=== PATIENT | female | born 1960 | race Caucasian/White ===

== ENCOUNTER 2021-09-09 12:29 | Inpatient (IN) | payer BC ==
[~2021-09-09] VITALS: Ht 162.6 cm; Wt 90.9 kg
[2021-09-09 14:44] LABS: BASOPHILS % (AUTO) 0.3 % (0-1); EOSINOPHILS % (AUTO) 0 % (0-6); HEMATOCRIT 42.4 % (35.0-45.0); HEMOGLOBIN 14.3 g/dl (12.0-16.0); LYMPHOCYTES # (AUTO) 0.6 X10'3 (1.1-4.8); MEAN CORPUSCULAR HEMOGLOBIN 30.8 PG (27.0-31.0); MEAN CORPUSCULAR HGB CONC 33.7 g/dL (33.0-36.5); MEAN CORPUSCULAR VOLUME 91.5 FL (78-98); MEAN PLATELET VOLUME 8.3 FL (7.4-10.4); MONOCYTES # (AUTO) 0.4 X10'3 (0-0.9); MONOCYTES % (AUTO) 6.1 % (2-12); NEUTROPHILS # (AUTO) 4.8 X10'3 (1.8-7.7); NEUTROPHILS % (AUTO) 82.6 % (42-75); PLATELET COUNT 200 X10'3 (140-440); RED BLOOD COUNT 4.63 X10'6 (4.20-5.60); RED CELL DISTRIBUTION WIDTH 13.3 % (11.5-14.5); WHITE BLOOD COUNT 5.8 X10'3 (4.5-11.0)
[2021-09-09 14:52] LABS: D-DIMER 1.71 MG/L FEU (0-0.50)
[2021-09-09 15:00] LABS: ALANINE AMINOTRANSFERASE 84 U/L (12-78); ALBUMIN 3.6 G/DL (3.4-5.0); ALBUMIN/GLOBULIN RATIO 0.7 (1.1-1.5); ALKALINE PHOSPHATASE 124 IU/L (46-116); ANION GAP 14 (8-16); ASPARTATE AMINO TRANSFERASE 72 U/L (10-37); BILIRUBIN,TOTAL 0.5 MG/DL (0.1-1.0); BLOOD UREA NITROGEN 12 MG/DL (7-18); C-REACTIVE PROTEIN 20.46 MG/DL (0.0-0.5); CHLORIDE 96 MMOL/L (99-107); GLUCOSE 126 MG/DL (70-104); POTASSIUM 3.5 MMOL/L (3.5-5.1); SODIUM 135 MMOL/L (135-145); TOTAL CARBON DIOXIDE 25.5 MMOL/L (24-32); TOTAL PROTEIN 8.7 G/DL (6.4-8.2); eGFR 56 ML/MIN
[2021-09-09] MEDS ORDERED: HYDROcodone/acetaminophen 5mg/325mg tablet PO ONE (15:25)
[2021-09-09] MEDS ORDERED: dexamethasone sod phosphate 10mg/ml inj IV STA (15:25)
--- NOTE | 2021-09-09 15:31 | NUR ---
paged dr. huerta infection control [phone]
[2021-09-09] MEDS ORDERED: REMDESIVIR INJ 200 MG in normal saline 100ml IV soln 60 ML IV ONE (15:35)
[2021-09-09] MEDS ORDERED: HYDROcodone/acetaminophen 10/325mg tab PO ONE (15:40)
[2021-09-09] MEDS ORDERED: iohexol 300mg/ml 100ml inj. ONE (15:50)
[2021-09-09] MEDS ORDERED: iohexol 350MG/ML 100ml bottle IV ONE (16:40)
[2021-09-09] MEDS ORDERED: ALPR1TAB7 PO (16:41)
[2021-09-09] MEDS ORDERED: AMPH30CA3 PO (16:41)
[2021-09-09] MEDS ORDERED: HYDR-3972 PO (16:41)
[2021-09-09] MEDS ORDERED: OXYC60TA7 PO (16:41)
[2021-09-09] MEDS ORDERED: DULO60CA65 PO (17:20)
[2021-09-09] MEDS ORDERED: GLIP10TA11 PO (17:20)
[2021-09-09] MEDS ORDERED: CHOL500050 PO (17:20)
[2021-09-09] MEDS ORDERED: FENO145T26 PO (17:20)
[2021-09-09] MEDS ORDERED: HYDR25TA5 PO (17:20)
[2021-09-09] MEDS ORDERED: dextrose 50%-water 50ml dispensing syringe IV PRN ×2 (18:10)
[2021-09-09] MEDS: CefTRIAXone/D5W-Rocephin 1gm 50 ML IV SCH (18:10)
[2021-09-09] MEDS ORDERED: glucagon, human recombinant 1mg kit SUBCUT PRN (18:10)
[2021-09-09] MEDS ORDERED: MESSAGE TO PHARMACY PO ONE (18:10)
[2021-09-09] MEDS ORDERED: dextrose ORAL solution 15 GM/59 ML bottle PO PRN ×2 (18:10)
[2021-09-09] MEDS ORDERED: mag hydrox/Alum hydrox/simeth 30ml oral suspension PO PRN (18:10)
[2021-09-09] MEDS ORDERED: morphine 2 MG/ML inj. syringe IV PRN (18:10)
[2021-09-09] MEDS ORDERED: magnesium hydroxide 30ml (MOM) UD suspension PO PRN (18:10)
[2021-09-09] MEDS ORDERED: acetaminophen 325mg tablet PO PRN (18:10)
[2021-09-09 18:42] LABS: HEMOGLOBIN A1C 6.8 % (4.5-6.2)
[2021-09-09 18:58] LABS: MAGNESIUM 1.9 MG/DL (1.5-2.4); PHOSPHORUS 3.6 MG/DL (2.3-4.5)
[2021-09-09] MEDS: docusate sod 100mg capsule PO SCH (20:00)
[2021-09-09] MEDS ORDERED: dexamethasone sod phosphate 10mg/ml inj IV SCH (20:00)
[2021-09-09] MEDS: HYDROcodone/acetaminophen 10/325mg tab PO PRN (20:00)
--- NOTE | 2021-09-09 20:00 | NUR ---
pt continues to pull off lines and cuff.
[2021-09-09] MEDS: ALPRAZolam 0.5mg tablet PO SCH (20:01)
[2021-09-09] MEDS: morphine 2 MG/ML inj. syringe IV PRN (20:30)
[2021-09-09] MEDS: insulin Lispro (HumaLOG) vial - multi-dose SQ SCH (20:49)
[2021-09-09] MEDS: insulin glargine (Lantus) pen - multi-dose SQ SCH (21:00)
[2021-09-09] MEDS: dexamethasone 6 MG in NS 50ml IV soln IV SCH (21:56)
[2021-09-10] MEDS: OXYcodone (OXYCONTIN) Ext Release 15 MG TAB.SR.12H PO SCH ×3 (00:25→16:00)
[2021-09-10] MEDS: morphine 2 MG/ML inj. syringe IV PRN ×2 (03:23→11:51)
--- NOTE | 2021-09-10 04:21 | NUR ---
pt satting low with o2 in nose and mouth. pt takes it off and desats. spoke with rt and they are going to place a nonrebreather on pt.
[2021-09-10] MEDS: HYDROcodone/acetaminophen 10/325mg tab PO PRN ×2 (05:31→14:25)
[2021-09-10 07:26] LABS: BASOPHILS % (AUTO) 0.1 % (0-1); EOSINOPHILS % (AUTO) 0 % (0-6); HEMOGLOBIN 13.9 g/dl (12.0-16.0); LYMPHOCYTES # (AUTO) 0.6 X10'3 (1.1-4.8); LYMPHOCYTES % (AUTO) 10.9 % (21-51); MEAN CORPUSCULAR HEMOGLOBIN 31.8 PG (27.0-31.0); MEAN CORPUSCULAR HGB CONC 34.8 g/dL (33.0-36.5); MEAN CORPUSCULAR VOLUME 91.4 FL (78-98); MEAN PLATELET VOLUME 8.2 FL (7.4-10.4); MONOCYTES # (AUTO) 0.3 X10'3 (0-0.9); MONOCYTES % (AUTO) 5.3 % (2-12); NEUTROPHILS # (AUTO) 4.7 X10'3 (1.8-7.7); NEUTROPHILS % (AUTO) 83.7 % (42-75); PLATELET COUNT 194 X10'3 (140-440); RED BLOOD COUNT 4.37 X10'6 (4.20-5.60); RED CELL DISTRIBUTION WIDTH 13.2 % (11.5-14.5); WHITE BLOOD COUNT 5.6 X10'3 (4.5-11.0)
[2021-09-10 07:38] LABS: ALBUMIN 2.9 G/DL (3.4-5.0); ANION GAP 15 (8-16); BLOOD UREA NITROGEN 13 MG/DL (7-18); BUN/CREATININE RATIO 17.3 (6.6-38.0); CHLORIDE 99 MMOL/L (99-107); CREATININE 0.75 MG/DL (0.40-0.90); GLUCOSE 148 MG/DL (70-104); POTASSIUM 3.1 MMOL/L (3.5-5.1); SODIUM 136 MMOL/L (135-145); TOTAL CARBON DIOXIDE 21.7 MMOL/L (24-32); eGFR 78 ML/MIN
[2021-09-10] MEDS ORDERED: dextroamphetam/amphetam ER cap 15 MG CAP.ER.24H PO SCH (08:00)
[2021-09-10] MEDS: HYDROchlorothiazide 25mg tablet PO SCH (08:00)
[2021-09-10] MEDS: dexamethasone 6 MG in NS 50ml IV soln IV SCH ×2 (08:00→20:00)
[2021-09-10] MEDS: CefTRIAXone/D5W-Rocephin 1gm 50 ML IV SCH (08:00)
[2021-09-10] MEDS: REMDESIVIR 100 MG in NS 100ml IVPB IV SCH (08:00)
[2021-09-10] MEDS: enoxaparin 40mg/0.4ml syringe SUBCUT SCH (08:58)
[2021-09-10] MEDS: duloxetine 30mg CAPSULE.DR PO SCH (08:59)
[2021-09-10] MEDS: fenofibrate 145mg tablet PO SCH (08:59)
[2021-09-10] MEDS: docusate sod 100mg capsule PO SCH ×3 (08:59→19:45)
[2021-09-10] MEDS: ALPRAZolam 0.5mg tablet PO SCH ×4 (09:00→19:44)
[2021-09-10] MEDS: cholecalciferol (vitamin D3) 1,000 unit (25mcg) tablet PO SCH (09:00)
[2021-09-10 10:00] VITALS: BP 161/75
[2021-09-10 15:48] VITALS: BP 155/76
[2021-09-10] MEDS: lactobacillus rhamnosus 10,000 MMU CELLS/CAPSULE PO SCH (19:44)
[2021-09-10 19:45] VITALS: BP 143/77
[2021-09-10] MEDS: insulin glargine (Lantus) pen - multi-dose SQ SCH (21:00)
[2021-09-10 22:00] VITALS: BP 163/81
[2021-09-11] MEDS: OXYcodone (OXYCONTIN) Ext Release 15 MG TAB.SR.12H PO SCH ×3 (00:10→15:50)
[2021-09-11] MEDS: ondansetron/PF 4mg/2ml inj IV PRN (01:17)
[2021-09-11] MEDS: morphine 2 MG/ML inj. syringe IV PRN ×2 (05:54→20:30)
[2021-09-11 06:30] VITALS: BP 138/74
[2021-09-11] MEDS: CefTRIAXone/D5W-Rocephin 1gm 50 ML IV SCH (07:21)
[2021-09-11] MEDS: cholecalciferol (vitamin D3) 1,000 unit (25mcg) tablet PO SCH (07:22)
[2021-09-11] MEDS: ALPRAZolam 0.5mg tablet PO SCH ×4 (07:22→22:37)
[2021-09-11] MEDS: fenofibrate 145mg tablet PO SCH (07:22)
[2021-09-11] MEDS: lactobacillus rhamnosus 10,000 MMU CELLS/CAPSULE PO SCH ×2 (07:22→21:56)
[2021-09-11] MEDS: duloxetine 30mg CAPSULE.DR PO SCH (07:22)
[2021-09-11] MEDS: HYDROchlorothiazide 25mg tablet PO SCH (07:23)
[2021-09-11] MEDS: enoxaparin 40mg/0.4ml syringe SUBCUT SCH (07:23)
[2021-09-11] MEDS: ADDERALL 30 MG PO SCH (07:28)
[2021-09-11] MEDS: docusate sod 100mg capsule PO SCH ×2 (07:29→21:56)
[2021-09-11 09:41] LABS: BASOPHILS % (AUTO) 0.1 % (0-1); EOSINOPHILS % (AUTO) 0 % (0-6); HEMATOCRIT 42.4 % (35.0-45.0); HEMOGLOBIN 14.5 g/dl (12.0-16.0); LYMPHOCYTES # (AUTO) 0.9 X10'3 (1.1-4.8); LYMPHOCYTES % (AUTO) 11.4 % (21-51); MEAN CORPUSCULAR HEMOGLOBIN 31.8 PG (27.0-31.0); MEAN CORPUSCULAR HGB CONC 34.2 g/dL (33.0-36.5); MEAN CORPUSCULAR VOLUME 92.9 FL (78-98); MEAN PLATELET VOLUME 8.4 FL (7.4-10.4); MONOCYTES # (AUTO) 0.5 X10'3 (0-0.9); MONOCYTES % (AUTO) 6.1 % (2-12); NEUTROPHILS # (AUTO) 6.7 X10'3 (1.8-7.7); NEUTROPHILS % (AUTO) 82.4 % (42-75); PLATELET COUNT 266 X10'3 (140-440); RED BLOOD COUNT 4.56 X10'6 (4.20-5.60); RED CELL DISTRIBUTION WIDTH 13.6 % (11.5-14.5); WHITE BLOOD COUNT 8.2 X10'3 (4.5-11.0)
[2021-09-11 09:46] LABS: ALBUMIN 2.7 G/DL (3.4-5.0); ANION GAP 5 (8-16); BLOOD UREA NITROGEN 16 MG/DL (7-18); BUN/CREATININE RATIO 19.8 (6.6-38.0); CALCIUM 9.5 MG/DL (8.5-10.1); CHLORIDE 96 MMOL/L (99-107); CREATININE 0.81 MG/DL (0.40-0.90); GLUCOSE 152 MG/DL (70-104); SODIUM 131 MMOL/L (135-145); TOTAL CARBON DIOXIDE 30.1 MMOL/L (24-32); eGFR 72 ML/MIN
[2021-09-11] MEDS: dexamethasone 6 MG in NS 50ml IV soln IV SCH ×2 (09:47→21:56)
[2021-09-11 10:00] VITALS: BP 138/75
[2021-09-11] MEDS: insulin Lispro (HumaLOG) vial - multi-dose SQ SCH ×3 (10:08→20:28)
[2021-09-11] MEDS: REMDESIVIR 100 MG in NS 100ml IVPB IV SCH (11:28)
[2021-09-11] MEDS: guaiFENesin 200 MG/10 ML oral syrup UD cup PO PRN ×2 (14:53→14:57)
[2021-09-11 15:06] VITALS: BP 129/61
--- NOTE | 2021-09-11 18:40 | NUR ---
Problems reprioritized. Patient report given, questions answered & plan of care reviewed with PHIL CASTELLANOS.
[2021-09-11 19:31] LABS: ABG BASE EXCESS 3.3 mmol/L (-2.0-2.0); ABG HCO3 28.9 mmol/L (22.0-26.0); ABG PCO2 (T) 47.1 mmHg (32.0-45.0); ABG PO2 (T) 55.1 mmHg (75.0-100.0); ALLEN'S TEST POSITIVE; FCOHb 0.6 % (0.0-3.9); FMetHb 0.3 % (0.0-1.5); FO2Hb 88.2 % (94-97); TOTAL HEMOGLOBIN 14.5 G/dl (12.0-16.0)
[2021-09-11] MEDS: acetaminophen 325mg tablet PO PRN (21:54)
[2021-09-11 22:00] VITALS: BP 150/71
[2021-09-11] MEDS: insulin glargine (Lantus) pen - multi-dose SQ SCH (22:25)
[2021-09-12] MEDS: OXYcodone (OXYCONTIN) Ext Release 15 MG TAB.SR.12H PO SCH ×4 (01:11→23:13)
[2021-09-12 02:00] VITALS: BP 146/74
[2021-09-12] MEDS: HYDROcodone/acetaminophen 10/325mg tab PO PRN ×2 (03:40→13:24)
[2021-09-12 06:17] VITALS: BP 135/72
--- NOTE | 2021-09-12 06:23 | NUR ---
Patient in room ORTHO 4009. I have received report from PHIL CASTELLANOS and had the opportunity to ask questions and assume patient care.
[2021-09-12] MEDS: fenofibrate 145mg tablet PO SCH (07:07)
[2021-09-12] MEDS: duloxetine 30mg CAPSULE.DR PO SCH (07:07)
[2021-09-12] MEDS: HYDROchlorothiazide 25mg tablet PO SCH (07:07)
[2021-09-12] MEDS: cholecalciferol (vitamin D3) 1,000 unit (25mcg) tablet PO SCH (07:07)
[2021-09-12] MEDS: lactobacillus rhamnosus 10,000 MMU CELLS/CAPSULE PO SCH ×2 (07:08→21:37)
[2021-09-12] MEDS: enoxaparin 40mg/0.4ml syringe SUBCUT SCH (07:08)
[2021-09-12] MEDS: ALPRAZolam 0.5mg tablet PO SCH ×4 (07:08→21:37)
[2021-09-12] MEDS: dexamethasone 6 MG in NS 50ml IV soln IV SCH ×2 (07:08→21:37)
[2021-09-12] MEDS: morphine 2 MG/ML inj. syringe IV PRN (07:09)
[2021-09-12] MEDS: ADDERALL 30 MG PO SCH (07:09)
[2021-09-12 07:13] LABS: BASOPHILS % (AUTO) 0 % (0-1); EOSINOPHILS % (AUTO) 0 % (0-6); HEMATOCRIT 40.3 % (35.0-45.0); HEMOGLOBIN 13.7 g/dl (12.0-16.0); LYMPHOCYTES # (AUTO) 0.9 X10'3 (1.1-4.8); LYMPHOCYTES % (AUTO) 8.3 % (21-51); MEAN CORPUSCULAR HEMOGLOBIN 31.6 PG (27.0-31.0); MEAN CORPUSCULAR HGB CONC 34.1 g/dL (33.0-36.5); MEAN CORPUSCULAR VOLUME 92.6 FL (78-98); MEAN PLATELET VOLUME 8.5 FL (7.4-10.4); MONOCYTES # (AUTO) 0.7 X10'3 (0-0.9); MONOCYTES % (AUTO) 6.6 % (2-12); NEUTROPHILS # (AUTO) 8.9 X10'3 (1.8-7.7); NEUTROPHILS % (AUTO) 85.1 % (42-75); PLATELET COUNT 292 X10'3 (140-440); RED BLOOD COUNT 4.35 X10'6 (4.20-5.60); RED CELL DISTRIBUTION WIDTH 13.3 % (11.5-14.5); WHITE BLOOD COUNT 10.5 X10'3 (4.5-11.0)
[2021-09-12 07:24] LABS: D-DIMER 1.12 MG/L FEU (0-0.50)
[2021-09-12 07:51] LABS: ALBUMIN 2.4 G/DL (3.4-5.0); ANION GAP 5 (8-16); BLOOD UREA NITROGEN 20 MG/DL (7-18); BUN/CREATININE RATIO 25.6 (6.6-38.0); C-REACTIVE PROTEIN 10.16 MG/DL (0.0-0.5); CALCIUM 9.2 MG/DL (8.5-10.1); CHLORIDE 97 MMOL/L (99-107); CREATININE 0.78 MG/DL (0.40-0.90); GLUCOSE 173 MG/DL (70-104); POTASSIUM 3.5 MMOL/L (3.5-5.1); SODIUM 133 MMOL/L (135-145); TOTAL CARBON DIOXIDE 30.7 MMOL/L (24-32); eGFR 75 ML/MIN
[2021-09-12] MEDS: docusate sod 100mg capsule PO SCH ×2 (08:00→21:37)
[2021-09-12] MEDS: CefTRIAXone/D5W-Rocephin 1gm 50 ML IV SCH (09:26)
[2021-09-12] MEDS: insulin Lispro (HumaLOG) vial - multi-dose SQ SCH ×3 (09:28→19:39)
[2021-09-12 10:00] VITALS: BP 151/76
[2021-09-12] MEDS: REMDESIVIR 100 MG in NS 100ml IVPB IV SCH (11:13)
[2021-09-12] MEDS: diphenhydrAMINE 25 MG/10 ML UD oral solution PO PRN (14:10)
[2021-09-12 14:58] VITALS: BP 130/84
[2021-09-12 18:00] VITALS: BP 121/78
--- NOTE | 2021-09-12 18:33 | NUR ---
Problems reprioritized. Patient report given, questions answered & plan of care reviewed with AL CASTELLANOS.
[2021-09-12] MEDS: insulin glargine (Lantus) pen - multi-dose SQ SCH (21:17)
[2021-09-12 22:00] VITALS: BP 125/77
[2021-09-13 02:00] VITALS: BP 124/57
[2021-09-13] MEDS: HYDROcodone/acetaminophen 10/325mg tab PO PRN (03:03)
--- NOTE | 2021-09-13 03:12 | NUR ---
Pt continues to be non compliant and won't keep her O2 on. She also has been trying to get out of her bed unassisted all shift.
--- NOTE | 2021-09-13 06:22 | NUR ---
Problems reprioritized. Patient report given, questions answered & plan of care reviewed with Cat CASTELLANOS.
[2021-09-13 07:32] LABS: D-DIMER 1.64 MG/L FEU (0-0.50)
[2021-09-13 07:55] LABS: ALANINE AMINOTRANSFERASE 39 U/L (12-78); ALBUMIN 2.4 G/DL (3.4-5.0); ALBUMIN/GLOBULIN RATIO 0.5 (1.1-1.5); ALKALINE PHOSPHATASE 93 IU/L (46-116); ANION GAP 9 (8-16); ASPARTATE AMINO TRANSFERASE 35 U/L (10-37); BILIRUBIN,TOTAL 0.5 MG/DL (0.1-1.0); BLOOD UREA NITROGEN 22 MG/DL (7-18); C-REACTIVE PROTEIN 7.47 MG/DL (0.0-0.5); CALCIUM 9.6 MG/DL (8.5-10.1); CHLORIDE 98 MMOL/L (99-107); CREATININE 0.71 MG/DL (0.40-0.90); GLUCOSE 153 MG/DL (70-104); POTASSIUM 3.5 MMOL/L (3.5-5.1); SODIUM 137 MMOL/L (135-145); TOTAL CARBON DIOXIDE 29.9 MMOL/L (24-32); TOTAL PROTEIN 7.3 G/DL (6.4-8.2); eGFR 83 ML/MIN
[2021-09-13] MEDS: CefTRIAXone/D5W-Rocephin 1gm 50 ML IV SCH (08:34)
[2021-09-13] MEDS: dexamethasone 6 MG in NS 50ml IV soln IV SCH ×2 (08:34→19:28)
[2021-09-13] MEDS: fenofibrate 145mg tablet PO SCH (08:34)
[2021-09-13] MEDS: OXYcodone (OXYCONTIN) Ext Release 15 MG TAB.SR.12H PO SCH ×2 (08:34→16:13)
[2021-09-13] MEDS: duloxetine 30mg CAPSULE.DR PO SCH (08:34)
[2021-09-13] MEDS: lactobacillus rhamnosus 10,000 MMU CELLS/CAPSULE PO SCH ×2 (08:35→19:26)
[2021-09-13] MEDS: ALPRAZolam 0.5mg tablet PO SCH ×4 (08:35→19:26)
[2021-09-13] MEDS: docusate sod 100mg capsule PO SCH ×2 (08:35→19:26)
[2021-09-13] MEDS: enoxaparin 40mg/0.4ml syringe SUBCUT SCH (08:35)
[2021-09-13] MEDS: HYDROchlorothiazide 25mg tablet PO SCH (08:35)
[2021-09-13] MEDS: cholecalciferol (vitamin D3) 1,000 unit (25mcg) tablet PO SCH (08:35)
[2021-09-13 09:59] VITALS: BP 152/78
[2021-09-13 10:12] LABS: BASOPHILS % (AUTO) 0.1 % (0-1); EOSINOPHILS % (AUTO) 0 % (0-6); HEMATOCRIT 39.8 % (35.0-45.0); HEMOGLOBIN 13.5 g/dl (12.0-16.0); LYMPHOCYTES # (AUTO) 1.3 X10'3 (1.1-4.8); LYMPHOCYTES % (AUTO) 7.8 % (21-51); MEAN CORPUSCULAR HGB CONC 33.9 g/dL (33.0-36.5); MEAN CORPUSCULAR VOLUME 91.6 FL (78-98); MEAN PLATELET VOLUME 8.1 FL (7.4-10.4); MONOCYTES # (AUTO) 1.1 X10'3 (0-0.9); MONOCYTES % (AUTO) 6.9 % (2-12); NEUTROPHILS % (AUTO) 85.2 % (42-75); PLATELET COUNT 350 X10'3 (140-440); RED BLOOD COUNT 4.35 X10'6 (4.20-5.60); RED CELL DISTRIBUTION WIDTH 13.1 % (11.5-14.5); WHITE BLOOD COUNT 16.4 X10'3 (4.5-11.0)
--- NOTE | 2021-09-13 11:02 | NUR ---
Initial: Pt admit DX COVID-19, PNA, and acute encephalopathy possibly metabolic per MD note. Hx T2DM A1C 6.8 per EMR; no education indicated. Pt PO ~25% initial carb controlled diet partially meeting needs. Noted AOx2/confused, LBM 09/09 receiving colace, and currently on 30L HFNC per EMR; constipation, ALOC, and DX likely impacting PO trends. RD recommends Ensure Enlive TIDWM for additional protein/kcals; MD notified. Will continue to monitor. Rec: 1. continue carb controlled diet; consider liberalizing to regular given poor PO trends; encourage PO 2. Ensure Enlive TIDWM; pending MD verification in EMR 3. routine bowel care; 4 days constipation 4. weekly wts Addendum: 09/13/21 at [address] Amended: Links added.
[2021-09-13] MEDS: ADDERALL 30 MG PO SCH (11:25)
[2021-09-13] MEDS: REMDESIVIR 100 MG in NS 100ml IVPB IV SCH (11:26)
--- NOTE | 2021-09-13 11:37 | NUR ---
DM Consult: Addressed; see prior RD note. Addendum: 09/13/21 at [address] Amended: Links added.
[2021-09-13 11:51] LABS: PLATELET ESTIMATE NORMAL; TOTAL CELLS COUNTED 100
[2021-09-13 11:55] LABS: SMUDGE CELLS 2+
[2021-09-13] MEDS: lactose-reduced food (Ensure Enlive) - 237ml bottle PO SCH ×2 (13:00→18:00)
[2021-09-13] MEDS: insulin Lispro (HumaLOG) vial - multi-dose SQ SCH ×2 (15:16→21:42)
--- NOTE | 2021-09-13 16:22 | NUR ---
Pt rested in room throughout shift. Pt remained confused, sedated throughout day. Afternoon dose of scheduled medications held due to patients inability to follow commands. Dr. Garcia notified and new orders placed for ABG lab for patient. Will continue to monitor patient and will notify MD with any changes in patients condition.
[2021-09-13 18:00] VITALS: BP 145/89
[2021-09-13 18:00] LABS: ABG BASE EXCESS 3.7 mmol/L (-2.0-2.0); ABG HCO3 29.1 mmol/L (22.0-26.0); ABG OXYGEN SATURATION 90.1 % (94-97); ABG PCO2 (T) 46.4 mmHg (32.0-45.0); ABG PO2 (T) 58.7 mmHg (75.0-100.0); ALLEN'S TEST POSITIVE; FCOHb 0.6 % (0.0-3.9); FLOW 50 L/min; FMetHb 0.3 % (0.0-1.5); FO2Hb 89.3 % (94-97)
[2021-09-13] MEDS: insulin glargine (Lantus) pen - multi-dose SQ SCH (21:41)
[2021-09-13 22:00] VITALS: BP 112/61
[2021-09-14] MEDS: OXYcodone (OXYCONTIN) Ext Release 15 MG TAB.SR.12H PO SCH ×3 (00:55→16:45)
[2021-09-14] MEDS: morphine 2 MG/ML inj. syringe IV PRN (01:53)
[2021-09-14] MEDS: HYDROcodone/acetaminophen 10/325mg tab PO PRN (05:15)
--- NOTE | 2021-09-14 06:07 | NUR ---
Problems reprioritized. Patient report given, questions answered & plan of care reviewed with Cat.
[2021-09-14] MEDS: lactose-reduced food (Ensure Enlive) - 237ml bottle PO SCH ×3 (08:00→18:00)
[2021-09-14] MEDS: ADDERALL 30 MG PO SCH (08:00)
[2021-09-14 08:07] VITALS: BP 135/57
[2021-09-14 08:18] LABS: EOSINOPHILS % (AUTO) 0 % (0-6); HEMOGLOBIN 12.6 g/dl (12.0-16.0); MONOCYTES # (AUTO) 0.6 X10'3 (0-0.9); RED BLOOD COUNT 4.04 X10'6 (4.20-5.60)
[2021-09-14 08:20] LABS: BASOPHILS % (AUTO) 0.1 % (0-1); HEMATOCRIT 37.1 % (35.0-45.0); LYMPHOCYTES # (AUTO) 1.1 X10'3 (1.1-4.8); LYMPHOCYTES % (AUTO) 6.5 % (21-51); MEAN CORPUSCULAR HEMOGLOBIN 31.1 PG (27.0-31.0); MEAN CORPUSCULAR HGB CONC 33.9 g/dL (33.0-36.5); MEAN CORPUSCULAR VOLUME 91.8 FL (78-98); MEAN PLATELET VOLUME 8.2 FL (7.4-10.4); MONOCYTES % (AUTO) 3.8 % (2-12); NEUTROPHILS # (AUTO) 14.5 X10'3 (1.8-7.7); NEUTROPHILS % (AUTO) 89.6 % (42-75); PLATELET COUNT 350 X10'3 (140-440); RED CELL DISTRIBUTION WIDTH 13.5 % (11.5-14.5); WHITE BLOOD COUNT 16.2 X10'3 (4.5-11.0)
[2021-09-14 08:58] LABS: ALBUMIN 2.1 G/DL (3.4-5.0); ANION GAP 8 (8-16); BLOOD UREA NITROGEN 18 MG/DL (7-18); BUN/CREATININE RATIO 24.3 (6.6-38.0); CALCIUM 8.6 MG/DL (8.5-10.1); CHLORIDE 97 MMOL/L (99-107); CREATININE 0.74 MG/DL (0.40-0.90); GLUCOSE 193 MG/DL (70-104); POTASSIUM 3.3 MMOL/L (3.5-5.1); SODIUM 136 MMOL/L (135-145); TOTAL CARBON DIOXIDE 30.6 MMOL/L (24-32); eGFR 80 ML/MIN
[2021-09-14] MEDS: cholecalciferol (vitamin D3) 1,000 unit (25mcg) tablet PO SCH (09:11)
[2021-09-14] MEDS: dexamethasone 6 MG in NS 50ml IV soln IV SCH ×2 (09:11→20:00)
[2021-09-14] MEDS: CefTRIAXone/D5W-Rocephin 1gm 50 ML IV SCH (09:11)
[2021-09-14] MEDS: fenofibrate 145mg tablet PO SCH (09:12)
[2021-09-14] MEDS: duloxetine 30mg CAPSULE.DR PO SCH (09:12)
[2021-09-14] MEDS: ALPRAZolam 0.5mg tablet PO SCH ×4 (09:12→19:59)
[2021-09-14] MEDS: docusate sod 100mg capsule PO SCH ×2 (09:12→20:00)
[2021-09-14] MEDS: lactobacillus rhamnosus 10,000 MMU CELLS/CAPSULE PO SCH ×2 (09:14→19:59)
[2021-09-14] MEDS: enoxaparin 40mg/0.4ml syringe SUBCUT SCH (09:15)
[2021-09-14] MEDS: HYDROchlorothiazide 25mg tablet PO SCH (09:21)
[2021-09-14 10:00] VITALS: BP 150/63
[2021-09-14] MEDS: insulin Lispro (HumaLOG) vial - multi-dose SQ SCH ×2 (10:32→14:18)
[2021-09-14] MEDS ORDERED: LIDOcaine 2% 10ml TOPICAL JELLY (Urojet) TP ONE (12:45)
[2021-09-14 14:00] VITALS: BP 129/45
[2021-09-14 18:00] VITALS: BP 143/78
[2021-09-14] MEDS: insulin glargine (Lantus) pen - multi-dose SQ SCH (21:46)
[2021-09-14 22:00] VITALS: BP 131/77
[2021-09-15] MEDS: methylPREDNISolone sod succ 125mg/2ml vial IV SCH ×4 (00:12→23:45)
[2021-09-15] MEDS: HYDROcodone/acetaminophen 10/325mg tab PO PRN (00:13)
[2021-09-15 02:00] VITALS: BP 123/75
[2021-09-15 06:00] VITALS: BP 131/69
--- NOTE | 2021-09-15 06:10 | NUR ---
Problems reprioritized. Patient report given, questions answered & plan of care reviewed with Cat CASTELLANOS.
[2021-09-15] MEDS: ADDERALL 30 MG PO SCH (08:00)
[2021-09-15] MEDS: lactose-reduced food (Ensure Enlive) - 237ml bottle PO SCH ×3 (08:00→18:00)
[2021-09-15] MEDS: docusate sod 100mg capsule PO SCH ×2 (08:43→20:44)
[2021-09-15] MEDS: CefTRIAXone/D5W-Rocephin 1gm 50 ML IV SCH (08:43)
[2021-09-15] MEDS: enoxaparin 40mg/0.4ml syringe SUBCUT SCH (08:43)
[2021-09-15] MEDS: lactobacillus rhamnosus 10,000 MMU CELLS/CAPSULE PO SCH ×2 (08:43→20:43)
[2021-09-15] MEDS: fenofibrate 145mg tablet PO SCH (08:43)
[2021-09-15] MEDS: ALPRAZolam 0.5mg tablet PO SCH ×4 (08:43→20:43)
[2021-09-15] MEDS: duloxetine 30mg CAPSULE.DR PO SCH (08:44)
[2021-09-15 08:51] LABS: D-DIMER 0.93 MG/L FEU (0-0.50)
[2021-09-15] MEDS: cholecalciferol (vitamin D3) 1,000 unit (25mcg) tablet PO SCH (08:53)
[2021-09-15] MEDS: HYDROchlorothiazide 25mg tablet PO SCH (09:11)
[2021-09-15] MEDS: insulin Lispro (HumaLOG) vial - multi-dose SQ SCH ×3 (09:17→21:06)
[2021-09-15 10:00] VITALS: BP 144/60
[2021-09-15] MEDS ORDERED: oxyCODONE SR 40mg (sust release) tab PO SCH (11:55)
[2021-09-15] MEDS ORDERED: LORazepam 2 mg/ml vial IV ONE (11:55)
[2021-09-15] MEDS: oxyCODONE SR 10mg (sust. release) tab PO SCH ×2 (13:48→20:43)
[2021-09-15 14:00] VITALS: BP 169/87
[2021-09-15 14:18] LABS: EOSINOPHILS % (AUTO) 0 % (0-6); LYMPHOCYTES # (AUTO) 0.9 X10'3 (1.1-4.8); MEAN PLATELET VOLUME 8.1 FL (7.4-10.4); RED CELL DISTRIBUTION WIDTH 13.6 % (11.5-14.5); WHITE BLOOD COUNT 22.4 X10'3 (4.5-11.0)
[2021-09-15 14:19] LABS: BASOPHILS % (AUTO) 0.1 % (0-1); HEMATOCRIT 41.1 % (35.0-45.0); MEAN CORPUSCULAR HEMOGLOBIN 31.1 PG (27.0-31.0); MEAN CORPUSCULAR VOLUME 91.5 FL (78-98); MONOCYTES % (AUTO) 4.4 % (2-12); NEUTROPHILS # (AUTO) 20.5 X10'3 (1.8-7.7); NEUTROPHILS % (AUTO) 91.5 % (42-75); PLATELET COUNT 465 X10'3 (140-440)
[2021-09-15 14:26] LABS: ALBUMIN 2.2 G/DL (3.4-5.0); ANION GAP 9 (8-16); BLOOD UREA NITROGEN 21 MG/DL (7-18); BUN/CREATININE RATIO 27.3 (6.6-38.0); CALCIUM 9.8 MG/DL (8.5-10.1); CHLORIDE 97 MMOL/L (99-107); CREATININE 0.77 MG/DL (0.40-0.90); GLUCOSE 177 MG/DL (70-104); POTASSIUM 3.3 MMOL/L (3.5-5.1); SODIUM 137 MMOL/L (135-145); TOTAL CARBON DIOXIDE 31.5 MMOL/L (24-32); eGFR 76 ML/MIN
[2021-09-15 14:42] LABS: PLATELET ESTIMATE INCREASED; POLYCHROMASIA FEW; TOTAL CELLS COUNTED 100; TOXIC VACUOLATION FEW
[2021-09-15] MEDS ORDERED: ziprasidone IM 20mg inj **IM only IM ONE (15:55)
[2021-09-15 18:00] VITALS: BP 155/80
--- NOTE | 2021-09-15 18:00 | NUR ---
also on 15liters NRB mask Addendum: 09/15/21 at 2036 by Beverly Maldonado RN Amended: Links added.
--- NOTE | 2021-09-15 18:06 | NUR ---
Pt rested in room throughout the AM. At appx 10am pt became combative and aggressive and pulling hi flow O2 and and O2 mask off of face. Pt was not easily directble and refused to place items back on and would not allow staff to assist without aggressive behavior. Pt proceeded to kick and fight. notified and new orders placed. Pt became more upset and aggressive and needed addition medication. MD verbally ordered one time medication for patients uncontrollable behavior. Pt provided ordered medication and calmed down. Please see MAR and additional orders and addtl information. Addendum: 09/15/21 at 1838 by Vasyl Murray RN Pt care needs required frequent checks and maximum care throughout the day. PM nurse provided full report of patient.
--- NOTE | 2021-09-15 18:15 | NUR ---
Patient in room ORTHO 4009. I have received report from Vasyl CASTELLANOS and had the opportunity to ask questions and assume patient care. Addendum: 09/15/21 at 1848 by Brynn Hill RN Amended: Links added.
[2021-09-15] MEDS ORDERED: potassium Cl 40MEQ/1/2NS 520ml 520 ML IV PRN (19:45)
[2021-09-15] MEDS ORDERED: potassium Cl 20 mEq SR tablet PO PRN (19:45)
[2021-09-15] MEDS: K and/or MAG REPLACEMENT MC SCH (20:00)
--- NOTE | 2021-09-15 20:35 | NUR ---
Pt. is awake and alert to own name, place, but not to current events; reoriented pt. Cleaned pt. and repositioned for comfort. Released restraints and no s/s of injuries noted at this time; pt cooperative. Sitter in place for bed A but also keeping an eye on the patient. Bed in low position. Addendum: 09/16/21 at 0002 by Brynn Hill RN Amended: Links added.
[2021-09-15 22:00] VITALS: BP 142/67
--- NOTE | 2021-09-15 22:00 | NUR ---
60liters HF and also wearing 15 liters nrb mask Addendum: 09/15/21 at 2247 by Beverly Maldonado RN Amended: Links added.
--- NOTE | 2021-09-15 23:00 | NUR ---
Left a voice mail message for Montse taylor's family member Addendum: 09/16/21 at 0714 by Brynn Hill RN Amended: Links added.
[2021-09-15] MEDS: insulin glargine (Lantus) pen - multi-dose SQ SCH (23:03)
[2021-09-15] MEDS: acetaminophen 325mg tablet PO PRN (23:54)
[2021-09-16] MEDS: potassium Cl 20 mEq SR tablet PO PRN ×2 (00:45→05:00)
[2021-09-16 02:00] VITALS: BP 118/72
--- NOTE | 2021-09-16 02:00 | NUR ---
wearing 15liters nrb mask and 60 liters high flow oxygen Addendum: 09/16/21 at 0227 by Beverly Maldonado RN Amended: Links added.
--- NOTE | 2021-09-16 04:53 | NUR ---
Please omit any charting on hourly rounding that indicated no restraints or sitter for this patient; pt. in restraints, a sitter, and audible tab alarms all in place. Addendum: 09/16/21 at 0455 by Brynn Hill RN Amended: Links added.
[2021-09-16 06:00] VITALS: BP 135/79
--- NOTE | 2021-09-16 06:00 | NUR ---
wearing 15liters nrb mask along with high flow oxygen Addendum: 09/16/21 at 0632 by Beverly Maldonado RN Amended: Links added.
--- NOTE | 2021-09-16 06:25 | NUR ---
Problems reprioritized. Patient report given, questions answered & plan of care reviewed with Mayi CASTELLANOS. Addendum: 09/16/21 at 0628 by Brynn Hill RN Amended: Links added.
--- NOTE | 2021-09-16 06:51 | NUR ---
Patient in room ORTHO 4010B. I have received report from JASMIN SCHULTZ and had the opportunity to ask questions and assume patient care.
[2021-09-16] MEDS: cholecalciferol (vitamin D3) 1,000 unit (25mcg) tablet PO SCH (07:24)
[2021-09-16] MEDS: docusate sod 100mg capsule PO SCH ×2 (07:24→19:01)
[2021-09-16] MEDS: ALPRAZolam 0.5mg tablet PO SCH ×4 (07:25→19:02)
[2021-09-16] MEDS: fenofibrate 145mg tablet PO SCH (07:25)
[2021-09-16] MEDS: oxyCODONE SR 10mg (sust. release) tab PO SCH ×2 (07:25→19:02)
[2021-09-16] MEDS: HYDROchlorothiazide 25mg tablet PO SCH (07:25)
[2021-09-16] MEDS: lactobacillus rhamnosus 10,000 MMU CELLS/CAPSULE PO SCH ×2 (07:25→19:01)
[2021-09-16] MEDS: CefTRIAXone/D5W-Rocephin 1gm 50 ML IV SCH (07:25)
[2021-09-16] MEDS: duloxetine 30mg CAPSULE.DR PO SCH (07:25)
[2021-09-16] MEDS: methylPREDNISolone sod succ 125mg/2ml vial IV SCH ×3 (07:26→23:47)
[2021-09-16] MEDS: enoxaparin 40mg/0.4ml syringe SUBCUT SCH (07:26)
[2021-09-16 07:38] LABS: BASOPHILS % (AUTO) 0.3 % (0-1); EOSINOPHILS % (AUTO) 0.1 % (0-6); HEMATOCRIT 40.8 % (35.0-45.0); HEMOGLOBIN 14.1 g/dl (12.0-16.0); LYMPHOCYTES % (AUTO) 5.8 % (21-51); MEAN CORPUSCULAR HEMOGLOBIN 31.4 PG (27.0-31.0); MEAN CORPUSCULAR HGB CONC 34.5 g/dL (33.0-36.5); MEAN CORPUSCULAR VOLUME 90.9 FL (78-98); MEAN PLATELET VOLUME 8.4 FL (7.4-10.4); MONOCYTES # (AUTO) 0.4 X10'3 (0-0.9); MONOCYTES % (AUTO) 2.5 % (2-12); NEUTROPHILS # (AUTO) 15.2 X10'3 (1.8-7.7); NEUTROPHILS % (AUTO) 91.3 % (42-75); PLATELET COUNT 506 X10'3 (140-440); RED BLOOD COUNT 4.49 X10'6 (4.20-5.60); RED CELL DISTRIBUTION WIDTH 13.4 % (11.5-14.5); WHITE BLOOD COUNT 16.6 X10'3 (4.5-11.0)
[2021-09-16 07:49] LABS: ALBUMIN 2.1 G/DL (3.4-5.0); ANION GAP 6 (8-16); BLOOD UREA NITROGEN 22 MG/DL (7-18); BUN/CREATININE RATIO 26.2 (6.6-38.0); CALCIUM 9.4 MG/DL (8.5-10.1); CHLORIDE 99 MMOL/L (99-107); CREATININE 0.84 MG/DL (0.40-0.90); GLUCOSE 191 MG/DL (70-104); SODIUM 133 MMOL/L (135-145); TOTAL CARBON DIOXIDE 28.4 MMOL/L (24-32); eGFR 69 ML/MIN
[2021-09-16] MEDS: ADDERALL 30 MG PO SCH (07:54)
[2021-09-16] MEDS: lactose-reduced food (Ensure Enlive) - 237ml bottle PO SCH ×3 (08:00→18:00)
[2021-09-16] MEDS: K and/or MAG REPLACEMENT MC SCH ×2 (08:00→19:01)
--- NOTE | 2021-09-16 09:25 | NUR ---
Reassessment: Pt w/ mostly 0% meal intake on CCHO diet not meeting needs. ONS unverified in EMR, paged MD regarding current recommendation for Ensure Enlive TID. Pt currently on 60L oxygen via HFNC, likely impacting PO intake. LBM 09/09 receiving routine colace. No new nutrition intervention implemented at this time, will continue to monitor. Rec: 1. continue carb controlled diet; consider liberalizing to regular given poor PO trends; encourage PO 2. Ensure Enlive TIDWM; pending MD verification in EMR 3. routine bowel care; 4 days constipation 4. weekly wts Addendum: 09/16/21 at [address] Amended: Links added.
[2021-09-16 10:00] VITALS: BP 158/83
[2021-09-16] MEDS: insulin Lispro (HumaLOG) vial - multi-dose SQ SCH ×3 (10:24→18:52)
[2021-09-16 18:00] VITALS: BP 154/85
--- NOTE | 2021-09-16 18:45 | NUR ---
Problems reprioritized. Patient report given, questions answered & plan of care reviewed with JASMIN SAMPSON.
[2021-09-16] MEDS: insulin glargine (Lantus) pen - multi-dose SQ SCH (21:16)
[2021-09-17 02:00] VITALS: BP 158/76
[2021-09-17 06:00] VITALS: BP 139/81
--- NOTE | 2021-09-17 06:24 | NUR ---
Problems reprioritized. Patient report given, questions answered & plan of care reviewed with JASMIN Manzo.
[2021-09-17 06:57] LABS: BASOPHILS % (AUTO) 0.1 % (0-1); EOSINOPHILS % (AUTO) 0 % (0-6); HEMATOCRIT 45.1 % (35.0-45.0); HEMOGLOBIN 15.2 g/dl (12.0-16.0); LYMPHOCYTES # (AUTO) 0.9 X10'3 (1.1-4.8); LYMPHOCYTES % (AUTO) 5.2 % (21-51); MEAN CORPUSCULAR HEMOGLOBIN 31.2 PG (27.0-31.0); MEAN CORPUSCULAR HGB CONC 33.8 g/dL (33.0-36.5); MEAN CORPUSCULAR VOLUME 92.4 FL (78-98); MEAN PLATELET VOLUME 8.1 FL (7.4-10.4); MONOCYTES # (AUTO) 0.4 X10'3 (0-0.9); MONOCYTES % (AUTO) 2.4 % (2-12); NEUTROPHILS # (AUTO) 16.4 X10'3 (1.8-7.7); NEUTROPHILS % (AUTO) 92.3 % (42-75); PLATELET COUNT 527 X10'3 (140-440); RED BLOOD COUNT 4.88 X10'6 (4.20-5.60); RED CELL DISTRIBUTION WIDTH 13.7 % (11.5-14.5); WHITE BLOOD COUNT 17.8 X10'3 (4.5-11.0)
[2021-09-17 07:28] LABS: ALBUMIN 2.2 G/DL (3.4-5.0); ANION GAP 7 (8-16); BLOOD UREA NITROGEN 23 MG/DL (7-18); BUN/CREATININE RATIO 27.1 (6.6-38.0); CALCIUM 9.6 MG/DL (8.5-10.1); CHLORIDE 97 MMOL/L (99-107); CREATININE 0.85 MG/DL (0.40-0.90); GLUCOSE 210 MG/DL (70-104); POTASSIUM 3.6 MMOL/L (3.5-5.1); SODIUM 128 MMOL/L (135-145); TOTAL CARBON DIOXIDE 24.3 MMOL/L (24-32); eGFR 68 ML/MIN
[2021-09-17] MEDS: lactose-reduced food (Ensure Enlive) - 237ml bottle PO SCH ×3 (08:00→18:00)
[2021-09-17] MEDS: docusate sod 100mg capsule PO SCH ×2 (08:00→20:00)
[2021-09-17] MEDS: ADDERALL 30 MG PO SCH (08:00)
[2021-09-17] MEDS: ALPRAZolam 0.5mg tablet PO SCH ×4 (08:00→20:42)
[2021-09-17] MEDS: fenofibrate 145mg tablet PO SCH ×3 (08:00→14:31)
[2021-09-17] MEDS: K and/or MAG REPLACEMENT MC SCH ×2 (08:00→20:00)
[2021-09-17] MEDS: insulin Lispro (HumaLOG) vial - multi-dose SQ SCH ×3 (08:45→19:00)
[2021-09-17] MEDS: ondansetron/PF 4mg/2ml inj IV PRN (08:47)
[2021-09-17] MEDS: methylPREDNISolone sod succ 125mg/2ml vial IV SCH ×2 (08:47→17:42)
[2021-09-17] MEDS: CefTRIAXone/D5W-Rocephin 1gm 50 ML IV SCH (08:49)
[2021-09-17] MEDS: enoxaparin 40mg/0.4ml syringe SUBCUT SCH (08:50)
[2021-09-17 10:00] VITALS: BP 164/76
[2021-09-17 10:12] LABS: D-DIMER 2.98 MG/L FEU (0-0.50)
[2021-09-17] MEDS ORDERED: dextroamphetamine/amphetamine 5mg tablet PO SCH (13:30)
[2021-09-17 14:00] VITALS: BP 158/81
[2021-09-17] MEDS: dextroamphetamine/amphetamine 5mg tablet PO SCH (14:00)
[2021-09-17] MEDS: duloxetine 30mg CAPSULE.DR PO SCH (14:18)
[2021-09-17] MEDS: oxyCODONE SR 10mg (sust. release) tab PO SCH ×2 (14:19→22:05)
[2021-09-17] MEDS: lactobacillus rhamnosus 10,000 MMU CELLS/CAPSULE PO SCH ×2 (14:19→20:42)
[2021-09-17] MEDS: cholecalciferol (vitamin D3) 1,000 unit (25mcg) tablet PO SCH (14:20)
[2021-09-17] MEDS: HYDROchlorothiazide 25mg tablet PO SCH (14:20)
--- NOTE | 2021-09-17 14:32 | NUR ---
AM meds given late secondary to n/v
[2021-09-17 18:00] VITALS: BP 155/84
[2021-09-17] MEDS: insulin glargine (Lantus) pen - multi-dose SQ SCH (21:10)
[2021-09-17 22:00] VITALS: BP 144/79
[2021-09-18] MEDS: methylPREDNISolone sod succ 125mg/2ml vial IV SCH ×3 (00:30→16:31)
--- NOTE | 2021-09-18 06:28 | NUR ---
Patient in room ORTHO 4010. I have received report from Eleonora RN and had the opportunity to ask questions and assume patient care.
[2021-09-18 06:38] VITALS: BP 162/75
[2021-09-18 06:49] LABS: BASOPHILS % (AUTO) 0.2 % (0-1); EOSINOPHILS % (AUTO) 0 % (0-6); HEMATOCRIT 45.7 % (35.0-45.0); HEMOGLOBIN 15.5 g/dl (12.0-16.0); LYMPHOCYTES % (AUTO) 5.1 % (21-51); MEAN CORPUSCULAR HEMOGLOBIN 31.5 PG (27.0-31.0); MEAN CORPUSCULAR HGB CONC 33.9 g/dL (33.0-36.5); MEAN CORPUSCULAR VOLUME 92.9 FL (78-98); MEAN PLATELET VOLUME 8.3 FL (7.4-10.4); MONOCYTES # (AUTO) 0.3 X10'3 (0-0.9); MONOCYTES % (AUTO) 1.6 % (2-12); NEUTROPHILS # (AUTO) 17.6 X10'3 (1.8-7.7); NEUTROPHILS % (AUTO) 93.1 % (42-75); PLATELET COUNT 520 X10'3 (140-440); RED BLOOD COUNT 4.92 X10'6 (4.20-5.60); RED CELL DISTRIBUTION WIDTH 13.5 % (11.5-14.5)
[2021-09-18 06:55] LABS: D-DIMER 0.94 MG/L FEU (0-0.50)
[2021-09-18 07:07] LABS: ALBUMIN 2.3 G/DL (3.4-5.0); ANION GAP 9 (8-16); BLOOD UREA NITROGEN 23 MG/DL (7-18); BUN/CREATININE RATIO 28.4 (6.6-38.0); C-REACTIVE PROTEIN 4.85 MG/DL (0.0-0.5); CALCIUM 9.6 MG/DL (8.5-10.1); CHLORIDE 99 MMOL/L (99-107); CREATININE 0.81 MG/DL (0.40-0.90); GLUCOSE 207 MG/DL (70-104); POTASSIUM 3.9 MMOL/L (3.5-5.1); SODIUM 134 MMOL/L (135-145); eGFR 72 ML/MIN
[2021-09-18] MEDS: lactose-reduced food (Ensure Enlive) - 237ml bottle PO SCH ×3 (08:00→18:30)
[2021-09-18] MEDS: dextroamphetamine/amphetamine 5mg tablet PO SCH ×2 (08:00→13:41)
[2021-09-18] MEDS: K and/or MAG REPLACEMENT MC SCH ×2 (08:00→20:00)
[2021-09-18] MEDS: duloxetine 30mg CAPSULE.DR PO SCH (08:03)
[2021-09-18] MEDS: docusate sod 100mg capsule PO SCH ×2 (08:03→20:48)
[2021-09-18] MEDS: ALPRAZolam 0.5mg tablet PO SCH ×4 (08:03→20:48)
[2021-09-18] MEDS: lactobacillus rhamnosus 10,000 MMU CELLS/CAPSULE PO SCH ×2 (08:03→20:48)
[2021-09-18] MEDS: oxyCODONE SR 10mg (sust. release) tab PO SCH ×2 (08:04→20:48)
[2021-09-18] MEDS: fenofibrate 145mg tablet PO SCH (08:04)
[2021-09-18] MEDS: cholecalciferol (vitamin D3) 1,000 unit (25mcg) tablet PO SCH (08:05)
[2021-09-18] MEDS: enoxaparin 40mg/0.4ml syringe SUBCUT SCH (08:05)
[2021-09-18] MEDS: HYDROchlorothiazide 25mg tablet PO SCH (08:05)
--- NOTE | 2021-09-18 08:49 | NUR ---
Patient alert and oriented x 3 this AM, compliant with keeping 02 on, restraints removed at 0830
[2021-09-18] MEDS: insulin Lispro (HumaLOG) vial - multi-dose SQ SCH ×3 (08:57→18:55)
[2021-09-18 11:02] VITALS: BP 155/87
[2021-09-18] MEDS: HYDROcodone/acetaminophen 10/325mg tab PO PRN (14:37)
[2021-09-18 14:39] VITALS: BP 142/85
[2021-09-18] MEDS: ondansetron/PF 4mg/2ml inj IV PRN (17:07)
--- NOTE | 2021-09-18 18:19 | NUR ---
Problems reprioritized. Patient report given, questions answered & plan of care reviewed with Eleonora CASTELLANOS.
[2021-09-18 18:30] VITALS: BP 142/79
[2021-09-18] MEDS: insulin glargine (Lantus) pen - multi-dose SQ SCH (20:51)
[2021-09-18 22:00] VITALS: BP 157/83
[2021-09-19] MEDS: methylPREDNISolone sod succ 125mg/2ml vial IV SCH ×3 (00:12→16:16)
[2021-09-19 02:00] VITALS: BP 158/92
[2021-09-19] MEDS: HYDROcodone/acetaminophen 10/325mg tab PO PRN (02:16)
[2021-09-19 06:00] VITALS: BP 152/81
[2021-09-19 07:00] LABS: BASOPHILS # (AUTO) 0.1 X10'3 (0-0.2); BASOPHILS % (AUTO) 0.2 % (0-1); EOSINOPHILS % (AUTO) 0 % (0-6); HEMATOCRIT 47.9 % (35.0-45.0); HEMOGLOBIN 16.6 g/dl (12.0-16.0); LYMPHOCYTES % (AUTO) 4.4 % (21-51); MEAN CORPUSCULAR HEMOGLOBIN 31.5 PG (27.0-31.0); MEAN CORPUSCULAR HGB CONC 34.6 g/dL (33.0-36.5); MEAN CORPUSCULAR VOLUME 90.9 FL (78-98); MEAN PLATELET VOLUME 8.3 FL (7.4-10.4); MONOCYTES # (AUTO) 0.5 X10'3 (0-0.9); MONOCYTES % (AUTO) 2.4 % (2-12); NEUTROPHILS # (AUTO) 21.4 X10'3 (1.8-7.7); PLATELET COUNT 620 X10'3 (140-440); RED BLOOD COUNT 5.27 X10'6 (4.20-5.60); RED CELL DISTRIBUTION WIDTH 13.1 % (11.5-14.5); WHITE BLOOD COUNT 23.1 X10'3 (4.5-11.0)
[2021-09-19] MEDS ORDERED: bisacodyl 10mg suppository rectal RC PRN (07:15)
[2021-09-19 07:25] LABS: D-DIMER 0.67 MG/L FEU (0-0.50)
[2021-09-19 07:28] LABS: ALBUMIN 2.5 G/DL (3.4-5.0); ANION GAP 11 (8-16); BLOOD UREA NITROGEN 25 MG/DL (7-18); BUN/CREATININE RATIO 29.8 (6.6-38.0); C-REACTIVE PROTEIN 2.01 MG/DL (0.0-0.5); CALCIUM 10.2 MG/DL (8.5-10.1); CHLORIDE 97 MMOL/L (99-107); CREATININE 0.84 MG/DL (0.40-0.90); GLUCOSE 195 MG/DL (70-104); POTASSIUM 4.6 MMOL/L (3.5-5.1); SODIUM 134 MMOL/L (135-145); TOTAL CARBON DIOXIDE 25.9 MMOL/L (24-32); eGFR 69 ML/MIN
[2021-09-19] MEDS: oxyCODONE SR 10mg (sust. release) tab PO SCH ×2 (08:00→21:08)
[2021-09-19] MEDS: lactose-reduced food (Ensure Enlive) - 237ml bottle PO SCH ×3 (08:00→18:00)
[2021-09-19] MEDS: K and/or MAG REPLACEMENT MC SCH ×2 (08:00→20:00)
[2021-09-19 10:00] VITALS: BP 160/83
[2021-09-19] MEDS: ALPRAZolam 0.5mg tablet PO SCH ×4 (10:00→21:07)
[2021-09-19] MEDS: cholecalciferol (vitamin D3) 1,000 unit (25mcg) tablet PO SCH (10:07)
[2021-09-19] MEDS: HYDROchlorothiazide 25mg tablet PO SCH (10:07)
[2021-09-19] MEDS: duloxetine 30mg CAPSULE.DR PO SCH (10:09)
[2021-09-19] MEDS: fenofibrate 145mg tablet PO SCH (10:09)
[2021-09-19] MEDS: lactobacillus rhamnosus 10,000 MMU CELLS/CAPSULE PO SCH ×2 (10:10→21:08)
[2021-09-19] MEDS: enoxaparin 40mg/0.4ml syringe SUBCUT SCH (10:10)
[2021-09-19] MEDS: dextroamphetamine/amphetamine 5mg tablet PO SCH ×2 (10:10→14:00)
--- NOTE | 2021-09-19 12:14 | NUR ---
PAGER ID: [phone] MESSAGE: [phone] Salvador Elizabeth concerned about a bowel obstruction. very minimal bowel sounds. FLORIN [phone]
[2021-09-19] MEDS ORDERED: metoclopramide 5 mg/ml inj IV PRN (12:20)
[2021-09-19] MEDS: docusate sod 100mg capsule PO SCH ×2 (12:36→21:08)
[2021-09-19] MEDS: metoclopramide 5 mg/ml inj IV SCH ×2 (12:37→21:07)
[2021-09-19] MEDS: insulin Lispro (HumaLOG) vial - multi-dose SQ SCH ×2 (14:37→22:42)
--- NOTE | 2021-09-19 15:43 | NUR ---
F/u 09/19: Pt PO remains poor 0-25% meals 9 days w/ 0-25% first Ensure Enlive ONS not meeting needs. Down to 15L high flow oxygen down from 60L 09/16 per EMR. Noted on dextroamphetamine which can suppress appetite. RD d/w RN regarding nutrition support needs; would benefit from NG for nutrition at this time given prolonged poor intake if MD agreeable. RN reports current concern for possible bowel obstruction w/ very limited bowel sounds pt started on reglan Q6H per MD. Moderate BM 09/17 following initial 8 days constipation w/ no BM following receiving routine bowel care per EMR. EN and TPN recs below pending further GI information. Given poor PO intake 9 days w/ mild weakness pt meets minimum non-severe malnutrition criteria; MD notified. Will continue to monitor. Rec: 1. liberalize to regular given poor PO trends; encourage PO 2. Ensure Enlive TIDWM; encourage PO 3. Given poor PO intake 9 days would benefit from NG nutrition. IF TF Glucerna 1.2 at 60ml/hr goal 4. IF true bowel obstruction; would benefit from TPN for sole nutrition needs. IF TPN; 2:1 Clinimix E 5/20 at 75ml/hr goal using separate 100ml 20% intralipids to run at 8.33ml/hr for 12 hours each day. In total; would provide 1800ml volume/day, 90g AA, 360g DEX (2.75mg/kg/min), and 1784kcals. 5. bowel care per rx; routine reglan Q6H per MD 6. weekly wts Addendum: 09/19/21 at [address] Amended: Links added.
--- NOTE | 2021-09-19 16:09 | NUR ---
PAGER ID: [phone] MESSAGE: [id number] UA? [phone] FLORIN
[2021-09-19] MEDS: diltiazem CD 180mg cap (once-daily) PO SCH (17:35)
[2021-09-19 17:50] LABS: CLARITY,URINE CLOUDY (Clear); COLOR,URINE YELLOW (Yellow); GLUCOSE, URINE NEGATIVE (Neg); KETONES,URINE NEGATIVE (Neg); LEUKOCYTE ESTERASE ,URINE NEGATIVE (Neg); NITRITES, URINE NEGATIVE (Neg); OCCULT BLOOD,URINE Large (Neg); PH,URINE 6.5 (4.8-8.0); PROTEIN,URINE 30 mg/dl (Neg); UA COLLECTION TYPE NON-SPECIFIED; UROBILINOGEN,URINE 0.2 E.U/dL (0.2-1.0)
[2021-09-19 18:00] VITALS: BP 152/73
[2021-09-19 18:17] LABS: MUCUS STRANDS FEW /LPF (Neg); SQUAMOUS EPITHELIAL CELL,UR FEW /LPF (FEW)
[2021-09-19 18:18] LABS: BACTERIA,URINE 1+ /HPF (Neg); RBC,URINE 50-100 /HPF (0-2); WBC,URINE 0-4 /HPF (0-4)
[2021-09-19 22:00] VITALS: BP 142/82
[2021-09-19] MEDS: insulin glargine (Lantus) pen - multi-dose SQ SCH (22:38)
[2021-09-20] MEDS: methylPREDNISolone sod succ 125mg/2ml vial IV SCH ×2 (01:03→07:49)
[2021-09-20] MEDS: HYDROcodone/acetaminophen 10/325mg tab PO PRN (01:04)
[2021-09-20 02:00] VITALS: BP 129/66
[2021-09-20] MEDS: metoclopramide 5 mg/ml inj IV SCH ×4 (02:00→20:14)
[2021-09-20 06:00] VITALS: BP 150/89
--- NOTE | 2021-09-20 07:00 | NUR ---
Patient in room ORTHO 4010. I have received report from Prashant CASTELLANOS Traveler and had the opportunity to ask questions and assume patient care.
[2021-09-20 07:06] LABS: BASOPHILS % (AUTO) 0.2 % (0-1); EOSINOPHILS % (AUTO) 0.1 % (0-6); HEMATOCRIT 44.9 % (35.0-45.0); HEMOGLOBIN 15.9 g/dl (12.0-16.0); LYMPHOCYTES # (AUTO) 0.7 X10'3 (1.1-4.8); LYMPHOCYTES % (AUTO) 4.6 % (21-51); MEAN CORPUSCULAR HEMOGLOBIN 31.7 PG (27.0-31.0); MEAN CORPUSCULAR HGB CONC 35.4 g/dL (33.0-36.5); MEAN CORPUSCULAR VOLUME 89.7 FL (78-98); MEAN PLATELET VOLUME 8.8 FL (7.4-10.4); MONOCYTES # (AUTO) 0.4 X10'3 (0-0.9); MONOCYTES % (AUTO) 2.4 % (2-12); NEUTROPHILS # (AUTO) 14.6 X10'3 (1.8-7.7); NEUTROPHILS % (AUTO) 92.7 % (42-75); PLATELET COUNT 485 X10'3 (140-440); RED BLOOD COUNT 5.01 X10'6 (4.20-5.60); RED CELL DISTRIBUTION WIDTH 13.5 % (11.5-14.5); WHITE BLOOD COUNT 15.7 X10'3 (4.5-11.0)
[2021-09-20 07:07] LABS: D-DIMER 0.58 MG/L FEU (0-0.50)
[2021-09-20 07:17] LABS: ALBUMIN 2.3 G/DL (3.4-5.0); ANION GAP 11 (8-16); BLOOD UREA NITROGEN 26 MG/DL (7-18); BUN/CREATININE RATIO 32.9 (6.6-38.0); C-REACTIVE PROTEIN 1.51 MG/DL (0.0-0.5); CALCIUM 9.6 MG/DL (8.5-10.1); CHLORIDE 97 MMOL/L (99-107); CREATININE 0.79 MG/DL (0.40-0.90); GLUCOSE 220 MG/DL (70-104); POTASSIUM 4.4 MMOL/L (3.5-5.1); SODIUM 133 MMOL/L (135-145); TOTAL CARBON DIOXIDE 24.9 MMOL/L (24-32); eGFR 74 ML/MIN
[2021-09-20] MEDS: fenofibrate 145mg tablet PO SCH (07:47)
[2021-09-20] MEDS: HYDROchlorothiazide 25mg tablet PO SCH (07:47)
[2021-09-20] MEDS: ALPRAZolam 0.5mg tablet PO SCH ×4 (07:47→23:12)
[2021-09-20] MEDS: lactobacillus rhamnosus 10,000 MMU CELLS/CAPSULE PO SCH ×2 (07:47→20:14)
[2021-09-20] MEDS: duloxetine 30mg CAPSULE.DR PO SCH (07:47)
[2021-09-20] MEDS: diltiazem CD 180mg cap (once-daily) PO SCH (07:47)
[2021-09-20] MEDS: oxyCODONE SR 10mg (sust. release) tab PO SCH ×2 (07:47→20:14)
[2021-09-20] MEDS: docusate sod 100mg capsule PO SCH ×2 (07:47→20:00)
[2021-09-20] MEDS: enoxaparin 40mg/0.4ml syringe SUBCUT SCH (07:48)
[2021-09-20] MEDS: cholecalciferol (vitamin D3) 1,000 unit (25mcg) tablet PO SCH (07:48)
[2021-09-20] MEDS: lactose-reduced food (Ensure Enlive) - 237ml bottle PO SCH ×3 (07:57→17:31)
[2021-09-20] MEDS: K and/or MAG REPLACEMENT MC SCH ×2 (08:00→20:00)
[2021-09-20] MEDS: dextroamphetamine/amphetamine 5mg tablet PO SCH ×2 (08:00→13:14)
[2021-09-20] MEDS: insulin Lispro (HumaLOG) vial - multi-dose SQ SCH ×4 (09:10→21:30)
[2021-09-20 10:00] VITALS: BP 164/82
--- NOTE | 2021-09-20 12:56 | NUR ---
received acall from Wizer, Pt's heart on the 170's. Pt is sitting in recliner, no distress and states she feels fine. Pt eating ice cream. Pt given her schedule Xanax and being monitor closely for any changes or distress.
--- NOTE | 2021-09-20 13:27 | NUR ---
PT GIVEN HER MEDICATIONS, PUT BACK IN BED, STATES SHE IS NOT IN ANY DISTRESS. PT BACK TO SR FROM ST AND ON THE 140'S. SPOKE TO JAMES PAREKH, PT IS BACK TO SR.
--- NOTE | 2021-09-20 13:32 | NUR ---
PT TAUGHT HOW TO DO IS, FLUTTER VALVE, PURSE BREATHING, PT REFUSING TEACHING, SAYS OK BUT WON'T DO ANY OF THE BREATHING TEACHINGS. SHE IS COMFORTABLE AT THIS TIME.
--- NOTE | 2021-09-20 14:03 | NUR ---
Reassessment: TC to RN who reports pt appears to be doing better today and is a little more alert. Noted pt documented with ~75% PO intake of breakfast this morning which is a significant improvement in PO intake, and per RN pt with 50% PO intake of protein at lunch this afternoon. Per RN pt did not consume ONS today and was accepting of ice cream. D/w dietary to send ice cream BIDLD to optimize PO intake. D/w RN recommendation for diet liberalization to regular and supplemental nutrition with MD approval IF current increasing trends in PO intake does not continue. LBM 09/18 however per RN pt with two BMs 09/19 and with good bowel sounds. Will continue to follow closely. Recommendations: 1. Liberalize to regular diet given poor PO trends 2. Ensure Enlive TIDWM; ice cream BIDLD 3. Encourage PO intake of meals/ONS 4. Given poor PO intake 9 days would benefit from NG nutrition. IF TF Glucerna 1.2 at 60ml/hr goal 5. IF pt with bowel obstruction; would benefit from TPN for sole nutrition needs. IF TPN; 2:1 Clinimix-E 5/20 at 75ml/hr goal using separate 100ml 20% intralipids to run at 8.33ml/hr for 12 hours each day. In total; would provide 1800ml volume/day, 90g AA, 360g DEX (2.75mg/kg/min), and 1784kcals. 6. Routine bowel care; routine Reglan Q6H per MD 7. Weekly scaled weights Addendum: 09/20/21 at [address] Amended: Links added.
[2021-09-20 15:19] VITALS: BP 123/58
[2021-09-20] MEDS: methylPREDNISolone sod succ/PF 40mg inj. IV SCH ×2 (15:46→23:12)
[2021-09-20 18:00] VITALS: BP 146/81
--- NOTE | 2021-09-20 18:15 | NUR ---
Patient in room ORTHO 4010. I have received report from JASMIN Aguirre and had the opportunity to ask questions and assume patient care.
--- NOTE | 2021-09-20 18:22 | NUR ---
Problems reprioritized. Patient report given, questions answered & plan of care reviewed with Vandana CASTELLANOS.
[2021-09-20] MEDS: insulin glargine (Lantus) pen - multi-dose SQ SCH ×2 (21:31→21:40)
[2021-09-20 22:00] VITALS: BP 140/89
[2021-09-21 02:00] VITALS: BP 146/78
[2021-09-21] MEDS: metoclopramide 5 mg/ml inj IV SCH ×4 (02:22→19:52)
[2021-09-21] MEDS: guaiFENesin 200 MG/10 ML oral syrup UD cup PO PRN ×2 (02:35→21:54)
--- NOTE | 2021-09-21 06:26 | NUR ---
Problems reprioritized. Patient report given, questions answered & plan of care reviewed with JASMIN Rosales.
--- NOTE | 2021-09-21 06:32 | NUR ---
Patient in room ORTHO 4010. I have received report from Vandana CASTELLANOS and had the opportunity to ask questions and assume patient care.
[2021-09-21 07:01] VITALS: BP 115/50
[2021-09-21 07:35] LABS: ALANINE AMINOTRANSFERASE 21 U/L (12-78); ALBUMIN 2.4 G/DL (3.4-5.0); ALBUMIN/GLOBULIN RATIO 0.5 (1.1-1.5); ALKALINE PHOSPHATASE 70 IU/L (46-116); ANION GAP 6 (8-16); ASPARTATE AMINO TRANSFERASE 13 U/L (10-37); BILIRUBIN,TOTAL 0.4 MG/DL (0.1-1.0); BLOOD UREA NITROGEN 31 MG/DL (7-18); BUN/CREATININE RATIO 32.6 (6.6-38.0); C-REACTIVE PROTEIN 0.54 MG/DL (0.0-0.5); CALCIUM 9.6 MG/DL (8.5-10.1); CHLORIDE 98 MMOL/L (99-107); CREATININE 0.95 MG/DL (0.40-0.90); GLUCOSE 228 MG/DL (70-104); MAGNESIUM 2.3 MG/DL (1.5-2.4); POTASSIUM 4.1 MMOL/L (3.5-5.1); SODIUM 132 MMOL/L (135-145); TOTAL CARBON DIOXIDE 27.8 MMOL/L (24-32); TOTAL PROTEIN 7.6 G/DL (6.4-8.2); eGFR 60 ML/MIN
[2021-09-21 07:39] LABS: D-DIMER 0.63 MG/L FEU (0-0.50)
[2021-09-21] MEDS: K and/or MAG REPLACEMENT MC SCH ×2 (08:00→19:34)
[2021-09-21] MEDS: lactose-reduced food (Ensure Enlive) - 237ml bottle PO SCH ×3 (08:00→18:05)
[2021-09-21] MEDS: methylPREDNISolone sod succ/PF 40mg inj. IV SCH ×2 (08:19→16:52)
[2021-09-21] MEDS: diltiazem CD 180mg cap (once-daily) PO SCH (08:19)
[2021-09-21] MEDS: docusate sod 100mg capsule PO SCH ×2 (08:19→19:53)
[2021-09-21] MEDS: fenofibrate 145mg tablet PO SCH (08:19)
[2021-09-21] MEDS: cholecalciferol (vitamin D3) 1,000 unit (25mcg) tablet PO SCH (08:19)
[2021-09-21] MEDS: duloxetine 30mg CAPSULE.DR PO SCH (08:20)
[2021-09-21] MEDS: lactobacillus rhamnosus 10,000 MMU CELLS/CAPSULE PO SCH ×2 (08:20→19:53)
[2021-09-21] MEDS: ALPRAZolam 0.5mg tablet PO SCH ×4 (08:20→21:40)
[2021-09-21] MEDS: dextroamphetamine/amphetamine 5mg tablet PO SCH ×2 (08:20→13:22)
[2021-09-21] MEDS: HYDROchlorothiazide 25mg tablet PO SCH (08:20)
[2021-09-21] MEDS: oxyCODONE SR 10mg (sust. release) tab PO SCH ×2 (08:21→19:53)
[2021-09-21] MEDS: insulin Lispro (HumaLOG) vial - multi-dose SQ SCH ×3 (09:41→19:20)
[2021-09-21 10:00] VITALS: BP 123/76
[2021-09-21 13:41] LABS: BASOPHILS % (AUTO) 0.1 % (0-1); EOSINOPHILS % (AUTO) 0 % (0-6); HEMATOCRIT 43.5 % (35.0-45.0); HEMOGLOBIN 14.9 g/dl (12.0-16.0); LYMPHOCYTES # (AUTO) 0.5 X10'3 (1.1-4.8); LYMPHOCYTES % (AUTO) 3.7 % (21-51); MEAN CORPUSCULAR HEMOGLOBIN 31.4 PG (27.0-31.0); MEAN CORPUSCULAR HGB CONC 34.3 g/dL (33.0-36.5); MEAN CORPUSCULAR VOLUME 91.4 FL (78-98); MONOCYTES # (AUTO) 0.6 X10'3 (0-0.9); MONOCYTES % (AUTO) 4.6 % (2-12); NEUTROPHILS # (AUTO) 12.1 X10'3 (1.8-7.7); NEUTROPHILS % (AUTO) 91.6 % (42-75); PLATELET COUNT 458 X10'3 (140-440); RED BLOOD COUNT 4.75 X10'6 (4.20-5.60); RED CELL DISTRIBUTION WIDTH 13.4 % (11.5-14.5); WHITE BLOOD COUNT 13.2 X10'3 (4.5-11.0)
[2021-09-21 13:47] LABS: D-DIMER 0.49 MG/L FEU (0-0.50)
[2021-09-21 13:51] LABS: ALANINE AMINOTRANSFERASE 21 U/L (12-78); ALBUMIN 2.3 G/DL (3.4-5.0); ALBUMIN/GLOBULIN RATIO 0.5 (1.1-1.5); ALKALINE PHOSPHATASE 67 IU/L (46-116); ANION GAP 8 (8-16); ASPARTATE AMINO TRANSFERASE 18 U/L (10-37); BILIRUBIN,TOTAL 0.4 MG/DL (0.1-1.0); BLOOD UREA NITROGEN 32 MG/DL (7-18); BUN/CREATININE RATIO 32.3 (6.6-38.0); C-REACTIVE PROTEIN 0.39 MG/DL (0.0-0.5); CALCIUM 9.8 MG/DL (8.5-10.1); CHLORIDE 95 MMOL/L (99-107); CREATININE 0.99 MG/DL (0.40-0.90); GLUCOSE 249 MG/DL (70-104); LACTATE DEHYDROGENASE 364 U/L (81-234); POTASSIUM 4.1 MMOL/L (3.5-5.1); SODIUM 130 MMOL/L (135-145); TOTAL CARBON DIOXIDE 26.8 MMOL/L (24-32); TOTAL PROTEIN 7.4 G/DL (6.4-8.2); eGFR 57 ML/MIN
[2021-09-21 14:00] VITALS: BP 111/66
--- NOTE | 2021-09-21 14:08 | NUR ---
PAGER ID: [phone] MESSAGE: Carly [phone] re: Shoshana Franco. Pt's sodium today is 130.
[2021-09-21] MEDS: sodium chloride 1gm tablet PO SCH ×2 (16:58→21:40)
[2021-09-21 18:00] VITALS: BP 140/79
--- NOTE | 2021-09-21 18:20 | NUR ---
Patient in room ORTHO 4010. I have received report from JASMIN Carroll and had the opportunity to ask questions and assume patient care.
--- NOTE | 2021-09-21 18:30 | NUR ---
Problems reprioritized. Patient report given, questions answered & plan of care reviewed with Vandana CASTELLANOS.
[2021-09-21] MEDS: enoxaparin 40mg/0.4ml syringe SUBCUT SCH (19:52)
[2021-09-21] MEDS: insulin glargine (Lantus) pen - multi-dose SQ SCH (21:41)
[2021-09-21 22:00] VITALS: BP 129/70
[2021-09-22] VITALS (7 sets, daily range): BP systolic 101–150; BP diastolic 56–66
[2021-09-22] MEDS: methylPREDNISolone sod succ/PF 40mg inj. IV SCH ×3 (00:12→16:43)
[2021-09-22] MEDS ORDERED: diltiazem 30mg tablet PO ONE (00:50)
[2021-09-22] MEDS: metoclopramide 5 mg/ml inj IV SCH ×4 (02:00→20:41)
--- NOTE | 2021-09-22 06:18 | NUR ---
Problems reprioritized. Patient report given, questions answered & plan of care reviewed with JASMIN Carroll.
--- NOTE | 2021-09-22 06:26 | NUR ---
Patient in room ORTHO 4010. I have received report from Vandana CASTELLANOS and had the opportunity to ask questions and assume patient care.
[2021-09-22] MEDS: K and/or MAG REPLACEMENT MC SCH ×2 (08:00→20:00)
[2021-09-22] MEDS: ALPRAZolam 0.5mg tablet PO SCH ×4 (08:00→21:58)
[2021-09-22] MEDS: diltiazem CD 180mg cap (once-daily) PO SCH (08:44)
[2021-09-22] MEDS: lactobacillus rhamnosus 10,000 MMU CELLS/CAPSULE PO SCH ×2 (08:44→20:41)
[2021-09-22] MEDS: cholecalciferol (vitamin D3) 1,000 unit (25mcg) tablet PO SCH (08:44)
[2021-09-22] MEDS: fenofibrate 145mg tablet PO SCH (08:45)
[2021-09-22] MEDS: sodium chloride 1gm tablet PO SCH ×4 (08:45→20:42)
[2021-09-22] MEDS: docusate sod 100mg capsule PO SCH ×2 (08:45→20:41)
[2021-09-22] MEDS: dextroamphetamine/amphetamine 5mg tablet PO SCH ×2 (08:45→14:02)
[2021-09-22] MEDS: HYDROchlorothiazide 25mg tablet PO SCH (08:45)
[2021-09-22] MEDS: duloxetine 30mg CAPSULE.DR PO SCH (08:45)
[2021-09-22] MEDS: enoxaparin 40mg/0.4ml syringe SUBCUT SCH ×2 (08:46→20:42)
[2021-09-22] MEDS: lactose-reduced food (Ensure Enlive) - 237ml bottle PO SCH ×3 (08:46→17:45)
[2021-09-22 08:49] LABS: ALANINE AMINOTRANSFERASE 28 U/L (12-78); ALBUMIN 2.3 G/DL (3.4-5.0); ALBUMIN/GLOBULIN RATIO 0.5 (1.1-1.5); ALKALINE PHOSPHATASE 58 IU/L (46-116); ANION GAP 9 (8-16); ASPARTATE AMINO TRANSFERASE 17 U/L (10-37); BILIRUBIN,TOTAL 0.5 MG/DL (0.1-1.0); BLOOD UREA NITROGEN 29 MG/DL (7-18); BUN/CREATININE RATIO 34.9 (6.6-38.0); CALCIUM 9.3 MG/DL (8.5-10.1); CHLORIDE 99 MMOL/L (99-107); CREATININE 0.83 MG/DL (0.40-0.90); GLUCOSE 160 MG/DL (70-104); MAGNESIUM 2.1 MG/DL (1.5-2.4); SODIUM 136 MMOL/L (135-145); TOTAL CARBON DIOXIDE 28.3 MMOL/L (24-32); TOTAL PROTEIN 6.9 G/DL (6.4-8.2); eGFR 70 ML/MIN
[2021-09-22] MEDS: insulin Lispro (HumaLOG) vial - multi-dose SQ SCH ×3 (10:24→19:12)
[2021-09-22] MEDS: oxyCODONE SR 10mg (sust. release) tab PO SCH ×2 (12:37→20:41)
--- NOTE | 2021-09-22 18:32 | NUR ---
Patient in room ORTHO 4010. I have received report from JASMIN Carroll and had the opportunity to ask questions and assume patient care.
[2021-09-22] MEDS: guaiFENesin 200 MG/10 ML oral syrup UD cup PO PRN (20:47)
[2021-09-22] MEDS: insulin glargine (Lantus) pen - multi-dose SQ SCH (22:44)
[2021-09-23] MEDS: methylPREDNISolone sod succ/PF 40mg inj. IV SCH ×3 (00:44→17:14)
[2021-09-23] MEDS: metoclopramide 5 mg/ml inj IV SCH ×4 (01:07→21:25)
[2021-09-23 02:00] VITALS: BP 134/65
[2021-09-23] MEDS: guaiFENesin 200 MG/10 ML oral syrup UD cup PO PRN ×3 (03:11→21:33)
[2021-09-23 06:00] VITALS: BP 130/56
--- NOTE | 2021-09-23 06:20 | NUR ---
Problems reprioritized. Patient report given, questions answered & plan of care reviewed with JASMIN Manzo.
[2021-09-23 08:00] LABS: ALANINE AMINOTRANSFERASE 29 U/L (12-78); ALBUMIN 2.3 G/DL (3.4-5.0); ALBUMIN/GLOBULIN RATIO 0.5 (1.1-1.5); ALKALINE PHOSPHATASE 62 IU/L (46-116); ANION GAP 4 (8-16); ASPARTATE AMINO TRANSFERASE 17 U/L (10-37); BILIRUBIN,TOTAL 0.3 MG/DL (0.1-1.0); BLOOD UREA NITROGEN 32 MG/DL (7-18); BUN/CREATININE RATIO 40.5 (6.6-38.0); CALCIUM 9.5 MG/DL (8.5-10.1); CHLORIDE 102 MMOL/L (99-107); CREATININE 0.79 MG/DL (0.40-0.90); GLUCOSE 158 MG/DL (70-104); MAGNESIUM 2.2 MG/DL (1.5-2.4); POTASSIUM 4.2 MMOL/L (3.5-5.1); SODIUM 135 MMOL/L (135-145); TOTAL CARBON DIOXIDE 28.7 MMOL/L (24-32); TOTAL PROTEIN 6.6 G/DL (6.4-8.2); eGFR 74 ML/MIN
[2021-09-23] MEDS: lactose-reduced food (Ensure Enlive) - 237ml bottle PO SCH ×3 (08:00→18:00)
[2021-09-23] MEDS: K and/or MAG REPLACEMENT MC SCH ×2 (08:00→20:00)
[2021-09-23] MEDS: ALPRAZolam 0.5mg tablet PO SCH ×4 (08:00→21:25)
[2021-09-23] MEDS: sodium chloride 1gm tablet PO SCH ×4 (08:00→21:25)
[2021-09-23] MEDS: oxyCODONE SR 10mg (sust. release) tab PO SCH ×2 (08:00→21:25)
[2021-09-23 09:00] VITALS: BP 137/63
[2021-09-23] MEDS: docusate sod 100mg capsule PO SCH ×2 (11:22→20:00)
[2021-09-23] MEDS: lactobacillus rhamnosus 10,000 MMU CELLS/CAPSULE PO SCH ×2 (11:22→21:25)
[2021-09-23] MEDS: duloxetine 30mg CAPSULE.DR PO SCH (11:22)
[2021-09-23] MEDS: diltiazem CD 180mg cap (once-daily) PO SCH (11:22)
[2021-09-23] MEDS: fenofibrate 145mg tablet PO SCH (11:23)
[2021-09-23] MEDS: HYDROchlorothiazide 25mg tablet PO SCH (11:23)
[2021-09-23] MEDS: dextroamphetamine/amphetamine 5mg tablet PO SCH ×2 (11:23→14:00)
[2021-09-23] MEDS: cholecalciferol (vitamin D3) 1,000 unit (25mcg) tablet PO SCH (11:24)
[2021-09-23] MEDS: enoxaparin 40mg/0.4ml syringe SUBCUT SCH ×2 (11:24→21:25)
[2021-09-23] MEDS: insulin Lispro (HumaLOG) vial - multi-dose SQ SCH ×2 (13:58→18:56)
--- NOTE | 2021-09-23 18:38 | NUR ---
Report to Macey Tobias RN
[2021-09-23] MEDS: insulin glargine (Lantus) pen - multi-dose SQ SCH (21:23)
[2021-09-23 22:00] VITALS: BP 134/41
[2021-09-24 02:00] VITALS: BP 131/57
[2021-09-24] MEDS: metoclopramide 5 mg/ml inj IV SCH ×4 (02:00→21:33)
[2021-09-24 06:00] VITALS: BP 125/59
[2021-09-24] MEDS: lactose-reduced food (Ensure Enlive) - 237ml bottle PO SCH ×3 (07:45→18:00)
[2021-09-24] MEDS: sodium chloride 1gm tablet PO SCH ×4 (08:00→21:33)
[2021-09-24] MEDS: docusate sod 100mg capsule PO SCH ×2 (08:00→21:33)
[2021-09-24] MEDS: lactobacillus rhamnosus 10,000 MMU CELLS/CAPSULE PO SCH ×2 (08:00→21:33)
[2021-09-24] MEDS: K and/or MAG REPLACEMENT MC SCH ×2 (08:00→20:00)
[2021-09-24] MEDS: oxyCODONE SR 10mg (sust. release) tab PO SCH ×2 (08:00→21:33)
[2021-09-24] MEDS: dextroamphetamine/amphetamine 5mg tablet PO SCH ×2 (08:00→16:00)
--- NOTE | 2021-09-24 08:04 | NUR ---
PT WAS 76% ON RA, PT STATED SHE TOOK HER NASAL CANNULA OUT OF HER NOSE BECAUSE IT WAS CHOKING HER. PLACED NC BACK IN PTS NARE, EDUCATED PT ON OXYGEN NEED AND EDUCATED SITTER ON NEED FOR PT TO KEEP OXYGEN ON Addendum: 09/24/21 at 0805 [address] RT Amended: Links added.
[2021-09-24] MEDS: cholecalciferol (vitamin D3) 1,000 unit (25mcg) tablet PO SCH (09:07)
[2021-09-24] MEDS: enoxaparin 40mg/0.4ml syringe SUBCUT SCH ×2 (09:07→21:34)
[2021-09-24] MEDS: insulin Lispro (HumaLOG) vial - multi-dose SQ SCH ×3 (09:07→19:20)
[2021-09-24] MEDS: ALPRAZolam 0.5mg tablet PO SCH ×4 (09:07→21:33)
[2021-09-24] MEDS: duloxetine 30mg CAPSULE.DR PO SCH (09:08)
[2021-09-24] MEDS: HYDROchlorothiazide 25mg tablet PO SCH (09:08)
[2021-09-24] MEDS: fenofibrate 145mg tablet PO SCH (09:08)
[2021-09-24] MEDS: methylPREDNISolone sod succ/PF 40mg inj. IV SCH ×4 (09:09→21:31)
[2021-09-24] MEDS: diltiazem CD 180mg cap (once-daily) PO SCH (09:11)
[2021-09-24 09:51] LABS: BASOPHILS % (AUTO) 0.1 % (0-1); EOSINOPHILS % (AUTO) 0 % (0-6); HEMATOCRIT 41.7 % (35.0-45.0); HEMOGLOBIN 14.5 g/dl (12.0-16.0); LYMPHOCYTES # (AUTO) 0.6 X10'3 (1.1-4.8); LYMPHOCYTES % (AUTO) 6.1 % (21-51); MEAN CORPUSCULAR HEMOGLOBIN 31.5 PG (27.0-31.0); MEAN CORPUSCULAR HGB CONC 34.8 g/dL (33.0-36.5); MEAN CORPUSCULAR VOLUME 90.6 FL (78-98); MEAN PLATELET VOLUME 8.9 FL (7.4-10.4); MONOCYTES # (AUTO) 0.4 X10'3 (0-0.9); MONOCYTES % (AUTO) 3.4 % (2-12); NEUTROPHILS # (AUTO) 9.4 X10'3 (1.8-7.7); NEUTROPHILS % (AUTO) 90.4 % (42-75); PLATELET COUNT 468 X10'3 (140-440); RED CELL DISTRIBUTION WIDTH 13.4 % (11.5-14.5); WHITE BLOOD COUNT 10.4 X10'3 (4.5-11.0)
[2021-09-24 10:00] VITALS: BP 135/69
[2021-09-24 10:07] LABS: D-DIMER 0.58 MG/L FEU (0-0.50)
[2021-09-24 10:20] LABS: ALANINE AMINOTRANSFERASE 45 U/L (12-78); ALBUMIN 2.5 G/DL (3.4-5.0); ALBUMIN/GLOBULIN RATIO 0.5 (1.1-1.5); ALKALINE PHOSPHATASE 64 IU/L (46-116); ANION GAP 11 (8-16); ASPARTATE AMINO TRANSFERASE 23 U/L (10-37); BILIRUBIN,TOTAL 0.5 MG/DL (0.1-1.0); BLOOD UREA NITROGEN 32 MG/DL (7-18); BUN/CREATININE RATIO 37.6 (6.6-38.0); CALCIUM 9.3 MG/DL (8.5-10.1); CHLORIDE 100 MMOL/L (99-107); CREATININE 0.85 MG/DL (0.40-0.90); GLUCOSE 187 MG/DL (70-104); POTASSIUM 3.6 MMOL/L (3.5-5.1); SODIUM 138 MMOL/L (135-145); TOTAL CARBON DIOXIDE 26.9 MMOL/L (24-32); TOTAL PROTEIN 7.1 G/DL (6.4-8.2); eGFR 68 ML/MIN
[2021-09-24 11:37] LABS: TOTAL CELLS COUNTED 100
[2021-09-24 11:38] LABS: PLATELET ESTIMATE INCREASED
[2021-09-24 14:30] VITALS: BP 104/62
--- NOTE | 2021-09-24 15:52 | NUR ---
F/u 09/24: Pt PO much improved past 2.5 days ~100% Glucerna ONS substituted for Ensure Enlive given national shortage w/ PO ~63% avg meals up to 75-100% breakfast and lunch today. Best nutrition intake this admit currently meeting estimated needs; independent w/ feeding on 15L high flow per EMR. LBM 09/23 receiving routine colace and reglan. Will continue to monitor further PO trends and additional nutrition intervention needs. Recommendations: 1. Liberalize to regular diet given poor PO hx 2. Ensure Enlive TIDWM; substitute w/ Glucerna ONS given national Ensure Enlive shortage; ice cream BIDLD 3. Encourage PO intake of meals/ONS 4. Routine bowel care; routine Reglan Q6H per MD 5. Weekly scaled weights Addendum: 09/24/21 at [address] Amended: Links added.
[2021-09-24 18:00] VITALS: BP 156/69
[2021-09-24] MEDS: insulin glargine (Lantus) pen - multi-dose SQ SCH (21:30)
[2021-09-24] MEDS: guaiFENesin 200 MG/10 ML oral syrup UD cup PO PRN (21:52)
[2021-09-24 22:00] VITALS: BP 147/72
[2021-09-25 02:00] VITALS: BP 131/71
[2021-09-25] MEDS: metoclopramide 5 mg/ml inj IV SCH ×4 (02:00→21:05)
[2021-09-25 06:00] VITALS: BP 123/56
--- NOTE | 2021-09-25 06:32 | NUR ---
Problems reprioritized. Patient report given, questions answered & plan of care reviewed with yeny Manzo.
[2021-09-25 07:35] LABS: BASOPHILS % (AUTO) 0.1 % (0-1); EOSINOPHILS % (AUTO) 0.3 % (0-6); HEMATOCRIT 43.8 % (35.0-45.0); HEMOGLOBIN 14.7 g/dl (12.0-16.0); LYMPHOCYTES # (AUTO) 0.6 X10'3 (1.1-4.8); LYMPHOCYTES % (AUTO) 4.8 % (21-51); MEAN CORPUSCULAR HEMOGLOBIN 31.1 PG (27.0-31.0); MEAN CORPUSCULAR HGB CONC 33.5 g/dL (33.0-36.5); MEAN CORPUSCULAR VOLUME 92.8 FL (78-98); MEAN PLATELET VOLUME 8.9 FL (7.4-10.4); MONOCYTES # (AUTO) 0.4 X10'3 (0-0.9); MONOCYTES % (AUTO) 3.5 % (2-12); NEUTROPHILS # (AUTO) 10.6 X10'3 (1.8-7.7); NEUTROPHILS % (AUTO) 91.3 % (42-75); PLATELET COUNT 445 X10'3 (140-440); RED BLOOD COUNT 4.71 X10'6 (4.20-5.60); RED CELL DISTRIBUTION WIDTH 13.4 % (11.5-14.5); WHITE BLOOD COUNT 11.6 X10'3 (4.5-11.0)
[2021-09-25 07:53] LABS: D-DIMER 0.66 MG/L FEU (0-0.50)
[2021-09-25] MEDS: lactose-reduced food (Ensure Enlive) - 237ml bottle PO SCH ×3 (08:00→18:00)
[2021-09-25] MEDS: K and/or MAG REPLACEMENT MC SCH ×2 (08:00→20:00)
[2021-09-25] MEDS: sodium chloride 1gm tablet PO SCH ×4 (08:00→21:05)
[2021-09-25] MEDS: oxyCODONE SR 10mg (sust. release) tab PO SCH ×2 (08:00→21:05)
[2021-09-25 08:34] LABS: ALANINE AMINOTRANSFERASE 62 U/L (12-78); ALBUMIN 2.6 G/DL (3.4-5.0); ALBUMIN/GLOBULIN RATIO 0.6 (1.1-1.5); ALKALINE PHOSPHATASE 69 IU/L (46-116); ANION GAP 11 (8-16); ASPARTATE AMINO TRANSFERASE 22 U/L (10-37); BILIRUBIN,TOTAL 0.5 MG/DL (0.1-1.0); BLOOD UREA NITROGEN 29 MG/DL (7-18); BUN/CREATININE RATIO 34.9 (6.6-38.0); C-REACTIVE PROTEIN 0.09 MG/DL (0.0-0.5); CALCIUM 9.5 MG/DL (8.5-10.1); CHLORIDE 101 MMOL/L (99-107); CREATININE 0.83 MG/DL (0.40-0.90); GLUCOSE 139 MG/DL (70-104); LACTATE DEHYDROGENASE 304 U/L (81-234); MAGNESIUM 2.4 MG/DL (1.5-2.4); PHOSPHORUS 4.5 MG/DL (2.3-4.5); POTASSIUM 4.1 MMOL/L (3.5-5.1); SODIUM 138 MMOL/L (135-145); TOTAL CARBON DIOXIDE 26.4 MMOL/L (24-32); TOTAL PROTEIN 7.1 G/DL (6.4-8.2); eGFR 70 ML/MIN
[2021-09-25] MEDS: insulin Lispro (HumaLOG) vial - multi-dose SQ SCH ×3 (08:50→19:13)
[2021-09-25] MEDS: ALPRAZolam 0.5mg tablet PO SCH ×4 (08:51→21:05)
[2021-09-25] MEDS: diltiazem CD 180mg cap (once-daily) PO SCH (08:51)
[2021-09-25] MEDS: dextroamphetamine/amphetamine 5mg tablet PO SCH ×2 (08:51→14:00)
[2021-09-25] MEDS: enoxaparin 40mg/0.4ml syringe SUBCUT SCH ×2 (08:51→21:06)
[2021-09-25] MEDS: lactobacillus rhamnosus 10,000 MMU CELLS/CAPSULE PO SCH ×2 (08:52→21:05)
[2021-09-25] MEDS: HYDROchlorothiazide 25mg tablet PO SCH (08:52)
[2021-09-25] MEDS: cholecalciferol (vitamin D3) 1,000 unit (25mcg) tablet PO SCH (08:52)
[2021-09-25] MEDS: duloxetine 30mg CAPSULE.DR PO SCH (08:52)
[2021-09-25] MEDS: docusate sod 100mg capsule PO SCH ×2 (08:52→21:05)
[2021-09-25] MEDS: fenofibrate 145mg tablet PO SCH (08:52)
[2021-09-25] MEDS: methylPREDNISolone sod succ/PF 40mg inj. IV SCH ×2 (08:53→21:05)
[2021-09-25] MEDS ORDERED: salt irrigation nasal spray 45 ML SPRAY NS PRN (09:10)
[2021-09-25 10:00] VITALS: BP 137/63
[2021-09-25 14:00] VITALS: BP 121/62
[2021-09-25 18:00] VITALS: BP 133/63
[2021-09-25] MEDS: insulin glargine (Lantus) pen - multi-dose SQ SCH (21:16)
[2021-09-25] MEDS: guaiFENesin 200 MG/10 ML oral syrup UD cup PO PRN (21:24)
[2021-09-25 22:00] VITALS: BP 148/80
[2021-09-26 02:00] VITALS: BP 116/71
[2021-09-26] MEDS: metoclopramide 5 mg/ml inj IV SCH ×5 (02:00→19:21)
--- NOTE | 2021-09-26 06:33 | NUR ---
Problems reprioritized. Patient report given, questions answered & plan of care reviewed with JASMIN WINTER.
[2021-09-26 07:00] VITALS: BP 125/70
[2021-09-26 07:59] LABS: BASOPHILS % (AUTO) 0.1 % (0-1); EOSINOPHILS % (AUTO) 0 % (0-6); HEMATOCRIT 41.9 % (35.0-45.0); HEMOGLOBIN 14.3 g/dl (12.0-16.0); LYMPHOCYTES # (AUTO) 0.8 X10'3 (1.1-4.8); LYMPHOCYTES % (AUTO) 5.1 % (21-51); MEAN CORPUSCULAR HEMOGLOBIN 31.2 PG (27.0-31.0); MEAN CORPUSCULAR HGB CONC 34.3 g/dL (33.0-36.5); MEAN PLATELET VOLUME 8.5 FL (7.4-10.4); MONOCYTES # (AUTO) 0.6 X10'3 (0-0.9); MONOCYTES % (AUTO) 3.8 % (2-12); NEUTROPHILS # (AUTO) 13.6 X10'3 (1.8-7.7); PLATELET COUNT 429 X10'3 (140-440); RED CELL DISTRIBUTION WIDTH 13.5 % (11.5-14.5)
[2021-09-26] MEDS: K and/or MAG REPLACEMENT MC SCH ×2 (08:00→19:23)
[2021-09-26] MEDS: lactose-reduced food (Ensure Enlive) - 237ml bottle PO SCH ×3 (08:00→18:25)
[2021-09-26] MEDS: dextroamphetamine/amphetamine 5mg tablet PO SCH ×2 (08:25→13:25)
[2021-09-26] MEDS: fenofibrate 145mg tablet PO SCH (08:25)
[2021-09-26] MEDS: sodium chloride 1gm tablet PO SCH ×5 (08:25→21:05)
[2021-09-26] MEDS: docusate sod 100mg capsule PO SCH ×3 (08:25→19:30)
[2021-09-26] MEDS: ALPRAZolam 0.5mg tablet PO SCH ×4 (08:25→21:05)
[2021-09-26] MEDS: cholecalciferol (vitamin D3) 1,000 unit (25mcg) tablet PO SCH (08:25)
[2021-09-26] MEDS: HYDROchlorothiazide 25mg tablet PO SCH (08:25)
[2021-09-26] MEDS: lactobacillus rhamnosus 10,000 MMU CELLS/CAPSULE PO SCH ×2 (08:25→19:23)
[2021-09-26] MEDS: oxyCODONE SR 10mg (sust. release) tab PO SCH ×2 (08:25→19:23)
[2021-09-26] MEDS: duloxetine 30mg CAPSULE.DR PO SCH (08:25)
[2021-09-26] MEDS: enoxaparin 40mg/0.4ml syringe SUBCUT SCH ×2 (08:26→19:24)
[2021-09-26] MEDS: diltiazem CD 180mg cap (once-daily) PO SCH (08:26)
[2021-09-26] MEDS: methylPREDNISolone sod succ/PF 40mg inj. IV SCH ×2 (08:26→19:22)
[2021-09-26] MEDS: insulin Lispro (HumaLOG) vial - multi-dose SQ SCH ×4 (08:28→21:10)
[2021-09-26 08:29] LABS: ALANINE AMINOTRANSFERASE 81 U/L (12-78); ALBUMIN 2.5 G/DL (3.4-5.0); ALBUMIN/GLOBULIN RATIO 0.6 (1.1-1.5); ALKALINE PHOSPHATASE 68 IU/L (46-116); ANION GAP 9 (8-16); ASPARTATE AMINO TRANSFERASE 28 U/L (10-37); BILIRUBIN,TOTAL 0.4 MG/DL (0.1-1.0); BLOOD UREA NITROGEN 34 MG/DL (7-18); BUN/CREATININE RATIO 39.5 (6.6-38.0); C-REACTIVE PROTEIN 0.25 MG/DL (0.0-0.5); CALCIUM 9.3 MG/DL (8.5-10.1); CHLORIDE 102 MMOL/L (99-107); CREATININE 0.86 MG/DL (0.40-0.90); GLUCOSE 112 MG/DL (70-104); LACTATE DEHYDROGENASE 273 U/L (81-234); MAGNESIUM 2.1 MG/DL (1.5-2.4); PHOSPHORUS 3.9 MG/DL (2.3-4.5); POTASSIUM 4.2 MMOL/L (3.5-5.1); SODIUM 137 MMOL/L (135-145); TOTAL CARBON DIOXIDE 26.5 MMOL/L (24-32); TOTAL PROTEIN 6.8 G/DL (6.4-8.2); eGFR 67 ML/MIN
[2021-09-26 08:32] LABS: D-DIMER 0.61 MG/L FEU (0-0.50)
[2021-09-26 11:00] VITALS: BP 121/73
[2021-09-26 14:11] VITALS: BP 125/63
[2021-09-26 18:00] VITALS: BP 132/78
--- NOTE | 2021-09-26 18:27 | NUR ---
Problems reprioritized. Patient report given, questions answered & plan of care reviewed with JASMIN Gomez.
--- NOTE | 2021-09-26 18:31 | NUR ---
Patient in room ORTHO 4010. I have received report from Concepcion CASTELLANOS and had the opportunity to ask questions and assume patient care.
[2021-09-26] MEDS: guaiFENesin 200 MG/10 ML oral syrup UD cup PO PRN (19:37)
[2021-09-26] MEDS: insulin glargine (Lantus) pen - multi-dose SQ SCH (21:09)
[2021-09-26 22:00] VITALS: BP 134/78
[2021-09-27 02:00] VITALS: BP 130/70
[2021-09-27] MEDS: metoclopramide 5 mg/ml inj IV SCH ×4 (02:11→19:51)
[2021-09-27 06:20] VITALS: BP 105/53
--- NOTE | 2021-09-27 06:20 | NUR ---
Patient in room ORTHO 4010. I have received report from Patricia CASTELLANOS and had the opportunity to ask questions and assume patient care.
[2021-09-27] MEDS: cholecalciferol (vitamin D3) 1,000 unit (25mcg) tablet PO SCH (07:31)
[2021-09-27] MEDS: methylPREDNISolone sod succ/PF 40mg inj. IV SCH (07:31)
[2021-09-27] MEDS: duloxetine 30mg CAPSULE.DR PO SCH (07:31)
[2021-09-27] MEDS: sodium chloride 1gm tablet PO SCH ×4 (07:31→20:55)
[2021-09-27] MEDS: ALPRAZolam 0.5mg tablet PO SCH ×4 (07:31→20:55)
[2021-09-27] MEDS: lactobacillus rhamnosus 10,000 MMU CELLS/CAPSULE PO SCH ×2 (07:31→19:51)
[2021-09-27] MEDS: oxyCODONE SR 10mg (sust. release) tab PO SCH ×2 (07:31→19:51)
[2021-09-27] MEDS: enoxaparin 40mg/0.4ml syringe SUBCUT SCH ×2 (07:32→19:52)
[2021-09-27 07:33] LABS: NEUTROPHILS % (AUTO) 88.7 % (42-75); PLATELET COUNT 357 X10'3 (140-440)
[2021-09-27] MEDS: fenofibrate 145mg tablet PO SCH (07:33)
[2021-09-27] MEDS: HYDROchlorothiazide 25mg tablet PO SCH (07:33)
[2021-09-27] MEDS: diltiazem CD 180mg cap (once-daily) PO SCH (07:34)
[2021-09-27] MEDS: docusate sod 100mg capsule PO SCH ×2 (07:34→19:52)
[2021-09-27] MEDS: dextroamphetamine/amphetamine 5mg tablet PO SCH ×2 (07:35→14:26)
[2021-09-27 07:36] LABS: BASOPHILS % (AUTO) 0.1 % (0-1); EOSINOPHILS % (AUTO) 0.3 % (0-6); LYMPHOCYTES # (AUTO) 1.1 X10'3 (1.1-4.8); LYMPHOCYTES % (AUTO) 7.2 % (21-51); MEAN CORPUSCULAR HEMOGLOBIN 31.2 PG (27.0-31.0); MEAN CORPUSCULAR HGB CONC 34.1 g/dL (33.0-36.5); MEAN CORPUSCULAR VOLUME 91.4 FL (78-98); MEAN PLATELET VOLUME 8.8 FL (7.4-10.4); MONOCYTES # (AUTO) 0.5 X10'3 (0-0.9); MONOCYTES % (AUTO) 3.7 % (2-12); RED BLOOD COUNT 4.49 X10'6 (4.20-5.60); RED CELL DISTRIBUTION WIDTH 13.4 % (11.5-14.5)
[2021-09-27 07:53] LABS: ALANINE AMINOTRANSFERASE 94 U/L (12-78); ALBUMIN 2.5 G/DL (3.4-5.0); ALBUMIN/GLOBULIN RATIO 0.6 (1.1-1.5); ALKALINE PHOSPHATASE 65 IU/L (46-116); ANION GAP 7 (8-16); ASPARTATE AMINO TRANSFERASE 26 U/L (10-37); BILIRUBIN,TOTAL 0.4 MG/DL (0.1-1.0); BLOOD UREA NITROGEN 28 MG/DL (7-18); BUN/CREATININE RATIO 45.9 (6.6-38.0); C-REACTIVE PROTEIN 0.29 MG/DL (0.0-0.5); CALCIUM 9.2 MG/DL (8.5-10.1); CHLORIDE 101 MMOL/L (99-107); CREATININE 0.61 MG/DL (0.40-0.90); GLUCOSE 66 MG/DL (70-104); LACTATE DEHYDROGENASE 333 U/L (81-234); PHOSPHORUS 3.1 MG/DL (2.3-4.5); POTASSIUM 4.1 MMOL/L (3.5-5.1); SODIUM 140 MMOL/L (135-145); TOTAL CARBON DIOXIDE 32.1 MMOL/L (24-32); TOTAL PROTEIN 6.5 G/DL (6.4-8.2); eGFR > 90 ML/MIN
[2021-09-27] MEDS: K and/or MAG REPLACEMENT MC SCH ×2 (08:00→19:52)
[2021-09-27 08:18] LABS: D-DIMER 0.31 MG/L FEU (0-0.50)
[2021-09-27] MEDS: insulin Lispro (HumaLOG) vial - multi-dose SQ SCH ×3 (08:22→18:43)
[2021-09-27] MEDS: lactose-reduced food (Ensure Enlive) - 237ml bottle PO SCH ×3 (08:22→18:41)
[2021-09-27 10:00] VITALS: BP 155/67
[2021-09-27 13:58] LABS: WHITE BLOOD COUNT 14.6 X10'3 (4.5-11.0)
[2021-09-27 18:00] VITALS: BP 114/49
--- NOTE | 2021-09-27 18:12 | NUR ---
Problems reprioritized. Patient report given, questions answered & plan of care reviewed with Patricia CASTELLANOS.
--- NOTE | 2021-09-27 18:20 | NUR ---
Patient in room ORTHO 4010. I have received report from Kyung CASTELLANOS and had the opportunity to ask questions and assume patient care.
[2021-09-27] MEDS: guaiFENesin 200 MG/10 ML oral syrup UD cup PO PRN (20:02)
[2021-09-27] MEDS: insulin glargine (Lantus) pen - multi-dose SQ SCH (20:55)
[2021-09-27 22:00] VITALS: BP 117/56
[2021-09-28 02:00] VITALS: BP 143/60
[2021-09-28] MEDS: metoclopramide 5 mg/ml inj IV SCH ×4 (02:04→20:01)
--- NOTE | 2021-09-28 06:21 | NUR ---
Problems reprioritized. Patient report given, questions answered & plan of care reviewed with Kyung CASTELLANOS.
[2021-09-28 06:43] VITALS: BP 126/59
--- NOTE | 2021-09-28 06:43 | NUR ---
Patient in room ORTHO 4010. I have received report from Patricia CASTELLANOS and had the opportunity to ask questions and assume patient care.
[2021-09-28] MEDS: duloxetine 30mg CAPSULE.DR PO SCH (07:33)
[2021-09-28] MEDS: dextroamphetamine/amphetamine 5mg tablet PO SCH ×2 (07:33→13:37)
[2021-09-28] MEDS: enoxaparin 40mg/0.4ml syringe SUBCUT SCH ×2 (07:33→20:03)
[2021-09-28] MEDS: oxyCODONE SR 10mg (sust. release) tab PO SCH ×2 (07:33→20:01)
[2021-09-28] MEDS: diltiazem CD 180mg cap (once-daily) PO SCH (07:34)
[2021-09-28] MEDS: docusate sod 100mg capsule PO SCH ×2 (07:34→20:00)
[2021-09-28] MEDS: cholecalciferol (vitamin D3) 1,000 unit (25mcg) tablet PO SCH (07:34)
[2021-09-28] MEDS: sodium chloride 1gm tablet PO SCH ×4 (07:34→21:10)
[2021-09-28] MEDS: ALPRAZolam 0.5mg tablet PO SCH ×4 (07:34→21:10)
[2021-09-28] MEDS: lactobacillus rhamnosus 10,000 MMU CELLS/CAPSULE PO SCH ×2 (07:34→20:00)
[2021-09-28] MEDS: fenofibrate 145mg tablet PO SCH (07:34)
[2021-09-28] MEDS: predniSONE 20 mg tablet PO SCH (07:35)
[2021-09-28] MEDS: HYDROchlorothiazide 25mg tablet PO SCH (08:00)
[2021-09-28] MEDS: K and/or MAG REPLACEMENT MC SCH ×2 (08:00→20:00)
[2021-09-28 08:21] LABS: HEMOGLOBIN 13.3 g/dl (12.0-16.0)
[2021-09-28 08:23] LABS: BASOPHILS % (AUTO) 0.1 % (0-1); EOSINOPHILS # (AUTO) 0.2 X10'3 (0-0.9); EOSINOPHILS % (AUTO) 1.3 % (0-6); HEMATOCRIT 39.7 % (35.0-45.0); LYMPHOCYTES # (AUTO) 1.4 X10'3 (1.1-4.8); LYMPHOCYTES % (AUTO) 8.1 % (21-51); MEAN CORPUSCULAR HEMOGLOBIN 31.3 PG (27.0-31.0); MEAN CORPUSCULAR HGB CONC 33.6 g/dL (33.0-36.5); MEAN CORPUSCULAR VOLUME 93.2 FL (78-98); MEAN PLATELET VOLUME 8.8 FL (7.4-10.4); MONOCYTES # (AUTO) 0.8 X10'3 (0-0.9); MONOCYTES % (AUTO) 4.5 % (2-12); NEUTROPHILS # (AUTO) 14.9 X10'3 (1.8-7.7); PLATELET COUNT 344 X10'3 (140-440); RED BLOOD COUNT 4.26 X10'6 (4.20-5.60); RED CELL DISTRIBUTION WIDTH 13.6 % (11.5-14.5); WHITE BLOOD COUNT 17.3 X10'3 (4.5-11.0)
[2021-09-28] MEDS: lactose-reduced food (Ensure Enlive) - 237ml bottle PO SCH ×3 (08:33→18:59)
[2021-09-28 08:45] LABS: D-DIMER 0.59 MG/L FEU (0-0.50)
--- NOTE | 2021-09-28 08:51 | NUR ---
Blood glucose critically low this morning; no coverage for breakfast was given
--- NOTE | 2021-09-28 08:52 | NUR ---
Patient was 100% with 15 liters salter and 10 liters nonrebreather also, removed nonrebreather and patient was still 99%, titrated to 10 liters, still in high 90s. Titrated down to 8 liters.
[2021-09-28 08:59] LABS: ALANINE AMINOTRANSFERASE 108 U/L (12-78); ALBUMIN 2.5 G/DL (3.4-5.0); ALBUMIN/GLOBULIN RATIO 0.6 (1.1-1.5); ALKALINE PHOSPHATASE 58 IU/L (46-116); ANION GAP 6 (8-16); ASPARTATE AMINO TRANSFERASE 52 U/L (10-37); BILIRUBIN,TOTAL 0.5 MG/DL (0.1-1.0); BLOOD UREA NITROGEN 25 MG/DL (7-18); BUN/CREATININE RATIO 39.1 (6.6-38.0); CHLORIDE 99 MMOL/L (99-107); CREATININE 0.64 MG/DL (0.40-0.90); LACTATE DEHYDROGENASE 353 U/L (81-234); MAGNESIUM 2.1 MG/DL (1.5-2.4); PHOSPHORUS 3.2 MG/DL (2.3-4.5); POTASSIUM 4.2 MMOL/L (3.5-5.1); SODIUM 135 MMOL/L (135-145); TOTAL CARBON DIOXIDE 29.7 MMOL/L (24-32); TOTAL PROTEIN 6.4 G/DL (6.4-8.2); eGFR > 90 ML/MIN
[2021-09-28 09:00] LABS: C-REACTIVE PROTEIN 1.43 MG/DL (0.0-0.5)
[2021-09-28 09:06] LABS: GLUCOSE 29 MG/DL (70-104)
[2021-09-28 09:51] VITALS: BP 100/55
[2021-09-28] MEDS: insulin Lispro (HumaLOG) vial - multi-dose SQ SCH ×2 (13:37→18:55)
[2021-09-28 14:42] VITALS: BP 93/51
--- NOTE | 2021-09-28 15:04 | NUR ---
F/u 09/28: Pt PO continues to improve 75% avg carb controlled meals w/ 100% Ensure Enlive TIDWM now exceeding estimated needs. ODN d/w RN recommends changing Ensure Enlive to once daily WS if MD agreeable. Noted Glu 29-46mg/dl this AM likely r/t receiving 42 units Lantus last night for AM Glu 73; now corrected to 140mg/dl s/p dex. LBM 09/27. Will continue to monitor. Recommendations: 1. Continue carb controlled diet 2. Ensure Enlive ONS change to once daily WS from prior TIDWM given improved PO intake if MD agreeable 3. Encourage PO intake of meals/ONS 4. Routine bowel care; routine Reglan Q6H per MD 5. Weekly scaled weights Addendum: 09/28/21 at [address] Amended: Links added.
[2021-09-28 18:00] VITALS: BP 113/52
--- NOTE | 2021-09-28 18:16 | NUR ---
Problems reprioritized. Patient report given, questions answered & plan of care reviewed with Patricia CASTELLANOS.
--- NOTE | 2021-09-28 18:22 | NUR ---
Patient in room ORTHO 4010. I have received report from Kyung CASTELLANOS and had the opportunity to ask questions and assume patient care.
--- NOTE | 2021-09-28 18:41 | NUR ---
PAGER ID: [phone] MESSAGE: Please call [phone]/Patricia r/o Christopher Franco [phone]. Glucose this AM was 46. Due to tapering of steroids would you like to decrease nighttime lantus? Per protocol only decrease by 10% so patient will still receive 38 units tonight? please advise.
[2021-09-28] MEDS: guaiFENesin 200 MG/10 ML oral syrup UD cup PO PRN (20:04)
[2021-09-28] MEDS: nystatin 15 GM powder TP SCH (21:10)
[2021-09-28 22:00] VITALS: BP 120/59
[2021-09-29] MEDS: guaiFENesin 200 MG/10 ML oral syrup UD cup PO PRN ×2 (01:58→18:34)
[2021-09-29 02:00] VITALS: BP 116/72
[2021-09-29] MEDS: metoclopramide 5 mg/ml inj IV SCH ×4 (02:00→20:15)
[2021-09-29] MEDS: acetaminophen 325mg tablet PO PRN (04:18)
--- NOTE | 2021-09-29 06:17 | NUR ---
Problems reprioritized. Patient report given, questions answered & plan of care reviewed with Kyung CASTELLANOS.
--- NOTE | 2021-09-29 06:22 | NUR ---
Patient in room ORTHO 4010. I have received report from Patricia CASTELLANOS and had the opportunity to ask questions and assume patient care.
[2021-09-29 06:24] VITALS: BP 102/48
[2021-09-29] MEDS: dextroamphetamine/amphetamine 5mg tablet PO SCH ×2 (07:02→14:00)
[2021-09-29] MEDS: cholecalciferol (vitamin D3) 1,000 unit (25mcg) tablet PO SCH (07:02)
[2021-09-29] MEDS: fenofibrate 145mg tablet PO SCH (07:02)
[2021-09-29] MEDS: sodium chloride 1gm tablet PO SCH ×4 (07:02→20:15)
[2021-09-29] MEDS: enoxaparin 40mg/0.4ml syringe SUBCUT SCH ×2 (07:03→20:15)
[2021-09-29] MEDS: lactobacillus rhamnosus 10,000 MMU CELLS/CAPSULE PO SCH ×2 (07:03→20:15)
[2021-09-29] MEDS: predniSONE 20 mg tablet PO SCH (07:03)
[2021-09-29] MEDS: nystatin 15 GM powder TP SCH ×3 (07:03→20:15)
[2021-09-29] MEDS: ALPRAZolam 0.5mg tablet PO SCH ×4 (07:03→20:15)
[2021-09-29] MEDS: duloxetine 30mg CAPSULE.DR PO SCH (07:03)
[2021-09-29] MEDS: oxyCODONE SR 10mg (sust. release) tab PO SCH ×2 (07:03→20:15)
[2021-09-29] MEDS: docusate sod 100mg capsule PO SCH ×2 (07:11→20:15)
[2021-09-29] MEDS: HYDROchlorothiazide 25mg tablet PO SCH (08:00)
[2021-09-29] MEDS: K and/or MAG REPLACEMENT MC SCH ×2 (08:00→19:36)
[2021-09-29] MEDS: lactose-reduced food (Ensure Enlive) - 237ml bottle PO SCH ×3 (08:38→18:26)
[2021-09-29 08:39] LABS: BASOPHILS % (AUTO) 0.2 % (0-1); EOSINOPHILS # (AUTO) 0.2 X10'3 (0-0.9); EOSINOPHILS % (AUTO) 2.1 % (0-6); HEMATOCRIT 37.8 % (35.0-45.0); HEMOGLOBIN 12.7 g/dl (12.0-16.0); LYMPHOCYTES % (AUTO) 8.3 % (21-51); MEAN CORPUSCULAR HEMOGLOBIN 31.1 PG (27.0-31.0); MEAN CORPUSCULAR HGB CONC 33.6 g/dL (33.0-36.5); MEAN CORPUSCULAR VOLUME 92.4 FL (78-98); MEAN PLATELET VOLUME 8.4 FL (7.4-10.4); MONOCYTES # (AUTO) 0.4 X10'3 (0-0.9); MONOCYTES % (AUTO) 3.1 % (2-12); NEUTROPHILS # (AUTO) 10.1 X10'3 (1.8-7.7); NEUTROPHILS % (AUTO) 86.3 % (42-75); PLATELET COUNT 294 X10'3 (140-440); RED BLOOD COUNT 4.08 X10'6 (4.20-5.60); RED CELL DISTRIBUTION WIDTH 13.8 % (11.5-14.5); WHITE BLOOD COUNT 11.8 X10'3 (4.5-11.0)
[2021-09-29] MEDS: insulin Lispro (HumaLOG) vial - multi-dose SQ SCH ×3 (08:41→18:36)
--- NOTE | 2021-09-29 08:50 | NUR ---
PAGER ID: [phone] MESSAGE: [phone], Salvador patient is complaining of burning with urination, urine is cloudy and foul smelling. Would you like a UA? joni [phone]
[2021-09-29 08:54] LABS: ALANINE AMINOTRANSFERASE 95 U/L (12-78); ALBUMIN 2.5 G/DL (3.4-5.0); ALBUMIN/GLOBULIN RATIO 0.6 (1.1-1.5); ALKALINE PHOSPHATASE 59 IU/L (46-116); ANION GAP 4 (8-16); ASPARTATE AMINO TRANSFERASE 29 U/L (10-37); BILIRUBIN,TOTAL 0.5 MG/DL (0.1-1.0); BLOOD UREA NITROGEN 24 MG/DL (7-18); BUN/CREATININE RATIO 35.3 (6.6-38.0); C-REACTIVE PROTEIN 4.84 MG/DL (0.0-0.5); CALCIUM 9.2 MG/DL (8.5-10.1); CHLORIDE 101 MMOL/L (99-107); CREATININE 0.68 MG/DL (0.40-0.90); GLUCOSE 64 MG/DL (70-104); LACTATE DEHYDROGENASE 273 U/L (81-234); MAGNESIUM 2.1 MG/DL (1.5-2.4); PHOSPHORUS 3.2 MG/DL (2.3-4.5); POTASSIUM 4.3 MMOL/L (3.5-5.1); SODIUM 137 MMOL/L (135-145); TOTAL CARBON DIOXIDE 32.5 MMOL/L (24-32); TOTAL PROTEIN 6.4 G/DL (6.4-8.2); eGFR 88 ML/MIN
[2021-09-29 08:56] LABS: D-DIMER 0.98 MG/L FEU (0-0.50)
[2021-09-29] MEDS: diltiazem CD 180mg cap (once-daily) PO SCH (09:45)
[2021-09-29 09:57] VITALS: BP 116/59
[2021-09-29 14:00] VITALS: BP 105/66
[2021-09-29 14:33] LABS: CLARITY,URINE CLOUDY (Clear); COLOR,URINE YELLOW (Yellow); GLUCOSE, URINE NEGATIVE (Neg); KETONES,URINE NEGATIVE (Neg); LEUKOCYTE ESTERASE ,URINE NEGATIVE (Neg); NITRITES, URINE NEGATIVE (Neg); OCCULT BLOOD,URINE NEGATIVE (Neg); PH,URINE 6.5 (4.8-8.0); PROTEIN,URINE NEGATIVE (Neg); UA COLLECTION TYPE STRAIGHT CATH; UROBILINOGEN,URINE 0.2 E.U/dL (0.2-1.0)
[2021-09-29 14:36] LABS: BACTERIA,URINE NONE SEEN /HPF (Neg); MUCUS STRANDS NONE SEEN /LPF (Neg); RBC,URINE NONE SEEN /HPF (0-2); SQUAMOUS EPITHELIAL CELL,UR NONE SEEN /LPF (FEW); WBC,URINE NONE SEEN /HPF (0-4)
[2021-09-29 14:37] LABS: AMORPHOUS URATES 2+
[2021-09-29 18:00] VITALS: BP 103/64
--- NOTE | 2021-09-29 18:23 | NUR ---
Problems reprioritized. Patient report given, questions answered & plan of care reviewed with Vandana CASTELLANOS.
--- NOTE | 2021-09-29 18:24 | NUR ---
Patient in room ORTHO 4010. I have received report from JASMIN Tracey and had the opportunity to ask questions and assume patient care.
[2021-09-29 22:00] VITALS: BP 112/43
[2021-09-30] MEDS: guaiFENesin 200 MG/10 ML oral syrup UD cup PO PRN ×2 (00:31→19:42)
[2021-09-30 02:00] VITALS: BP 110/62
[2021-09-30] MEDS: metoclopramide 5 mg/ml inj IV SCH ×4 (02:10→19:28)
[2021-09-30 06:00] VITALS: BP 103/61
--- NOTE | 2021-09-30 06:38 | NUR ---
Problems reprioritized. Patient report given, questions answered & plan of care reviewed with JASMIN See.
[2021-09-30] MEDS: enoxaparin 40mg/0.4ml syringe SUBCUT SCH ×2 (07:14→19:29)
[2021-09-30] MEDS: lactobacillus rhamnosus 10,000 MMU CELLS/CAPSULE PO SCH ×2 (07:14→19:28)
[2021-09-30] MEDS: nystatin 15 GM powder TP SCH ×3 (07:14→19:44)
[2021-09-30] MEDS: cholecalciferol (vitamin D3) 1,000 unit (25mcg) tablet PO SCH (07:14)
[2021-09-30] MEDS: fenofibrate 145mg tablet PO SCH (07:15)
[2021-09-30] MEDS: HYDROchlorothiazide 25mg tablet PO SCH (07:15)
[2021-09-30] MEDS: oxyCODONE SR 10mg (sust. release) tab PO SCH ×2 (07:15→19:28)
[2021-09-30] MEDS: duloxetine 30mg CAPSULE.DR PO SCH (07:15)
[2021-09-30] MEDS: ALPRAZolam 0.5mg tablet PO SCH ×4 (07:15→19:28)
[2021-09-30] MEDS: diltiazem CD 180mg cap (once-daily) PO SCH (07:15)
[2021-09-30] MEDS: sodium chloride 1gm tablet PO SCH ×4 (07:15→19:28)
[2021-09-30] MEDS: dextroamphetamine/amphetamine 5mg tablet PO SCH ×2 (07:15→13:36)
[2021-09-30] MEDS: predniSONE 20 mg tablet PO SCH (07:16)
[2021-09-30] MEDS: docusate sod 100mg capsule PO SCH ×2 (07:18→19:28)
[2021-09-30] MEDS: lactose-reduced food (Ensure Enlive) - 237ml bottle PO SCH ×3 (07:27→18:14)
[2021-09-30] MEDS: K and/or MAG REPLACEMENT MC SCH ×2 (08:00→20:00)
[2021-09-30] MEDS: insulin Lispro (HumaLOG) vial - multi-dose SQ SCH ×4 (08:28→21:22)
[2021-09-30 10:00] VITALS: BP 97/42
[2021-09-30 14:00] VITALS: BP 95/47
[2021-09-30 18:00] VITALS: BP 103/48
--- NOTE | 2021-09-30 18:48 | NUR ---
Problems reprioritized. Patient report given, questions answered & plan of care reviewed with JASMIN Lyons.
[2021-09-30 22:00] VITALS: BP 131/64
[2021-10-01 02:00] VITALS: BP 111/61
[2021-10-01] MEDS: guaiFENesin 200 MG/10 ML oral syrup UD cup PO PRN ×2 (02:01→21:55)
[2021-10-01] MEDS: metoclopramide 5 mg/ml inj IV SCH ×4 (02:01→21:56)
[2021-10-01 06:00] VITALS: BP 113/45
--- NOTE | 2021-10-01 06:23 | NUR ---
Problems reprioritized. Patient report given, questions answered & plan of care reviewed with JASMIN See.
--- NOTE | 2021-10-01 06:25 | NUR ---
Patient in room ORTHO 4010B. I have received report from JASMIN SAMPSON and had the opportunity to ask questions and assume patient care.
[2021-10-01] MEDS: lactose-reduced food (Ensure Enlive) - 237ml bottle PO SCH ×3 (08:00→18:04)
[2021-10-01] MEDS: K and/or MAG REPLACEMENT MC SCH ×2 (08:00→20:00)
[2021-10-01] MEDS: docusate sod 100mg capsule PO SCH ×2 (09:00→21:55)
[2021-10-01] MEDS: predniSONE 20 mg tablet PO SCH (09:06)
[2021-10-01] MEDS: ALPRAZolam 0.5mg tablet PO SCH ×4 (09:06→21:55)
[2021-10-01] MEDS: HYDROchlorothiazide 25mg tablet PO SCH (09:06)
[2021-10-01] MEDS: lactobacillus rhamnosus 10,000 MMU CELLS/CAPSULE PO SCH ×2 (09:06→21:55)
[2021-10-01] MEDS: diltiazem CD 180mg cap (once-daily) PO SCH (09:06)
[2021-10-01] MEDS: sodium chloride 1gm tablet PO SCH ×4 (09:06→21:55)
[2021-10-01] MEDS: duloxetine 30mg CAPSULE.DR PO SCH (09:07)
[2021-10-01] MEDS: oxyCODONE SR 10mg (sust. release) tab PO SCH ×2 (09:07→21:55)
[2021-10-01] MEDS: cholecalciferol (vitamin D3) 1,000 unit (25mcg) tablet PO SCH (09:07)
[2021-10-01] MEDS: fenofibrate 145mg tablet PO SCH (09:07)
[2021-10-01] MEDS: dextroamphetamine/amphetamine 5mg tablet PO SCH ×2 (09:07→13:36)
[2021-10-01] MEDS: enoxaparin 40mg/0.4ml syringe SUBCUT SCH ×2 (09:08→21:56)
[2021-10-01] MEDS: nystatin 15 GM powder TP SCH ×3 (09:13→21:00)
[2021-10-01] MEDS: insulin Lispro (HumaLOG) vial - multi-dose SQ SCH ×3 (09:17→18:35)
[2021-10-01 10:00] VITALS: BP 127/69
[2021-10-01 14:00] VITALS: BP 110/65
[2021-10-01 18:16] VITALS: BP 115/55
--- NOTE | 2021-10-01 18:18 | NUR ---
Problems reprioritized. Patient report given, questions answered & plan of care reviewed with JASMIN Choudhury.
[2021-10-02 02:00] VITALS: BP 101/58
[2021-10-02] MEDS: metoclopramide 5 mg/ml inj IV SCH ×4 (02:00→20:57)
[2021-10-02 06:00] VITALS: BP 107/61
--- NOTE | 2021-10-02 06:30 | NUR ---
Patient in room ORTHO 4010B. I have received report from JASMIN Choudhury and had the opportunity to ask questions and assume patient care.
[2021-10-02] MEDS: enoxaparin 40mg/0.4ml syringe SUBCUT SCH ×2 (07:11→20:57)
[2021-10-02] MEDS: prednisone 10mg tablet PO SCH (07:12)
[2021-10-02] MEDS: HYDROchlorothiazide 25mg tablet PO SCH (07:12)
[2021-10-02] MEDS: sodium chloride 1gm tablet PO SCH ×4 (07:12→20:57)
[2021-10-02] MEDS: ALPRAZolam 0.5mg tablet PO SCH ×4 (07:12→20:57)
[2021-10-02] MEDS: duloxetine 30mg CAPSULE.DR PO SCH (07:12)
[2021-10-02] MEDS: lactobacillus rhamnosus 10,000 MMU CELLS/CAPSULE PO SCH ×2 (07:12→20:57)
[2021-10-02] MEDS: dextroamphetamine/amphetamine 5mg tablet PO SCH ×2 (07:12→13:29)
[2021-10-02] MEDS: cholecalciferol (vitamin D3) 1,000 unit (25mcg) tablet PO SCH (07:12)
[2021-10-02] MEDS: diltiazem CD 180mg cap (once-daily) PO SCH (07:12)
[2021-10-02] MEDS: fenofibrate 145mg tablet PO SCH (07:12)
[2021-10-02] MEDS: oxyCODONE SR 10mg (sust. release) tab PO SCH ×2 (07:12→20:57)
[2021-10-02] MEDS: nystatin 15 GM powder TP SCH ×3 (07:13→20:58)
[2021-10-02] MEDS: docusate sod 100mg capsule PO SCH ×2 (07:14→20:57)
[2021-10-02] MEDS: K and/or MAG REPLACEMENT MC SCH ×2 (08:00→20:00)
[2021-10-02] MEDS: lactose-reduced food (Ensure Enlive) - 237ml bottle PO SCH ×2 (08:00→13:26)
[2021-10-02 08:34] LABS: D-DIMER 0.57 MG/L FEU (0-0.50)
[2021-10-02 10:00] VITALS: BP 107/47
[2021-10-02] MEDS: insulin Lispro (HumaLOG) vial - multi-dose SQ SCH ×3 (10:29→18:41)
--- NOTE | 2021-10-02 14:13 | NUR ---
Reassessment: Pt continues eating well with mostly 100% PO intake of meals and Ensure Enlive TID. TC to RN with recommendation to discontinue ONS given good PO intake of meals however RN unavailable, message left with another RN. LBM 10/01. No nutrition intervention implemented at this time. Will continue to follow. Recommendations: 1. Continue carb controlled diet 2. Discontinue Ensure Enlive if MD agreeable given mostly 100% PO intake of meals 3. Encourage PO intake of meals 4. Routine bowel care; routine Reglan Q6H per MD 5. Weekly scaled weights Addendum: 10/02/21 at [address] Amended: Links added.
--- NOTE | 2021-10-02 14:23 | NUR ---
F/u: TC with RN who reports will discontinue Ensure though pt likes drinking ONS. RD recommends at least decreasing frequency to once daily given good meal acceptance. Addendum: 10/02/21 at [address] Amended: Links added.
[2021-10-02] MEDS: guaiFENesin 200 MG/10 ML oral syrup UD cup PO PRN (16:33)
[2021-10-02] MEDS: HYDROcodone/acetaminophen 10/325mg tab PO PRN (16:36)
[2021-10-02 18:00] VITALS: BP 98/44
--- NOTE | 2021-10-02 18:30 | NUR ---
Problems reprioritized. Patient report given, questions answered & plan of care reviewed with JASMIN Choudhury.
[2021-10-02 22:00] VITALS: BP 103/44
[2021-10-03] MEDS: HYDROcodone/acetaminophen 10/325mg tab PO PRN ×2 (00:53→21:29)
[2021-10-03 02:00] VITALS: BP 107/55
[2021-10-03] MEDS: metoclopramide 5 mg/ml inj IV SCH ×4 (02:00→19:05)
[2021-10-03 06:00] VITALS: BP 103/55
--- NOTE | 2021-10-03 06:05 | NUR ---
received report from yeny chappell
[2021-10-03] MEDS: K and/or MAG REPLACEMENT MC SCH ×2 (07:03→20:00)
[2021-10-03] MEDS: dextroamphetamine/amphetamine 5mg tablet PO SCH ×2 (07:15→13:51)
[2021-10-03] MEDS: prednisone 10mg tablet PO SCH (07:16)
[2021-10-03] MEDS: cholecalciferol (vitamin D3) 1,000 unit (25mcg) tablet PO SCH (07:16)
[2021-10-03] MEDS: lactobacillus rhamnosus 10,000 MMU CELLS/CAPSULE PO SCH ×2 (07:17→19:05)
[2021-10-03] MEDS: duloxetine 30mg CAPSULE.DR PO SCH (07:17)
[2021-10-03] MEDS: oxyCODONE SR 10mg (sust. release) tab PO SCH ×2 (07:17→19:05)
[2021-10-03] MEDS: sodium chloride 1gm tablet PO SCH ×4 (07:17→21:25)
[2021-10-03] MEDS: ALPRAZolam 0.5mg tablet PO SCH ×4 (07:18→21:25)
[2021-10-03] MEDS: fenofibrate 145mg tablet PO SCH (07:18)
[2021-10-03] MEDS: nystatin 15 GM powder TP SCH ×3 (07:19→21:26)
[2021-10-03] MEDS: docusate sod 100mg capsule PO SCH ×2 (07:19→19:06)
[2021-10-03] MEDS: diltiazem CD 180mg cap (once-daily) PO SCH (07:20)
[2021-10-03] MEDS: HYDROchlorothiazide 25mg tablet PO SCH (07:20)
[2021-10-03] MEDS: enoxaparin 40mg/0.4ml syringe SUBCUT SCH ×2 (07:21→19:05)
[2021-10-03] MEDS: lactose-reduced food (Ensure Enlive) - 237ml bottle PO SCH (07:48)
[2021-10-03] MEDS: insulin Lispro (HumaLOG) vial - multi-dose SQ SCH ×3 (09:00→19:08)
[2021-10-03 10:00] VITALS: BP 122/58
[2021-10-03 15:06] VITALS: BP 115/58
[2021-10-03 18:00] VITALS: BP 111/67
--- NOTE | 2021-10-03 18:31 | NUR ---
gave report to yeny oconnor
[2021-10-03] MEDS: guaiFENesin 200 MG/10 ML oral syrup UD cup PO PRN (19:05)
[2021-10-03] MEDS: benzocaine/menthol oral lozeng 1 EACH BOX MM PRN (21:29)
[2021-10-03 22:00] VITALS: BP 103/76
[2021-10-04] MEDS: benzocaine/menthol oral lozeng 1 EACH BOX MM PRN ×4 (01:00→14:41)
[2021-10-04] MEDS: metoclopramide 5 mg/ml inj IV SCH ×4 (01:37→19:55)
[2021-10-04 02:20] VITALS: BP 102/54
[2021-10-04] MEDS: guaiFENesin 200 MG/10 ML oral syrup UD cup PO PRN (04:24)
[2021-10-04] MEDS: HYDROcodone/acetaminophen 10/325mg tab PO PRN ×2 (04:47→21:26)
[2021-10-04 06:00] VITALS: BP 120/74
--- NOTE | 2021-10-04 06:05 | NUR ---
received report from yeny oconnor
--- NOTE | 2021-10-04 06:33 | NUR ---
reported to days. noted pt resting w/o distress. up to BSC independently and maintaining oxygen levels at 5 liters regular nasal cannula. anticipate PT trial with oxygen and activity to get patient discharged.
[2021-10-04] MEDS: K and/or MAG REPLACEMENT MC SCH ×2 (07:03→20:00)
[2021-10-04] MEDS: duloxetine 30mg CAPSULE.DR PO SCH (07:10)
[2021-10-04] MEDS: lactobacillus rhamnosus 10,000 MMU CELLS/CAPSULE PO SCH ×2 (07:10→19:55)
[2021-10-04] MEDS: docusate sod 100mg capsule PO SCH ×2 (07:10→20:05)
[2021-10-04] MEDS: diltiazem CD 180mg cap (once-daily) PO SCH (07:10)
[2021-10-04] MEDS: sodium chloride 1gm tablet PO SCH ×4 (07:11→21:26)
[2021-10-04] MEDS: enoxaparin 40mg/0.4ml syringe SUBCUT SCH ×2 (07:11→19:55)
[2021-10-04] MEDS: cholecalciferol (vitamin D3) 1,000 unit (25mcg) tablet PO SCH (07:11)
[2021-10-04] MEDS: oxyCODONE SR 10mg (sust. release) tab PO SCH ×2 (07:11→19:46)
[2021-10-04] MEDS: HYDROchlorothiazide 25mg tablet PO SCH (07:11)
[2021-10-04] MEDS: ALPRAZolam 0.5mg tablet PO SCH ×4 (07:11→21:27)
[2021-10-04] MEDS: dextroamphetamine/amphetamine 5mg tablet PO SCH ×2 (07:12→13:35)
[2021-10-04] MEDS: fenofibrate 145mg tablet PO SCH (07:12)
[2021-10-04] MEDS: nystatin 15 GM powder TP SCH ×3 (07:12→21:27)
[2021-10-04] MEDS: lactose-reduced food (Ensure Enlive) - 237ml bottle PO SCH (07:22)
[2021-10-04] MEDS: insulin Lispro (HumaLOG) vial - multi-dose SQ SCH ×3 (08:37→18:54)
[2021-10-04 10:35] VITALS: BP 108/63
--- NOTE | 2021-10-04 13:47 | NUR ---
scanner on computer not working, checked all meds prior to admin
[2021-10-04 14:00] VITALS: BP 127/64
[2021-10-04 18:00] VITALS: BP 129/61
--- NOTE | 2021-10-04 18:09 | NUR ---
gave report to yeny oconnor
[2021-10-04] MEDS: guaiFENesin ER 600mg tablet PO SCH (21:26)
[2021-10-04 22:00] VITALS: BP 100/47
[2021-10-05 02:00] VITALS: BP 107/77
[2021-10-05] MEDS: metoclopramide 5 mg/ml inj IV SCH ×4 (02:29→19:14)
[2021-10-05] MEDS: HYDROcodone/acetaminophen 10/325mg tab PO PRN (02:30)
--- NOTE | 2021-10-05 06:42 | NUR ---
reported to days. noted pt resting and snoring w/o distress. anticipate oxygen trial and ordering home oxygen for patient today.
--- NOTE | 2021-10-05 06:48 | NUR ---
Patient in room ORTHO 4010. I have received report from Simba CASTELLANOS and had the opportunity to ask questions and assume patient care.
--- NOTE | 2021-10-05 07:10 | NUR ---
pt refused 0600 vitals
[2021-10-05] MEDS: lactose-reduced food (Ensure Enlive) - 237ml bottle PO SCH (07:41)
[2021-10-05 08:00] VITALS: BP 130/58
[2021-10-05] MEDS: K and/or MAG REPLACEMENT MC SCH ×2 (08:00→20:00)
[2021-10-05 08:10] LABS: BASOPHILS % (AUTO) 0.2 % (0-1); EOSINOPHILS % (AUTO) 0.1 % (0-6); HEMATOCRIT 36.2 % (35.0-45.0); HEMOGLOBIN 12.5 g/dl (12.0-16.0); LYMPHOCYTES # (AUTO) 0.9 X10'3 (1.1-4.8); LYMPHOCYTES % (AUTO) 9.2 % (21-51); MEAN CORPUSCULAR HEMOGLOBIN 31.6 PG (27.0-31.0); MEAN CORPUSCULAR HGB CONC 34.5 g/dL (33.0-36.5); MEAN CORPUSCULAR VOLUME 91.5 FL (78-98); MEAN PLATELET VOLUME 8.3 FL (7.4-10.4); MONOCYTES # (AUTO) 0.3 X10'3 (0-0.9); MONOCYTES % (AUTO) 3.2 % (2-12); NEUTROPHILS # (AUTO) 8.5 X10'3 (1.8-7.7); NEUTROPHILS % (AUTO) 87.3 % (42-75); PLATELET COUNT 239 X10'3 (140-440); RED BLOOD COUNT 3.96 X10'6 (4.20-5.60); RED CELL DISTRIBUTION WIDTH 13.9 % (11.5-14.5); WHITE BLOOD COUNT 9.7 X10'3 (4.5-11.0)
[2021-10-05] MEDS: guaiFENesin ER 600mg tablet PO SCH ×2 (08:24→19:14)
[2021-10-05] MEDS: lactobacillus rhamnosus 10,000 MMU CELLS/CAPSULE PO SCH ×2 (08:24→19:14)
[2021-10-05] MEDS: diltiazem CD 180mg cap (once-daily) PO SCH (08:24)
[2021-10-05] MEDS: docusate sod 100mg capsule PO SCH ×2 (08:24→19:14)
[2021-10-05] MEDS: HYDROchlorothiazide 25mg tablet PO SCH (08:24)
[2021-10-05] MEDS: sodium chloride 1gm tablet PO SCH ×4 (08:24→21:36)
[2021-10-05] MEDS: fenofibrate 145mg tablet PO SCH (08:25)
[2021-10-05] MEDS: cholecalciferol (vitamin D3) 1,000 unit (25mcg) tablet PO SCH (08:25)
[2021-10-05] MEDS: ALPRAZolam 0.5mg tablet PO SCH ×4 (08:25→21:36)
[2021-10-05] MEDS: duloxetine 30mg CAPSULE.DR PO SCH (08:25)
[2021-10-05] MEDS: enoxaparin 40mg/0.4ml syringe SUBCUT SCH ×2 (08:25→19:15)
[2021-10-05] MEDS: oxyCODONE SR 10mg (sust. release) tab PO SCH ×2 (08:26→19:14)
[2021-10-05 08:28] LABS: ALANINE AMINOTRANSFERASE 116 U/L (12-78); ALBUMIN 2.8 G/DL (3.4-5.0); ALBUMIN/GLOBULIN RATIO 0.6 (1.1-1.5); ALKALINE PHOSPHATASE 116 IU/L (46-116); ANION GAP 9 (8-16); ASPARTATE AMINO TRANSFERASE 27 U/L (10-37); BILIRUBIN,TOTAL 0.3 MG/DL (0.1-1.0); BLOOD UREA NITROGEN 17 MG/DL (7-18); BUN/CREATININE RATIO 24.6 (6.6-38.0); C-REACTIVE PROTEIN 2.67 MG/DL (0.0-0.5); CALCIUM 9.4 MG/DL (8.5-10.1); CHLORIDE 101 MMOL/L (99-107); CREATININE 0.69 MG/DL (0.40-0.90); GLUCOSE 153 MG/DL (70-104); LACTATE DEHYDROGENASE 379 U/L (81-234); PHOSPHORUS 2.9 MG/DL (2.3-4.5); POTASSIUM 4.2 MMOL/L (3.5-5.1); SODIUM 140 MMOL/L (135-145); TOTAL CARBON DIOXIDE 30.1 MMOL/L (24-32); TOTAL PROTEIN 7.4 G/DL (6.4-8.2); eGFR 86 ML/MIN
[2021-10-05] MEDS: dextroamphetamine/amphetamine 5mg tablet PO SCH ×2 (08:31→14:38)
[2021-10-05] MEDS: insulin Lispro (HumaLOG) vial - multi-dose SQ SCH ×3 (08:34→19:07)
[2021-10-05] MEDS: nystatin 15 GM powder TP SCH ×3 (08:48→21:00)
[2021-10-05 08:59] LABS: D-DIMER 0.54 MG/L FEU (0-0.50)
[2021-10-05] MEDS: benzocaine/menthol oral lozeng 1 EACH BOX MM PRN ×2 (09:49→13:20)
[2021-10-05 10:00] VITALS: BP 127/61
[2021-10-05 14:00] VITALS: BP 119/58
[2021-10-05 18:00] VITALS: BP 115/68
--- NOTE | 2021-10-05 18:47 | NUR ---
Patient in room ORTHO 4010. I have received report from FELIPE CASTELLANOS and had the opportunity to ask questions and assume patient care.
[2021-10-05 22:00] VITALS: BP 104/51
[2021-10-05] MEDS: guaiFENesin 200 MG/10 ML oral syrup UD cup PO PRN (23:52)
[2021-10-06 02:00] VITALS: BP 116/68
[2021-10-06] MEDS: metoclopramide 5 mg/ml inj IV SCH ×3 (02:00→13:46)
[2021-10-06 05:00] VITALS: BP 122/62
--- NOTE | 2021-10-06 06:25 | NUR ---
Patient in room ORTHO 4010. I have received report from Radha CASTELLANOS and had the opportunity to ask questions and assume patient care.
--- NOTE | 2021-10-06 06:30 | NUR ---
Problems reprioritized. Patient report given, questions answered & plan of care reviewed with FELIPE CASTELLANOS.
[2021-10-06] MEDS: K and/or MAG REPLACEMENT MC SCH ×2 (08:00→20:00)
[2021-10-06 08:16] LABS: BASOPHILS # (AUTO) 0.1 X10'3 (0-0.2); BASOPHILS % (AUTO) 0.7 % (0-1); EOSINOPHILS # (AUTO) 0.3 X10'3 (0-0.9); EOSINOPHILS % (AUTO) 3.4 % (0-6); HEMATOCRIT 34.7 % (35.0-45.0); HEMOGLOBIN 11.8 g/dl (12.0-16.0); LYMPHOCYTES # (AUTO) 1.5 X10'3 (1.1-4.8); LYMPHOCYTES % (AUTO) 18.5 % (21-51); MEAN CORPUSCULAR HEMOGLOBIN 31.3 PG (27.0-31.0); MEAN CORPUSCULAR HGB CONC 33.9 g/dL (33.0-36.5); MEAN CORPUSCULAR VOLUME 92.1 FL (78-98); MEAN PLATELET VOLUME 8.1 FL (7.4-10.4); MONOCYTES # (AUTO) 0.4 X10'3 (0-0.9); MONOCYTES % (AUTO) 5.3 % (2-12); NEUTROPHILS # (AUTO) 5.8 X10'3 (1.8-7.7); NEUTROPHILS % (AUTO) 72.1 % (42-75); PLATELET COUNT 250 X10'3 (140-440); RED BLOOD COUNT 3.76 X10'6 (4.20-5.60); RED CELL DISTRIBUTION WIDTH 14.3 % (11.5-14.5); WHITE BLOOD COUNT 8.1 X10'3 (4.5-11.0)
[2021-10-06] MEDS: enoxaparin 40mg/0.4ml syringe SUBCUT SCH ×2 (08:18→19:49)
[2021-10-06] MEDS: sodium chloride 1gm tablet PO SCH ×3 (08:19→17:14)
[2021-10-06] MEDS: duloxetine 30mg CAPSULE.DR PO SCH (08:19)
[2021-10-06] MEDS: diltiazem CD 180mg cap (once-daily) PO SCH (08:19)
[2021-10-06] MEDS: cholecalciferol (vitamin D3) 1,000 unit (25mcg) tablet PO SCH (08:19)
[2021-10-06] MEDS: oxyCODONE SR 10mg (sust. release) tab PO SCH ×2 (08:19→19:48)
[2021-10-06] MEDS: docusate sod 100mg capsule PO SCH ×2 (08:19→19:49)
[2021-10-06] MEDS: dextroamphetamine/amphetamine 5mg tablet PO SCH ×2 (08:19→14:38)
[2021-10-06] MEDS: lactobacillus rhamnosus 10,000 MMU CELLS/CAPSULE PO SCH ×2 (08:19→19:48)
[2021-10-06] MEDS: ALPRAZolam 0.5mg tablet PO SCH ×4 (08:19→22:24)
[2021-10-06] MEDS: guaiFENesin ER 600mg tablet PO SCH ×2 (08:19→19:49)
[2021-10-06] MEDS: fenofibrate 145mg tablet PO SCH (08:19)
[2021-10-06] MEDS: HYDROchlorothiazide 25mg tablet PO SCH (08:19)
[2021-10-06] MEDS: guaiFENesin 200 MG/10 ML oral syrup UD cup PO PRN (08:21)
[2021-10-06] MEDS: nystatin 15 GM powder TP SCH ×3 (08:21→21:00)
[2021-10-06] MEDS: lactose-reduced food (Ensure Enlive) - 237ml bottle PO SCH (08:29)
[2021-10-06] MEDS: insulin Lispro (HumaLOG) vial - multi-dose SQ SCH ×2 (08:52→19:46)
[2021-10-06 09:08] LABS: ALANINE AMINOTRANSFERASE 83 U/L (12-78); ALBUMIN 2.7 G/DL (3.4-5.0); ALBUMIN/GLOBULIN RATIO 0.7 (1.1-1.5); ALKALINE PHOSPHATASE 100 IU/L (46-116); ANION GAP 8 (8-16); ASPARTATE AMINO TRANSFERASE 30 U/L (10-37); BILIRUBIN,TOTAL 0.3 MG/DL (0.1-1.0); BLOOD UREA NITROGEN 23 MG/DL (7-18); BUN/CREATININE RATIO 29.5 (6.6-38.0); CALCIUM 9.1 MG/DL (8.5-10.1); CHLORIDE 103 MMOL/L (99-107); CREATININE 0.78 MG/DL (0.40-0.90); GLUCOSE 78 MG/DL (70-104); LACTATE DEHYDROGENASE 313 U/L (81-234); MAGNESIUM 1.9 MG/DL (1.5-2.4); PHOSPHORUS 3.1 MG/DL (2.3-4.5); POTASSIUM 3.9 MMOL/L (3.5-5.1); SODIUM 138 MMOL/L (135-145); TOTAL CARBON DIOXIDE 27.2 MMOL/L (24-32); TOTAL PROTEIN 6.8 G/DL (6.4-8.2); eGFR 75 ML/MIN
[2021-10-06 10:00] VITALS: BP 98/44
[2021-10-06] MEDS: benzocaine/menthol oral lozeng 1 EACH BOX MM PRN (10:44)
[2021-10-06 11:03] LABS: C-REACTIVE PROTEIN 1.18 MG/DL (0.0-0.5)
[2021-10-06 11:19] LABS: D-DIMER 0.62 MG/L FEU (0-0.50)
--- NOTE | 2021-10-06 11:53 | NUR ---
PAGER ID: [phone] MESSAGE: Carly [phone] - Re: Shoshana Franco. Pt has been getting Reglan since she was admitted. No apparent need. Can we DC?
[2021-10-06 14:00] VITALS: BP 107/62
--- NOTE | 2021-10-06 15:11 | NUR ---
PAGER ID: [phone] MESSAGE: Carly [phone] - Can we DC the Reglan for Shoshana Franco?
[2021-10-06] MEDS: HYDROcodone/acetaminophen 10/325mg tab PO PRN (15:56)
--- NOTE | 2021-10-06 17:20 | NUR ---
PAGER ID: [phone] MESSAGE: Carly [phone] - Shoshana Franco [phone] would like an ambien order for sleep. Also can we DC her Reglan?
[2021-10-06 18:00] VITALS: BP 124/71
--- NOTE | 2021-10-06 18:41 | NUR ---
Paged Dr. Saleh three times in effort to resolve a medication issue. No response from him.
--- NOTE | 2021-10-06 18:42 | NUR ---
Problems reprioritized. Patient report given, questions answered & plan of care reviewed with Radha CASTELLANOS.
--- NOTE | 2021-10-06 18:54 | NUR ---
Patient in room ORTHO 4010. I have received report from FELIPE CASTELLANOS and had the opportunity to ask questions and assume patient care.
[2021-10-06] MEDS ORDERED: metoclopramide 5 mg/ml inj IV PRN (21:35)
[2021-10-06 22:00] VITALS: BP 128/65
[2021-10-06] MEDS: Melatonin 3mg tablet PO SCH (22:24)
[2021-10-07] VITALS (7 sets, daily range): BP systolic 86–128; BP diastolic 53–78
[2021-10-07] MEDS: guaiFENesin 200 MG/10 ML oral syrup UD cup PO PRN ×3 (02:29→17:01)
--- NOTE | 2021-10-07 06:29 | NUR ---
Patient in room ORTHO 4010. I have received report from Radha CASTELLANOS and had the opportunity to ask questions and assume patient care.
--- NOTE | 2021-10-07 06:51 | NUR ---
Problems reprioritized. Patient report given, questions answered & plan of care reviewed with FELIPE CASTELLANOS.
[2021-10-07] MEDS: lactose-reduced food (Ensure Enlive) - 237ml bottle PO SCH ×2 (07:30→08:45)
[2021-10-07] MEDS: K and/or MAG REPLACEMENT MC SCH ×2 (08:00→20:00)
[2021-10-07 08:13] LABS: D-DIMER 0.67 MG/L FEU (0-0.50)
[2021-10-07 08:18] LABS: BASOPHILS % (AUTO) 0.8 % (0-1); EOSINOPHILS # (AUTO) 0.3 X10'3 (0-0.9); EOSINOPHILS % (AUTO) 4.7 % (0-6); HEMATOCRIT 37.6 % (35.0-45.0); HEMOGLOBIN 12.8 g/dl (12.0-16.0); LYMPHOCYTES % (AUTO) 17.2 % (21-51); MEAN CORPUSCULAR HEMOGLOBIN 31.6 PG (27.0-31.0); MEAN CORPUSCULAR HGB CONC 33.9 g/dL (33.0-36.5); MEAN CORPUSCULAR VOLUME 93.1 FL (78-98); MEAN PLATELET VOLUME 8.1 FL (7.4-10.4); MONOCYTES # (AUTO) 0.5 X10'3 (0-0.9); MONOCYTES % (AUTO) 7.8 % (2-12); NEUTROPHILS # (AUTO) 4.1 X10'3 (1.8-7.7); NEUTROPHILS % (AUTO) 69.5 % (42-75); PLATELET COUNT 261 X10'3 (140-440); RED BLOOD COUNT 4.04 X10'6 (4.20-5.60); RED CELL DISTRIBUTION WIDTH 14.7 % (11.5-14.5); WHITE BLOOD COUNT 5.9 X10'3 (4.5-11.0)
[2021-10-07 08:26] LABS: ALANINE AMINOTRANSFERASE 88 U/L (12-78); ALBUMIN 2.9 G/DL (3.4-5.0); ALBUMIN/GLOBULIN RATIO 0.6 (1.1-1.5); ALKALINE PHOSPHATASE 110 IU/L (46-116); ANION GAP 9 (8-16); ASPARTATE AMINO TRANSFERASE 36 U/L (10-37); BILIRUBIN,TOTAL 0.5 MG/DL (0.1-1.0); BLOOD UREA NITROGEN 18 MG/DL (7-18); C-REACTIVE PROTEIN 1.71 MG/DL (0.0-0.5); CALCIUM 9.4 MG/DL (8.5-10.1); CHLORIDE 100 MMOL/L (99-107); CREATININE 0.75 MG/DL (0.40-0.90); GLUCOSE 97 MG/DL (70-104); LACTATE DEHYDROGENASE 261 U/L (81-234); MAGNESIUM 1.7 MG/DL (1.5-2.4); PHOSPHORUS 3.7 MG/DL (2.3-4.5); POTASSIUM 3.8 MMOL/L (3.5-5.1); SODIUM 137 MMOL/L (135-145); TOTAL CARBON DIOXIDE 27.6 MMOL/L (24-32); TOTAL PROTEIN 7.4 G/DL (6.4-8.2); eGFR 78 ML/MIN
[2021-10-07] MEDS: fenofibrate 145mg tablet PO SCH (08:40)
[2021-10-07] MEDS: ALPRAZolam 0.5mg tablet PO SCH ×4 (08:40→21:22)
[2021-10-07] MEDS: duloxetine 30mg CAPSULE.DR PO SCH (08:40)
[2021-10-07] MEDS: cholecalciferol (vitamin D3) 1,000 unit (25mcg) tablet PO SCH (08:40)
[2021-10-07] MEDS: lactobacillus rhamnosus 10,000 MMU CELLS/CAPSULE PO SCH ×2 (08:40→19:22)
[2021-10-07] MEDS: HYDROchlorothiazide 25mg tablet PO SCH (08:40)
[2021-10-07] MEDS: guaiFENesin ER 600mg tablet PO SCH ×2 (08:40→19:22)
[2021-10-07] MEDS: apixaban 5mg tablet PO SCH ×2 (08:40→19:22)
[2021-10-07] MEDS: docusate sod 100mg capsule PO SCH ×2 (08:40→19:22)
[2021-10-07] MEDS: diltiazem CD 180mg cap (once-daily) PO SCH (08:41)
[2021-10-07] MEDS: oxyCODONE SR 10mg (sust. release) tab PO SCH ×2 (08:41→19:22)
[2021-10-07] MEDS: dextroamphetamine/amphetamine 5mg tablet PO SCH ×2 (08:42→14:08)
--- NOTE | 2021-10-07 08:42 | NUR ---
Reassessment: Pt continues eating well with mostly 100% PO intake of meals and Ensure Enlive QD. Currently on 6L oxygen via NC LBM 10/06 receiving routine colace. No nutrition intervention implemented at this time. Will continue to follow. Recommendations: 1. Continue carb controlled diet 2. Ensure Enlive QD 3. Encourage PO intake of meals 4. Bowel care per rx 5. Weekly scaled weights Addendum: 10/07/21 at [address] Amended: Links added.
[2021-10-07] MEDS: nystatin 15 GM powder TP SCH ×3 (08:45→21:23)
[2021-10-07] MEDS: insulin Lispro (HumaLOG) vial - multi-dose SQ SCH ×2 (09:21→19:21)
[2021-10-07] MEDS: HYDROcodone/acetaminophen 10/325mg tab PO PRN (16:52)
--- NOTE | 2021-10-07 18:34 | NUR ---
Problems reprioritized. Patient report given, questions answered & plan of care reviewed with Radha CASTELLANOS.
[2021-10-07] MEDS: Melatonin 3mg tablet PO SCH (21:22)
--- NOTE | 2021-10-07 22:24 | NUR ---
1800 Patient in room ORTHO 4010. I have received report from FELIPE and had the opportunity to ask questions and assume patient care.
[2021-10-08 02:00] VITALS: BP 125/65
[2021-10-08] MEDS: guaiFENesin 200 MG/10 ML oral syrup UD cup PO PRN ×2 (02:37→10:27)
[2021-10-08 06:00] VITALS: BP 120/70
--- NOTE | 2021-10-08 06:05 | NUR ---
received report from yeny valenzuela
--- NOTE | 2021-10-08 06:41 | NUR ---
Problems reprioritized. Patient report given, questions answered & plan of care reviewed with TRAVIS CASTELLANOS.
[2021-10-08] MEDS: oxyCODONE SR 10mg (sust. release) tab PO SCH ×2 (07:08→21:19)
[2021-10-08] MEDS: guaiFENesin ER 600mg tablet PO SCH ×2 (07:09→21:18)
[2021-10-08] MEDS: dextroamphetamine/amphetamine 5mg tablet PO SCH ×2 (07:09→14:15)
[2021-10-08] MEDS: duloxetine 30mg CAPSULE.DR PO SCH (07:09)
[2021-10-08] MEDS: fenofibrate 145mg tablet PO SCH (07:09)
[2021-10-08] MEDS: lactobacillus rhamnosus 10,000 MMU CELLS/CAPSULE PO SCH ×2 (07:09→21:18)
[2021-10-08] MEDS: apixaban 5mg tablet PO SCH ×2 (07:09→21:19)
[2021-10-08] MEDS: ALPRAZolam 0.5mg tablet PO SCH ×4 (07:09→21:19)
[2021-10-08] MEDS: HYDROchlorothiazide 25mg tablet PO SCH (07:09)
[2021-10-08] MEDS: nystatin 15 GM powder TP SCH ×3 (07:10→21:20)
[2021-10-08] MEDS: diltiazem CD 180mg cap (once-daily) PO SCH (07:10)
[2021-10-08] MEDS: cholecalciferol (vitamin D3) 1,000 unit (25mcg) tablet PO SCH (07:10)
[2021-10-08] MEDS: docusate sod 100mg capsule PO SCH ×2 (07:16→21:19)
[2021-10-08 07:18] LABS: BASOPHILS # (AUTO) 0.1 X10'3 (0-0.2); BASOPHILS % (AUTO) 0.9 % (0-1); EOSINOPHILS # (AUTO) 0.2 X10'3 (0-0.9); EOSINOPHILS % (AUTO) 3.7 % (0-6); HEMATOCRIT 40.1 % (35.0-45.0); LYMPHOCYTES # (AUTO) 1.3 X10'3 (1.1-4.8); LYMPHOCYTES % (AUTO) 20.7 % (21-51); MEAN CORPUSCULAR VOLUME 91.4 FL (78-98); MEAN PLATELET VOLUME 7.9 FL (7.4-10.4); MONOCYTES # (AUTO) 0.4 X10'3 (0-0.9); MONOCYTES % (AUTO) 6.4 % (2-12); NEUTROPHILS # (AUTO) 4.4 X10'3 (1.8-7.7); NEUTROPHILS % (AUTO) 68.3 % (42-75); PLATELET COUNT 284 X10'3 (140-440); RED BLOOD COUNT 4.39 X10'6 (4.20-5.60); RED CELL DISTRIBUTION WIDTH 14.5 % (11.5-14.5); WHITE BLOOD COUNT 6.5 X10'3 (4.5-11.0)
[2021-10-08 07:28] LABS: D-DIMER 0.46 MG/L FEU (0-0.50)
[2021-10-08 07:48] LABS: ALANINE AMINOTRANSFERASE 78 U/L (12-78); ALBUMIN 3.2 G/DL (3.4-5.0); ALBUMIN/GLOBULIN RATIO 0.7 (1.1-1.5); ALKALINE PHOSPHATASE 105 IU/L (46-116); ANION GAP 11 (8-16); ASPARTATE AMINO TRANSFERASE 36 U/L (10-37); BILIRUBIN,TOTAL 0.6 MG/DL (0.1-1.0); BLOOD UREA NITROGEN 13 MG/DL (7-18); BUN/CREATININE RATIO 18.3 (6.6-38.0); C-REACTIVE PROTEIN 1.72 MG/DL (0.0-0.5); CALCIUM 9.7 MG/DL (8.5-10.1); CHLORIDE 99 MMOL/L (99-107); CREATININE 0.71 MG/DL (0.40-0.90); GLUCOSE 128 MG/DL (70-104); LACTATE DEHYDROGENASE 274 U/L (81-234); MAGNESIUM 1.9 MG/DL (1.5-2.4); PHOSPHORUS 3.8 MG/DL (2.3-4.5); SODIUM 135 MMOL/L (135-145); TOTAL CARBON DIOXIDE 25.3 MMOL/L (24-32); TOTAL PROTEIN 7.9 G/DL (6.4-8.2); eGFR 83 ML/MIN
[2021-10-08] MEDS: K and/or MAG REPLACEMENT MC SCH ×2 (08:00→20:00)
[2021-10-08] MEDS: insulin Lispro (HumaLOG) vial - multi-dose SQ SCH ×2 (08:20→14:14)
[2021-10-08 10:00] VITALS: BP 105/73
[2021-10-08] MEDS: benzocaine/menthol oral lozeng 1 EACH BOX MM PRN (10:27)
--- NOTE | 2021-10-08 11:59 | NUR ---
patient report received from Elvira CASTELLANOS
--- NOTE | 2021-10-08 13:39 | NUR ---
PRESSURE ULCER EDUCATION: DEFINITION: A pressure ulcer is an area of skin that breaks down when you stay in one position too long. The constant pressure against the skin reduces the blood flow to that area and the affected tissue dies. CAUSES: "Being bedridden or in a wheelchair "Fragile skin "Having a chronic condition, such as diabetes or vascular disease "Inability to move certain parts of your body without assistance "Older age "Incontinence of urine or stool SYMPTOMS: "A reddened area that DOES NOT turn white when pressed on - this can be the beginning of a pressure ulcer "A blister, deep sore or a crater - these can be advanced pressure ulcers FIRST AID: "Relieve the pressure on this area "Keep the area clean and dry "Call your primary doctor if you see any of the above symptoms "DO NOT massage the area "DO NOT use a donut shaped or ring shaped pillow- these actually interfere with the blood flow and cause complications PREVENTION: "Check for pressure ulcers everyday "Change position at least every two hours to relieve pressure "Use items that help relieve pressure- pillows, sheepskin, foam padding, and powders. "Keep skin clean and dry "Eat healthy well balanced meals "Exercise daily IF YOU SEE ANY OF THESE SYMPTOMS WHILE IN THE HOSPITAL - TELL YOUR NURSE IMMEDIATELY. IF YOU SEE ANY OF THESE SYMPTOMS WHILE AT HOME OR HAVE ANY QUESTIONS OR CONCERNS ABOUT PRESSURE ULCERS - CALL YOUR PRIMARY DOCTOR IMMEDIATELY. Addendum: 10/08/21 at 1340 by Radha Chicas RN Amended: Links added.
[2021-10-08 14:00] VITALS: BP 97/63
--- NOTE | 2021-10-08 15:56 | NUR ---
materials handler: I have reviewed and agree with all interventions, assessments performed and documented by Elvira Poole RN.
[2021-10-08] MEDS ORDERED: QUET50TA24 PO (16:15)
--- NOTE | 2021-10-08 18:35 | NUR ---
Problems reprioritized. Patient report given, questions answered & plan of care reviewed with misti saini.
[2021-10-08] MEDS: Melatonin 3mg tablet PO SCH (21:18)
[2021-10-08 21:45] VITALS: BP 133/82
[2021-10-09 02:00] VITALS: BP 142/74
[2021-10-09] MEDS: HYDROcodone/acetaminophen 10/325mg tab PO PRN (02:33)
[2021-10-09 06:00] VITALS: BP 91/51
[2021-10-09] MEDS: docusate sod 100mg capsule PO SCH ×2 (08:00→20:00)
[2021-10-09] MEDS: K and/or MAG REPLACEMENT MC SCH ×2 (08:00→20:00)
[2021-10-09 08:04] LABS: BASOPHILS # (AUTO) 0.1 X10'3 (0-0.2); BASOPHILS % (AUTO) 0.9 % (0-1); EOSINOPHILS # (AUTO) 0.2 X10'3 (0-0.9); EOSINOPHILS % (AUTO) 3.8 % (0-6); HEMATOCRIT 40.8 % (35.0-45.0); LYMPHOCYTES # (AUTO) 1.3 X10'3 (1.1-4.8); LYMPHOCYTES % (AUTO) 25.2 % (21-51); MEAN CORPUSCULAR HEMOGLOBIN 31.4 PG (27.0-31.0); MEAN CORPUSCULAR HGB CONC 34.3 g/dL (33.0-36.5); MEAN CORPUSCULAR VOLUME 91.8 FL (78-98); MEAN PLATELET VOLUME 8.1 FL (7.4-10.4); MONOCYTES # (AUTO) 0.5 X10'3 (0-0.9); MONOCYTES % (AUTO) 9.4 % (2-12); NEUTROPHILS # (AUTO) 3.2 X10'3 (1.8-7.7); NEUTROPHILS % (AUTO) 60.7 % (42-75); PLATELET COUNT 310 X10'3 (140-440); RED BLOOD COUNT 4.45 X10'6 (4.20-5.60); RED CELL DISTRIBUTION WIDTH 14.3 % (11.5-14.5); WHITE BLOOD COUNT 5.3 X10'3 (4.5-11.0)
[2021-10-09 08:18] LABS: ALANINE AMINOTRANSFERASE 67 U/L (12-78); ALBUMIN 3.2 G/DL (3.4-5.0); ALBUMIN/GLOBULIN RATIO 0.7 (1.1-1.5); ALKALINE PHOSPHATASE 89 IU/L (46-116); ANION GAP 12 (8-16); ASPARTATE AMINO TRANSFERASE 24 U/L (10-37); BILIRUBIN,TOTAL 0.5 MG/DL (0.1-1.0); BLOOD UREA NITROGEN 13 MG/DL (7-18); BUN/CREATININE RATIO 18.6 (6.6-38.0); C-REACTIVE PROTEIN 1.33 MG/DL (0.0-0.5); CALCIUM 9.3 MG/DL (8.5-10.1); CHLORIDE 100 MMOL/L (99-107); GLUCOSE 100 MG/DL (70-104); LACTATE DEHYDROGENASE 230 U/L (81-234); MAGNESIUM 1.8 MG/DL (1.5-2.4); PHOSPHORUS 3.7 MG/DL (2.3-4.5); POTASSIUM 3.3 MMOL/L (3.5-5.1); SODIUM 139 MMOL/L (135-145); TOTAL CARBON DIOXIDE 26.7 MMOL/L (24-32); TOTAL PROTEIN 7.7 G/DL (6.4-8.2); eGFR 85 ML/MIN
[2021-10-09 08:23] LABS: D-DIMER 0.69 MG/L FEU (0-0.50)
[2021-10-09] MEDS: nystatin 15 GM powder TP SCH ×3 (08:25→20:11)
[2021-10-09] MEDS: lactose-reduced food (Ensure Enlive) - 237ml bottle PO SCH (08:26)
[2021-10-09] MEDS: diltiazem CD 180mg cap (once-daily) PO SCH (08:26)
[2021-10-09] MEDS: lactobacillus rhamnosus 10,000 MMU CELLS/CAPSULE PO SCH ×2 (08:27→20:10)
[2021-10-09] MEDS: dextroamphetamine/amphetamine 5mg tablet PO SCH ×2 (08:27→14:00)
[2021-10-09] MEDS: HYDROchlorothiazide 25mg tablet PO SCH (08:27)
[2021-10-09] MEDS: oxyCODONE SR 10mg (sust. release) tab PO SCH ×2 (08:27→20:10)
[2021-10-09] MEDS: apixaban 5mg tablet PO SCH ×2 (08:27→20:10)
[2021-10-09] MEDS: duloxetine 30mg CAPSULE.DR PO SCH (08:27)
[2021-10-09] MEDS: guaiFENesin ER 600mg tablet PO SCH ×2 (08:27→20:10)
[2021-10-09] MEDS: ALPRAZolam 0.5mg tablet PO SCH ×3 (08:28→20:09)
[2021-10-09] MEDS: cholecalciferol (vitamin D3) 1,000 unit (25mcg) tablet PO SCH (08:28)
[2021-10-09] MEDS: fenofibrate 145mg tablet PO SCH (08:28)
[2021-10-09 10:00] VITALS: BP 121/62
[2021-10-09] MEDS: guaiFENesin 200 MG/10 ML oral syrup UD cup PO PRN ×2 (10:18→17:05)
[2021-10-09] MEDS: benzocaine/menthol oral lozeng 1 EACH BOX MM PRN (10:18)
[2021-10-09] MEDS: acetaminophen 325mg tablet PO PRN ×2 (12:57→20:26)
[2021-10-09 14:00] VITALS: BP 108/54
--- NOTE | 2021-10-09 14:25 | NUR ---
PAGER ID: [phone] MESSAGE: [phone] Salvador when she takes all of her home meds her sats go down. AMRCO CATHERINE [id number]
[2021-10-09 18:00] VITALS: BP 116/67
[2021-10-09] MEDS: Melatonin 3mg tablet PO SCH (20:10)
[2021-10-09] MEDS: QUEtiapine 25mg tablet PO SCH (20:10)
[2021-10-09 22:00] VITALS: BP 104/40
[2021-10-10 06:00] VITALS: BP 99/50
[2021-10-10] MEDS: lactose-reduced food (Ensure Enlive) - 237ml bottle PO SCH (07:30)
[2021-10-10] MEDS: HYDROchlorothiazide 25mg tablet PO SCH (08:00)
[2021-10-10] MEDS: diltiazem CD 180mg cap (once-daily) PO SCH (08:00)
[2021-10-10] MEDS: nystatin 15 GM powder TP SCH ×3 (08:00→21:27)
[2021-10-10] MEDS: docusate sod 100mg capsule PO SCH ×3 (08:00→20:00)
[2021-10-10] MEDS: K and/or MAG REPLACEMENT MC SCH ×2 (08:00→20:00)
[2021-10-10] MEDS: fenofibrate 145mg tablet PO SCH (09:09)
[2021-10-10] MEDS: guaiFENesin ER 600mg tablet PO SCH ×2 (09:09→21:18)
[2021-10-10] MEDS: oxyCODONE SR 10mg (sust. release) tab PO SCH ×2 (09:09→21:19)
[2021-10-10] MEDS: ALPRAZolam 0.5mg tablet PO SCH ×3 (09:09→21:19)
[2021-10-10] MEDS: guaiFENesin 200 MG/10 ML oral syrup UD cup PO PRN ×2 (09:09→17:36)
[2021-10-10] MEDS: cholecalciferol (vitamin D3) 1,000 unit (25mcg) tablet PO SCH (09:10)
[2021-10-10] MEDS: apixaban 5mg tablet PO SCH ×2 (09:10→21:19)
[2021-10-10] MEDS: lactobacillus rhamnosus 10,000 MMU CELLS/CAPSULE PO SCH ×2 (09:10→21:18)
[2021-10-10] MEDS: duloxetine 30mg CAPSULE.DR PO SCH (09:10)
[2021-10-10 10:00] VITALS: BP 95/56
[2021-10-10] MEDS: insulin Lispro (HumaLOG) vial - multi-dose SQ SCH ×2 (13:44→18:34)
[2021-10-10 14:00] VITALS: BP 113/68
[2021-10-10] MEDS ORDERED: salt irrigation nasal spray 45 ML SPRAY NS PRN (14:15)
[2021-10-10] MEDS ORDERED: potassium CL 10mEq/100ml bag 100 ML IV PRN (17:35)
[2021-10-10] MEDS ORDERED: magnesium 4gm in 100ml NS 100 ML IV PRN (17:35)
[2021-10-10] MEDS ORDERED: potassium Cl 20 mEq SR tablet PO PRN (17:35)
[2021-10-10] MEDS ORDERED: magnesium Cl slow-release 64mg tablet PO PRN (17:35)
[2021-10-10 18:00] VITALS: BP 120/60
[2021-10-10] MEDS ORDERED: albuterol 2.5 MG/3 ML nebule NEB PRN (18:30)
[2021-10-10] MEDS: amox tr/potassium clavulanate 875/125mg TAB PO SCH (19:10)
[2021-10-10] MEDS ORDERED: iohexol 300mg/ml 100ml inj. ONE (19:24)
[2021-10-10] MEDS ORDERED: ipratropium/albuterol 3ml nebule NEB SCH (21:00)
[2021-10-10] MEDS: QUEtiapine 25mg tablet PO SCH (21:18)
[2021-10-10] MEDS: Melatonin 3mg tablet PO SCH (21:19)
[2021-10-10] MEDS: potassium Cl 20 mEq SR tablet PO PRN (21:27)
[2021-10-10 21:46] VITALS: BP 106/69
[2021-10-11] MEDS: potassium Cl 20 mEq SR tablet PO PRN (00:57)
[2021-10-11 01:55] VITALS: BP 113/76
[2021-10-11 06:00] VITALS: BP 108/68
--- NOTE | 2021-10-11 06:22 | NUR ---
Patient in room ORTHO 4010B. I have received report from JASMIN Serna and had the opportunity to ask questions and assume patient care.
--- NOTE | 2021-10-11 06:22 | NUR ---
Problems reprioritized. Patient report given, questions answered & plan of care reviewed with JASMIN QUIROZ.
[2021-10-11] MEDS: nystatin 15 GM powder TP SCH ×3 (07:52→19:41)
[2021-10-11] MEDS: lactose-reduced food (Ensure Enlive) - 237ml bottle PO SCH (07:53)
[2021-10-11] MEDS: fenofibrate 145mg tablet PO SCH (07:53)
[2021-10-11] MEDS: HYDROchlorothiazide 25mg tablet PO SCH (07:53)
[2021-10-11] MEDS: diltiazem CD 180mg cap (once-daily) PO SCH (07:53)
[2021-10-11] MEDS: cholecalciferol (vitamin D3) 1,000 unit (25mcg) tablet PO SCH (07:53)
[2021-10-11] MEDS: amox tr/potassium clavulanate 875/125mg TAB PO SCH ×2 (07:53→16:41)
[2021-10-11] MEDS: ALPRAZolam 0.5mg tablet PO SCH ×3 (07:53→19:40)
[2021-10-11] MEDS: duloxetine 30mg CAPSULE.DR PO SCH (07:53)
[2021-10-11] MEDS: oxyCODONE SR 10mg (sust. release) tab PO SCH ×2 (07:53→19:40)
[2021-10-11] MEDS: apixaban 5mg tablet PO SCH ×2 (07:53→19:40)
[2021-10-11] MEDS: guaiFENesin ER 600mg tablet PO SCH ×2 (07:53→19:40)
[2021-10-11] MEDS: lactobacillus rhamnosus 10,000 MMU CELLS/CAPSULE PO SCH ×2 (07:53→19:40)
[2021-10-11] MEDS: docusate sod 100mg capsule PO SCH ×3 (07:58→19:46)
[2021-10-11] MEDS: K and/or MAG REPLACEMENT MC SCH ×2 (08:00→19:45)
[2021-10-11] MEDS: guaiFENesin 200 MG/10 ML oral syrup UD cup PO PRN ×3 (08:20→22:10)
[2021-10-11 09:33] LABS: BASOPHILS % (AUTO) 0.5 % (0-1); EOSINOPHILS # (AUTO) 0.1 X10'3 (0-0.9); EOSINOPHILS % (AUTO) 2.8 % (0-6); HEMATOCRIT 38.4 % (35.0-45.0); HEMOGLOBIN 13.1 g/dl (12.0-16.0); LYMPHOCYTES # (AUTO) 1.2 X10'3 (1.1-4.8); LYMPHOCYTES % (AUTO) 24.2 % (21-51); MEAN CORPUSCULAR HEMOGLOBIN 31.6 PG (27.0-31.0); MEAN CORPUSCULAR HGB CONC 34.3 g/dL (33.0-36.5); MEAN CORPUSCULAR VOLUME 92.4 FL (78-98); MEAN PLATELET VOLUME 8.2 FL (7.4-10.4); MONOCYTES # (AUTO) 0.6 X10'3 (0-0.9); MONOCYTES % (AUTO) 12.5 % (2-12); PLATELET COUNT 394 X10'3 (140-440); RED BLOOD COUNT 4.15 X10'6 (4.20-5.60); RED CELL DISTRIBUTION WIDTH 14.7 % (11.5-14.5)
[2021-10-11 09:46] LABS: D-DIMER 0.39 MG/L FEU (0-0.50)
[2021-10-11 09:49] LABS: ALANINE AMINOTRANSFERASE 60 U/L (12-78); ALBUMIN 3.1 G/DL (3.4-5.0); ALBUMIN/GLOBULIN RATIO 0.7 (1.1-1.5); ALKALINE PHOSPHATASE 63 IU/L (46-116); ANION GAP 5 (8-16); ASPARTATE AMINO TRANSFERASE 30 U/L (10-37); BILIRUBIN,TOTAL 0.4 MG/DL (0.1-1.0); BLOOD UREA NITROGEN 11 MG/DL (7-18); BUN/CREATININE RATIO 14.7 (6.6-38.0); C-REACTIVE PROTEIN 1.21 MG/DL (0.0-0.5); CALCIUM 9.6 MG/DL (8.5-10.1); CHLORIDE 103 MMOL/L (99-107); CREATININE 0.75 MG/DL (0.40-0.90); GLUCOSE 90 MG/DL (70-104); POTASSIUM 4.2 MMOL/L (3.5-5.1); SODIUM 139 MMOL/L (135-145); TOTAL CARBON DIOXIDE 30.9 MMOL/L (24-32); TOTAL PROTEIN 7.4 G/DL (6.4-8.2); eGFR 78 ML/MIN
[2021-10-11 09:56] VITALS: BP 123/71
--- NOTE | 2021-10-11 12:05 | NUR ---
F/u 10/11: Pt PO significant decline past 4 days 59% avg meals and ~15% avg breakfast Ensure Enlive meeting estimated ~72% kcal and ~88% protein needs. Noted pt declined w/ worsening RUL infiltrate concerning for PNA per DO note. Pt at one point on 10L high flow though currently on 5L NC this AM per EMR. RD d/w RN PO capability; RN reports pt actually PO 100% Ensure this AM though had initially refused. LBM 10/08 w/ routine colace available though pt refusing. Will continue to monitor for further PO trends; if decreased intake persist may benefit from more routine ONS to assist meeting protein/kcal needs. Recommendations: 1. Continue carb controlled diet 2. Ensure Enlive QD; consider change to Ensure High Protein TID if PO meal intake remains marginal 3. Encourage PO intake of meals 4. Bowel care per rx 5. Weekly scaled weights Addendum: 10/11/21 at [address] Amended: Links added.
[2021-10-11] MEDS: benzocaine/menthol oral lozeng 1 EACH BOX MM PRN (13:24)
[2021-10-11 14:00] VITALS: BP 100/56
[2021-10-11 18:00] VITALS: BP 114/69
--- NOTE | 2021-10-11 18:15 | NUR ---
Problems reprioritized. Patient report given, questions answered & plan of care reviewed with JASMIN Marin.
[2021-10-11] MEDS: insulin Lispro (HumaLOG) vial - multi-dose SQ SCH (19:03)
[2021-10-11] MEDS: Melatonin 3mg tablet PO SCH ×2 (19:40→20:55)
[2021-10-11] MEDS: QUEtiapine 25mg tablet PO SCH (19:40)
[2021-10-12 02:00] VITALS: BP 101/56
[2021-10-12] MEDS: guaiFENesin 200 MG/10 ML oral syrup UD cup PO PRN ×3 (04:05→15:50)
[2021-10-12 06:00] VITALS: BP 98/37
[2021-10-12 06:28] LABS: BASOPHILS % (AUTO) 0.6 % (0-1); EOSINOPHILS # (AUTO) 0.1 X10'3 (0-0.9); EOSINOPHILS % (AUTO) 2.2 % (0-6); HEMATOCRIT 32.5 % (35.0-45.0); HEMOGLOBIN 11.4 g/dl (12.0-16.0); LYMPHOCYTES # (AUTO) 1.4 X10'3 (1.1-4.8); LYMPHOCYTES % (AUTO) 30.8 % (21-51); MEAN CORPUSCULAR VOLUME 91.5 FL (78-98); MONOCYTES # (AUTO) 0.6 X10'3 (0-0.9); MONOCYTES % (AUTO) 14.2 % (2-12); NEUTROPHILS # (AUTO) 2.4 X10'3 (1.8-7.7); NEUTROPHILS % (AUTO) 52.2 % (42-75); PLATELET COUNT 381 X10'3 (140-440); RED BLOOD COUNT 3.55 X10'6 (4.20-5.60); RED CELL DISTRIBUTION WIDTH 14.5 % (11.5-14.5); WHITE BLOOD COUNT 4.6 X10'3 (4.5-11.0)
[2021-10-12 06:42] LABS: D-DIMER 0.42 MG/L FEU (0-0.50)
[2021-10-12 06:43] LABS: ALANINE AMINOTRANSFERASE 43 U/L (12-78); ALBUMIN 2.8 G/DL (3.4-5.0); ALBUMIN/GLOBULIN RATIO 0.8 (1.1-1.5); ALKALINE PHOSPHATASE 56 IU/L (46-116); ANION GAP 6 (8-16); ASPARTATE AMINO TRANSFERASE 18 U/L (10-37); BILIRUBIN,TOTAL 0.3 MG/DL (0.1-1.0); BLOOD UREA NITROGEN 15 MG/DL (7-18); BUN/CREATININE RATIO 22.1 (6.6-38.0); C-REACTIVE PROTEIN 0.89 MG/DL (0.0-0.5); CALCIUM 9.3 MG/DL (8.5-10.1); CHLORIDE 105 MMOL/L (99-107); CREATININE 0.68 MG/DL (0.40-0.90); GLUCOSE 80 MG/DL (70-104); POTASSIUM 3.4 MMOL/L (3.5-5.1); SODIUM 142 MMOL/L (135-145); TOTAL PROTEIN 6.5 G/DL (6.4-8.2); eGFR 88 ML/MIN
[2021-10-12] MEDS: HYDROchlorothiazide 25mg tablet PO SCH (07:22)
[2021-10-12] MEDS: K and/or MAG REPLACEMENT MC SCH ×2 (07:22→20:00)
[2021-10-12] MEDS: diltiazem CD 180mg cap (once-daily) PO SCH (07:22)
[2021-10-12] MEDS: ALPRAZolam 0.5mg tablet PO SCH ×3 (07:26→21:01)
[2021-10-12] MEDS: lactobacillus rhamnosus 10,000 MMU CELLS/CAPSULE PO SCH ×2 (07:26→19:36)
[2021-10-12] MEDS: potassium Cl 20 mEq SR tablet PO PRN ×3 (07:26→20:58)
[2021-10-12] MEDS: guaiFENesin ER 600mg tablet PO SCH ×2 (07:26→19:36)
[2021-10-12] MEDS: cholecalciferol (vitamin D3) 1,000 unit (25mcg) tablet PO SCH (07:26)
[2021-10-12] MEDS: duloxetine 30mg CAPSULE.DR PO SCH (07:26)
[2021-10-12] MEDS: oxyCODONE SR 10mg (sust. release) tab PO SCH ×2 (07:26→19:37)
[2021-10-12] MEDS: apixaban 5mg tablet PO SCH ×2 (07:26→19:36)
[2021-10-12] MEDS: fenofibrate 145mg tablet PO SCH (07:26)
[2021-10-12] MEDS: docusate sod 100mg capsule PO SCH ×2 (07:27→19:36)
[2021-10-12] MEDS: amox tr/potassium clavulanate 875/125mg TAB PO SCH (07:31)
[2021-10-12] MEDS: lactose-reduced food (Ensure Enlive) - 237ml bottle PO SCH (07:37)
[2021-10-12] MEDS: nystatin 15 GM powder TP SCH ×3 (08:00→21:02)
[2021-10-12 10:00] VITALS: BP 119/45
[2021-10-12] MEDS ORDERED: levoFLOXACIN 750MG TABLET PO ONE (11:35)
[2021-10-12] MEDS: montelukast 10mg tablet PO SCH (12:26)
[2021-10-12] MEDS: diphenhydrAMINE 25 MG/10 ML UD oral solution PO PRN ×2 (12:37→21:12)
[2021-10-12 14:00] VITALS: BP 95/42
--- NOTE | 2021-10-12 14:09 | NUR ---
O2 Sat at rest on room air:_90__% If below 89%: Recovery O2 Sat at rest on ___LPM:___%:___% via (mask/nasal cannula, etc..) No further documentation is necessary. If O2 Sat did not drop below 89% on room air,ambulate patient on room air. O2 Sat while ambulating on room air:_86__% Recovery O2 Sat while ambulating on _4__LPM:__95_% No further documentation is necessary. If patient does not drop below 89% while ambulating, he/she does not qualify for home O2.
--- NOTE | 2021-10-12 14:27 | NUR ---
PAGER ID: [phone] MESSAGE: Saida [phone] Shoshanatiara KIMBROUGH sats dropped to 85% on 4 L while ambulating with PT . Maintained at 91% with 6 L. Jasbir just qualified her at 4 L but she only walked 10 ft.
--- NOTE | 2021-10-12 15:56 | NUR ---
pt is very angry with me, because I advised that Dr Barron said we would keep her another day. She states that we are "liars" and this is "B.S". I explained rationale, that due to new rash, change in abx, new pneumonia, and most importantly, oxygen demand are the reasons for delaying dc until she is more stable. I also explained that she is free to leave whenever she wants to however she shouldn't, because she still is requiring more oxygen than we can release her on. She told me to "just stop talking about it" is at the bedside and was present for the entire conversation.
[2021-10-12 18:00] VITALS: BP 115/57
--- NOTE | 2021-10-12 18:30 | NUR ---
Patient in room ORTHO 4010. I have received report from JASMIN Cintron and had the opportunity to ask questions and assume patient care.
[2021-10-12] MEDS: insulin Lispro (HumaLOG) vial - multi-dose SQ SCH (19:02)
[2021-10-12] MEDS: triamcinolone acet 0.1% cream 15gm TP SCH (20:00)
[2021-10-12] MEDS: Melatonin 3mg tablet PO SCH (21:01)
[2021-10-12] MEDS: QUEtiapine 25mg tablet PO SCH (21:02)
[2021-10-12 22:01] VITALS: BP 92/49
[2021-10-13 02:00] VITALS: BP 90/50
[2021-10-13] MEDS: guaiFENesin 200 MG/10 ML oral syrup UD cup PO PRN ×2 (02:59→09:23)
[2021-10-13] MEDS: diphenhydrAMINE 25 MG/10 ML UD oral solution PO PRN (03:16)
[2021-10-13 06:00] VITALS: BP 95/57
--- NOTE | 2021-10-13 06:29 | NUR ---
Problems reprioritized. Patient report given, questions answered & plan of care reviewed with JASMIN Cintron.
[2021-10-13] MEDS: ALPRAZolam 0.5mg tablet PO SCH ×2 (07:31→12:06)
[2021-10-13] MEDS: guaiFENesin ER 600mg tablet PO SCH (07:31)
[2021-10-13] MEDS: oxyCODONE SR 10mg (sust. release) tab PO SCH (07:31)
[2021-10-13] MEDS: fenofibrate 145mg tablet PO SCH (07:31)
[2021-10-13] MEDS: apixaban 5mg tablet PO SCH (07:31)
[2021-10-13] MEDS: montelukast 10mg tablet PO SCH (07:31)
[2021-10-13] MEDS: duloxetine 30mg CAPSULE.DR PO SCH (07:31)
[2021-10-13] MEDS: cholecalciferol (vitamin D3) 1,000 unit (25mcg) tablet PO SCH (07:32)
[2021-10-13] MEDS: lactobacillus rhamnosus 10,000 MMU CELLS/CAPSULE PO SCH (07:32)
[2021-10-13] MEDS: lactose-reduced food (Ensure Enlive) - 237ml bottle PO SCH (07:32)
[2021-10-13] MEDS: docusate sod 100mg capsule PO SCH (07:32)
[2021-10-13] MEDS: HYDROchlorothiazide 25mg tablet PO SCH (07:32)
[2021-10-13] MEDS: diltiazem CD 180mg cap (once-daily) PO SCH (07:32)
[2021-10-13] MEDS: nystatin 15 GM powder TP SCH ×2 (08:00→12:06)
[2021-10-13] MEDS: triamcinolone acet 0.1% cream 15gm TP SCH (08:00)
[2021-10-13] MEDS: K and/or MAG REPLACEMENT MC SCH (08:00)
[2021-10-13 09:15] LABS: BASOPHILS % (AUTO) 0.4 % (0-1); EOSINOPHILS # (AUTO) 0.2 X10'3 (0-0.9); HEMATOCRIT 33.1 % (35.0-45.0); HEMOGLOBIN 11.3 g/dl (12.0-16.0); LYMPHOCYTES # (AUTO) 1.3 X10'3 (1.1-4.8); LYMPHOCYTES % (AUTO) 25.5 % (21-51); MEAN CORPUSCULAR HEMOGLOBIN 31.8 PG (27.0-31.0); MEAN CORPUSCULAR HGB CONC 34.3 g/dL (33.0-36.5); MEAN CORPUSCULAR VOLUME 92.6 FL (78-98); MEAN PLATELET VOLUME 7.9 FL (7.4-10.4); MONOCYTES # (AUTO) 0.7 X10'3 (0-0.9); MONOCYTES % (AUTO) 14.2 % (2-12); NEUTROPHILS # (AUTO) 2.9 X10'3 (1.8-7.7); NEUTROPHILS % (AUTO) 56.9 % (42-75); PLATELET COUNT 441 X10'3 (140-440); RED BLOOD COUNT 3.57 X10'6 (4.20-5.60); RED CELL DISTRIBUTION WIDTH 14.7 % (11.5-14.5)
[2021-10-13 09:19] LABS: D-DIMER 0.38 MG/L FEU (0-0.50)
[2021-10-13 10:00] VITALS: BP 90/49
[2021-10-13 10:00] LABS: ALANINE AMINOTRANSFERASE 41 U/L (12-78); ALBUMIN 2.8 G/DL (3.4-5.0); ALBUMIN/GLOBULIN RATIO 0.7 (1.1-1.5); ALKALINE PHOSPHATASE 60 IU/L (46-116); ANION GAP 9 (8-16); ASPARTATE AMINO TRANSFERASE 26 U/L (10-37); BILIRUBIN,TOTAL 0.3 MG/DL (0.1-1.0); BLOOD UREA NITROGEN 13 MG/DL (7-18); BUN/CREATININE RATIO 15.5 (6.6-38.0); C-REACTIVE PROTEIN 1.24 MG/DL (0.0-0.5); CALCIUM 9.3 MG/DL (8.5-10.1); CHLORIDE 103 MMOL/L (99-107); CREATININE 0.84 MG/DL (0.40-0.90); GLUCOSE 110 MG/DL (70-104); POTASSIUM 4.2 MMOL/L (3.5-5.1); SODIUM 141 MMOL/L (135-145); TOTAL CARBON DIOXIDE 29.4 MMOL/L (24-32); TOTAL PROTEIN 6.7 G/DL (6.4-8.2); eGFR 69 ML/MIN
[2021-10-13] MEDS ORDERED: levoFLOXACIN 750MG TABLET PO SCH (11:00)
[2021-10-13] MEDS ORDERED: DILT180C66 PO (11:18)
[2021-10-13] MEDS ORDERED: LEVO750T46 PO (11:18)
[2021-10-13] MEDS ORDERED: APIX5TAB3 PO (11:18)
[2021-10-13] MEDS ORDERED: MONT-40 PO (11:18)
--- NOTE | 2021-10-13 11:52 | NUR ---
pt refused wound pics Addendum: 10/13/21 at 1153 by Maritza Patel RN Amended: Links added.
--- NOTE | 2021-10-13 13:42 | NUR ---
call to [employer] to find out about home o2 delivery. The answering service told me that the concrete truck driver was unavailable and that I should wait to release the patient until I speak to the concrete truck driver. I will let the patient know.
== END 2021-10-13 14:05 | disposition home or self-care (01) | DRG 177 ==
LOC: ER 12:29 → ED HOLD 18:13 → ORTHO 4S 09-10 08:00
PROVIDERS: ADMIT Internal Medicine; ATTEND Internal Medicine
PROC: XW033E5 Introduction of Remdesivir Anti-infective into Peripheral Vein, Percutaneous Approach, New Technology Group 5 (ICD-10-PCS; principal; 2021-09-09)
PROC: B32T1ZZ Computerized Tomography (CT Scan) of Left Pulmonary Artery using Low Osmolar Contrast (ICD-10-PCS; 2021-09-09)
PROC: B3201ZZ Computerized Tomography (CT Scan) of Thoracic Aorta using Low Osmolar Contrast (ICD-10-PCS; 2021-09-09)
PROC: B32S1ZZ Computerized Tomography (CT Scan) of Right Pulmonary Artery using Low Osmolar Contrast (ICD-10-PCS; 2021-09-09)
PROC: 5A0955A Assistance with Respiratory Ventilation, Greater than 96 Consecutive Hours, High Flow/Velocity Cannula (ICD-10-PCS; 2021-09-10)
PROC: 5A0955A Assistance with Respiratory Ventilation, Greater than 96 Consecutive Hours, High Flow/Velocity Cannula (ICD-10-PCS; 2021-09-17)
PROC: BW241ZZ Computerized Tomography (CT Scan) of Chest and Abdomen using Low Osmolar Contrast (ICD-10-PCS; 2021-10-10)
DX: U07.1 COVID-19 (principal); J12.82 Pneumonia due to coronavirus disease 2019; J96.01 Acute respiratory failure with hypoxia; G92.9 Unspecified toxic encephalopathy; L50.9 Urticaria, unspecified; E11.9 Type 2 diabetes mellitus without complications; E66.01 Morbid (severe) obesity due to excess calories; Z68.34 Body mass index [BMI] 34.0-34.9, adult; I10 Essential (primary) hypertension; G89.29 Other chronic pain; F41.9 Anxiety disorder, unspecified; M54.9 Dorsalgia, unspecified; Z96.659 Presence of unspecified artificial knee joint; I48.91 Unspecified atrial fibrillation; E78.5 Hyperlipidemia, unspecified; Z79.899 Other long term (current) drug therapy; Z88.5 Allergy status to narcotic agent; Z79.84 Long term (current) use of oral hypoglycemic drugs; Z87.01 Personal history of pneumonia (recurrent)
CPT/HCPCS: 36415; 36600; 71045; 71260; 71275; 80048; 80053; 81001; 82803; 82948; 83036; 83605; 83615; 83735; 83880; 84100; 84145; 84484; 85007; 85018; 85025; 85379; 86140; 87040; 87081; 87635; 93005; 94667; 94760; 96365; 96367; 96375; 97110; 97116; 97161; 97530; 97535; 99285; C9803; G0378; J0696; J1100; J1650; J1815; J2060; J2270; J2405; J2765; J2920; J2930; J3486; J7512; Q0163; Q9967

== ENCOUNTER 2021-10-16 09:53 | Inpatient (IN) | payer BC ==
[~2021-10-16] VITALS: Ht 170.2 cm; Wt 89.4 kg
[~2021-10-16 09:53] MED LIST: ALPR1TAB7 PO; APIX5TAB3 PO; CHOL500050 PO; DILT180C66 PO; DULO60CA65 PO; FENO145T26 PO; GLIP10TA11 PO; HYDR-3972 PO; HYDR25TA5 PO; LEVO750T46 PO; MONT-40 PO; OXYC60TA7 PO; QUET50TA24 PO
[2021-10-16] MEDS ORDERED: iohexol 350MG/ML 100ml bottle IV ONE (10:35)
[2021-10-16 11:11] LABS: BASOPHILS # (AUTO) 0.1 X10'3 (0-0.2); BASOPHILS % (AUTO) 0.6 % (0-1); EOSINOPHILS % (AUTO) 0.3 % (0-6); HEMATOCRIT 31.9 % (35.0-45.0); HEMOGLOBIN 11.2 g/dl (12.0-16.0); LYMPHOCYTES # (AUTO) 1.2 X10'3 (1.1-4.8); LYMPHOCYTES % (AUTO) 11.5 % (21-51); MEAN CORPUSCULAR HEMOGLOBIN 31.8 PG (27.0-31.0); MEAN CORPUSCULAR HGB CONC 35.2 g/dL (33.0-36.5); MEAN CORPUSCULAR VOLUME 90.5 FL (78-98); MEAN PLATELET VOLUME 7.9 FL (7.4-10.4); MONOCYTES # (AUTO) 1.2 X10'3 (0-0.9); MONOCYTES % (AUTO) 11.7 % (2-12); NEUTROPHILS # (AUTO) 7.6 X10'3 (1.8-7.7); NEUTROPHILS % (AUTO) 75.9 % (42-75); PLATELET COUNT 520 X10'3 (140-440); RED BLOOD COUNT 3.52 X10'6 (4.20-5.60); RED CELL DISTRIBUTION WIDTH 14.1 % (11.5-14.5)
[2021-10-16 12:26] LABS: ALANINE AMINOTRANSFERASE 71 U/L (12-78); ALBUMIN 2.9 G/DL (3.4-5.0); ALBUMIN/GLOBULIN RATIO 0.6 (1.1-1.5); ALKALINE PHOSPHATASE 92 IU/L (46-116); ASPARTATE AMINO TRANSFERASE 62 U/L (10-37); BILIRUBIN,TOTAL 1.3 MG/DL (0.1-1.0); BLOOD UREA NITROGEN 7 MG/DL (7-18); BUN/CREATININE RATIO 9.2 (6.6-38.0); CALCIUM 9.6 MG/DL (8.5-10.1); CREATININE 0.76 MG/DL (0.40-0.90); GLUCOSE 106 MG/DL (70-104); TOTAL CARBON DIOXIDE 27.4 MMOL/L (24-32); TOTAL PROTEIN 7.5 G/DL (6.4-8.2); eGFR 77 ML/MIN
[2021-10-16] MEDS ORDERED: aspirin 325mg tablet PO ONE (12:45)
[2021-10-16 12:53] LABS: ANION GAP 15 (8-16); CHLORIDE 94 MMOL/L (99-107); SODIUM 136 MMOL/L (135-145)
[2021-10-16 12:55] LABS: POTASSIUM 2.6 MMOL/L (3.5-5.1)
[2021-10-16] MEDS ORDERED: ipratropium/albuterol 3ml nebule NEB ONE (13:00)
--- NOTE | 2021-10-16 13:00 | NUR ---
notified dr seth regarding pt staus ,pt went to use bedside commode spo2 drop down to 72 .spo2 went up to 90 after 10 mins.as per md he will put in the orders for bipap.
[2021-10-16] MEDS ORDERED: magnesium 2GM in 50ml NS 50 ML IV ONE (13:30)
[2021-10-16] MEDS ORDERED: furosemide 10 MG/1 ML 10ml inj IV ONE (13:30)
[2021-10-16] MEDS ORDERED: potassium Cl 10 mEq/100mL bag IV ONE (13:30)
[2021-10-16] MEDS ORDERED: APIX5TAB3 PO (13:53)
[2021-10-16] MEDS ORDERED: LEVO750T46 PO (13:53)
[2021-10-16] MEDS ORDERED: DILT180C64 PO (13:53)
[2021-10-16] MEDS ORDERED: MONT-40 PO (13:53)
[2021-10-16] MEDS ORDERED: CefTRIAXone/D5W-Rocephin 1gm 50 ML IV ONE (14:15)
[2021-10-16] MEDS ORDERED: glucagon, human recombinant 1mg kit SUBCUT PRN (14:15)
[2021-10-16] MEDS ORDERED: azithromycin/NS 500mg/250ml 250 ML IV ONE (14:15)
[2021-10-16] MEDS ORDERED: dextrose 50%-water 50ml dispensing syringe IV PRN ×2 (14:15)
[2021-10-16] MEDS ORDERED: dextrose ORAL solution 15 GM/59 ML bottle PO PRN ×2 (14:15)
[2021-10-16] MEDS ORDERED: PERFLUTREN PROTEIN-A MICROSPHR (Optison) 0.22 MG/ML 3ML VIAL IV ONE (14:15)
[2021-10-16] MEDS ORDERED: MESSAGE TO PHARMACY PO ONE (14:15)
[2021-10-16] MEDS ORDERED: magnesium 4gm in 100ml NS 100 ML IV PRN (14:15)
[2021-10-16] MEDS ORDERED: albuterol 2.5 MG/3 ML nebule NEB PRN (14:15)
[2021-10-16] MEDS ORDERED: magnesium 2GM in 50ml NS 50 ML IV PRN (14:15)
[2021-10-16] MEDS ORDERED: potassium CL 10mEq/100ml bag 100 ML IV PRN (14:15)
[2021-10-16] MEDS ORDERED: mag hydrox/Alum hydrox/simeth 30ml oral suspension PO PRN (14:15)
[2021-10-16] MEDS: ipratropium/albuterol 3ml nebule NEB SCH ×2 (15:00→20:24)
[2021-10-16 15:26] LABS: MAGNESIUM 1.6 MG/DL (1.5-2.4)
[2021-10-16 15:28] LABS: POTASSIUM 2.5 MMOL/L (3.5-5.1)
[2021-10-16] MEDS ORDERED: OXYcodone (OXYCONTIN) Ext Release 15 MG TAB.SR.12H PO SCH (16:00)
[2021-10-16] MEDS: methylPREDNISolone sod succ/PF 40mg inj. IV SCH ×2 (16:49→23:37)
--- NOTE | 2021-10-16 17:06 | NUR ---
connie to Dr. Barron and made aware that saturation is 91% on 15L, said ok.
--- NOTE | 2021-10-16 17:06 | NUR ---
spoke with Dr. FRAGOSO requested to try bipap- saturation still 91 % on a non rebreather,patient agreeable.Also RN requested abg order.MD agreed.Patient placed on a pure wic.Spouse at bedside.
[2021-10-16] MEDS: ondansetron/PF 4mg/2ml inj IV PRN (17:11)
--- NOTE | 2021-10-16 17:31 | NUR ---
trop 6 hr 90.
--- NOTE | 2021-10-16 17:36 | NUR ---
notified dr saul that pt troponin is 90 ,as per no orders keep monitoring ,notified the primary nurse rodriguez.
[2021-10-16 17:58] LABS: ABG HCO3 24.9 mmol/L (22.0-26.0); ABG OXYGEN SATURATION 89.1 % (94-97); ALLEN'S TEST POSITIVE; FCOHb 0.5 % (0.0-3.9); FLOW 15 L/min; FO2Hb 88.7 % (94-97); PATIENT TEMPERATURE 36.7
[2021-10-16] MEDS: potassium Cl 20 mEq SR tablet PO PRN (18:01)
--- NOTE | 2021-10-16 18:07 | NUR ---
patient on a non rebreather and a salter.RT at bedside
[2021-10-16] MEDS: K and/or MAG REPLACEMENT MC SCH (18:40)
[2021-10-16 20:30] VITALS: BP 132/60
[2021-10-16] MEDS: insulin glargine (Lantus) pen - multi-dose SQ SCH (21:00)
[2021-10-16] MEDS: docusate sod 100mg capsule PO SCH (21:01)
[2021-10-16] MEDS: apixaban 5mg tablet PO SCH (21:02)
[2021-10-16] MEDS: QUEtiapine 25mg tablet PO SCH (21:02)
[2021-10-16 22:00] VITALS: BP 121/53
[2021-10-16] MEDS: ALPRAZolam 0.5mg tablet PO PRN (22:19)
[2021-10-16] MEDS: guaiFENesin/DM 10ml UD oral syrup PO PRN (23:37)
[2021-10-16] MEDS: oxyCODONE SR 10mg (sust. release) tab PO SCH (23:37)
[2021-10-17] VITALS (7 sets, daily range): BP systolic 103–134; BP diastolic 55–70
[2021-10-17 04:10] LABS: ABG BASE EXCESS 2.8 mmol/L (-2.0-2.0); ABG HCO3 28.3 mmol/L (22.0-26.0); ABG OXYGEN SATURATION 93.1 % (94-97); ABG PCO2 (T) 47.6 mmHg (32.0-45.0); ABG PO2 (T) 72.8 mmHg (75.0-100.0); ALLEN'S TEST Modified; FCOHb 0.5 % (0.0-3.9); FMetHb 0.1 % (0.0-1.5); FO2Hb 92.5 % (94-97); TOTAL HEMOGLOBIN 11.4 G/dl (12.0-16.0)
[2021-10-17] MEDS: potassium Cl 20 mEq SR tablet PO PRN ×2 (05:41→07:19)
[2021-10-17 06:41] LABS: BASOPHILS % (AUTO) 0.3 % (0-1); EOSINOPHILS % (AUTO) 0 % (0-6); HEMATOCRIT 29.9 % (35.0-45.0); HEMOGLOBIN 10.5 g/dl (12.0-16.0); LYMPHOCYTES # (AUTO) 0.8 X10'3 (1.1-4.8); LYMPHOCYTES % (AUTO) 7.4 % (21-51); MEAN CORPUSCULAR HEMOGLOBIN 31.7 PG (27.0-31.0); MEAN CORPUSCULAR HGB CONC 35.2 g/dL (33.0-36.5); MEAN CORPUSCULAR VOLUME 90.3 FL (78-98); MEAN PLATELET VOLUME 7.8 FL (7.4-10.4); MONOCYTES # (AUTO) 0.8 X10'3 (0-0.9); MONOCYTES % (AUTO) 7.2 % (2-12); NEUTROPHILS # (AUTO) 9.6 X10'3 (1.8-7.7); NEUTROPHILS % (AUTO) 85.1 % (42-75); PLATELET COUNT 497 X10'3 (140-440); RED BLOOD COUNT 3.31 X10'6 (4.20-5.60); RED CELL DISTRIBUTION WIDTH 14.7 % (11.5-14.5); WHITE BLOOD COUNT 11.2 X10'3 (4.5-11.0)
[2021-10-17 07:01] LABS: ALANINE AMINOTRANSFERASE 63 U/L (12-78); ALBUMIN 2.7 G/DL (3.4-5.0); ALBUMIN/GLOBULIN RATIO 0.5 (1.1-1.5); ALKALINE PHOSPHATASE 113 IU/L (46-116); ANION GAP 14 (8-16); ASPARTATE AMINO TRANSFERASE 48 U/L (10-37); BILIRUBIN,TOTAL 0.9 MG/DL (0.1-1.0); BLOOD UREA NITROGEN 10 MG/DL (7-18); BUN/CREATININE RATIO 11.9 (6.6-38.0); CALCIUM 9.7 MG/DL (8.5-10.1); CHLORIDE 93 MMOL/L (99-107); CREATININE 0.84 MG/DL (0.40-0.90); GLUCOSE 141 MG/DL (70-104); POTASSIUM 3.1 MMOL/L (3.5-5.1); SODIUM 137 MMOL/L (135-145); TOTAL CARBON DIOXIDE 29.8 MMOL/L (24-32); TOTAL PROTEIN 7.8 G/DL (6.4-8.2); eGFR 69 ML/MIN
[2021-10-17] MEDS: cholecalciferol (vitamin D3) 1,000 unit (25mcg) tablet PO SCH (07:17)
[2021-10-17] MEDS: docusate sod 100mg capsule PO SCH ×2 (07:17→20:59)
[2021-10-17] MEDS: HYDROchlorothiazide 25mg tablet PO SCH (07:18)
[2021-10-17] MEDS: diltiazem CD 180mg cap (once-daily) PO SCH (07:18)
[2021-10-17] MEDS: fenofibrate 145mg tablet PO SCH (07:18)
[2021-10-17] MEDS: duloxetine 30mg CAPSULE.DR PO SCH (07:18)
[2021-10-17] MEDS: apixaban 5mg tablet PO SCH ×2 (07:18→20:59)
[2021-10-17] MEDS: montelukast 10mg tablet PO SCH (07:19)
[2021-10-17] MEDS: azithromycin 250mg tablet PO SCH (07:19)
[2021-10-17] MEDS: methylPREDNISolone sod succ/PF 40mg inj. IV SCH ×2 (07:20→16:17)
[2021-10-17] MEDS: furosemide 10 MG/1 ML 10ml inj IV SCH (07:20)
[2021-10-17] MEDS: CefTRIAXone/D5W-Rocephin 1gm 50 ML IV SCH (07:20)
[2021-10-17] MEDS: oxyCODONE SR 10mg (sust. release) tab PO SCH ×2 (07:41→16:17)
[2021-10-17] MEDS: K and/or MAG REPLACEMENT MC SCH ×2 (08:00→20:00)
[2021-10-17] MEDS: ipratropium/albuterol 3ml nebule NEB SCH ×3 (08:02→19:48)
[2021-10-17] MEDS: guaiFENesin/DM 10ml UD oral syrup PO PRN ×2 (09:38→20:59)
--- NOTE | 2021-10-17 10:31 | NUR ---
Noted pt with T2DM, well controlled with A1c 7.0%. Written DM education with RD contact information placed in patient's chart. Will remain available. Addendum: 10/17/21 at [address] Amended: Links added.
--- NOTE | 2021-10-17 13:22 | NUR ---
PAGER ID: [phone] MESSAGE: [phone] munira cho- please advise kari CASTELLANOS [phone]
[2021-10-17] MEDS ORDERED: LORazepam 2 mg/ml vial IV PRN (13:30)
--- NOTE | 2021-10-17 13:30 | NUR ---
updated MD Saul about 3 min ago pt sats range 81% to 89% on 100% fio2 bipap and she says like " i can't do this anymore" , received orders , md saul says if need call a rapid. charge notified
--- NOTE | 2021-10-17 13:50 | NUR ---
pt refused ativan, says she will only take xanax." primary bran notified.
[2021-10-17] MEDS: ALPRAZolam 0.5mg tablet PO PRN (13:51)
--- NOTE | 2021-10-17 14:09 | NUR ---
MD Barron aware pt reports adverse reaction to ativan, orders for xanax clarified
--- NOTE | 2021-10-17 14:34 | NUR ---
follow up, pt calm relaxed, rr wnl, sat 94% on bipap
--- NOTE | 2021-10-17 18:21 | NUR ---
Problems reprioritized. Patient report given, questions answered & plan of care reviewed with Agustina CASTELLANOS.
[2021-10-17] MEDS: ALPRAZolam 0.5mg tablet PO SCH (20:59)
[2021-10-17] MEDS: QUEtiapine 25mg tablet PO SCH (21:02)
[2021-10-17] MEDS: insulin glargine (Lantus) pen - multi-dose SQ SCH (21:27)
[2021-10-18] MEDS: methylPREDNISolone sod succ/PF 40mg inj. IV SCH ×3 (00:35→15:33)
[2021-10-18 03:51] VITALS: BP 107/56
[2021-10-18 06:00] VITALS: BP 112/56
[2021-10-18] MEDS: acetaminophen 325mg tablet PO PRN (06:02)
--- NOTE | 2021-10-18 06:50 | NUR ---
Patient in room PCU 3019. I have received report from Agustina CASTELLANOS and had the opportunity to ask questions and assume patient care.
[2021-10-18 06:53] LABS: ALANINE AMINOTRANSFERASE 44 U/L (12-78); ALBUMIN 2.5 G/DL (3.4-5.0); ALBUMIN/GLOBULIN RATIO 0.5 (1.1-1.5); ALKALINE PHOSPHATASE 112 IU/L (46-116); ANION GAP 5 (8-16); ASPARTATE AMINO TRANSFERASE 28 U/L (10-37); BILIRUBIN,TOTAL 0.7 MG/DL (0.1-1.0); BLOOD UREA NITROGEN 21 MG/DL (7-18); BUN/CREATININE RATIO 28.8 (6.6-38.0); CALCIUM 9.8 MG/DL (8.5-10.1); CHLORIDE 91 MMOL/L (99-107); CREATININE 0.73 MG/DL (0.40-0.90); GLUCOSE 159 MG/DL (70-104); POTASSIUM 3.4 MMOL/L (3.5-5.1); SODIUM 133 MMOL/L (135-145); TOTAL CARBON DIOXIDE 37.1 MMOL/L (24-32); TOTAL PROTEIN 7.6 G/DL (6.4-8.2); eGFR 81 ML/MIN
[2021-10-18] MEDS: CefTRIAXone/D5W-Rocephin 1gm 50 ML IV SCH (07:22)
[2021-10-18] MEDS: furosemide 10 MG/1 ML 10ml inj IV SCH (07:25)
[2021-10-18 07:36] LABS: BASOPHILS % (AUTO) 0.1 % (0-1); EOSINOPHILS % (AUTO) 0 % (0-6); HEMATOCRIT 29.7 % (35.0-45.0); HEMOGLOBIN 10.3 g/dl (12.0-16.0); LYMPHOCYTES # (AUTO) 0.7 X10'3 (1.1-4.8); MEAN CORPUSCULAR HEMOGLOBIN 31.7 PG (27.0-31.0); MEAN CORPUSCULAR HGB CONC 34.8 g/dL (33.0-36.5); MEAN PLATELET VOLUME 7.9 FL (7.4-10.4); MONOCYTES # (AUTO) 0.9 X10'3 (0-0.9); MONOCYTES % (AUTO) 8.8 % (2-12); NEUTROPHILS % (AUTO) 84.1 % (42-75); PLATELET COUNT 524 X10'3 (140-440); RED BLOOD COUNT 3.26 X10'6 (4.20-5.60); RED CELL DISTRIBUTION WIDTH 14.9 % (11.5-14.5); WHITE BLOOD COUNT 10.7 X10'3 (4.5-11.0)
[2021-10-18] MEDS: duloxetine 30mg CAPSULE.DR PO SCH (07:43)
[2021-10-18] MEDS: azithromycin 250mg tablet PO SCH (07:43)
[2021-10-18] MEDS: montelukast 10mg tablet PO SCH (07:44)
[2021-10-18] MEDS: oxyCODONE SR 10mg (sust. release) tab PO SCH ×3 (07:44→15:33)
[2021-10-18] MEDS: apixaban 5mg tablet PO SCH ×2 (07:44→19:58)
[2021-10-18] MEDS: fenofibrate 145mg tablet PO SCH (07:46)
[2021-10-18] MEDS: HYDROchlorothiazide 25mg tablet PO SCH (07:46)
[2021-10-18] MEDS: ALPRAZolam 0.5mg tablet PO SCH ×3 (07:46→20:00)
[2021-10-18] MEDS: cholecalciferol (vitamin D3) 1,000 unit (25mcg) tablet PO SCH (07:46)
[2021-10-18] MEDS: diltiazem CD 180mg cap (once-daily) PO SCH (07:54)
[2021-10-18] MEDS: docusate sod 100mg capsule PO SCH ×2 (07:54→20:00)
[2021-10-18] MEDS: ipratropium/albuterol 3ml nebule NEB SCH ×3 (08:26→19:18)
[2021-10-18] MEDS: guaiFENesin/DM 10ml UD oral syrup PO PRN ×2 (09:35→19:59)
[2021-10-18] MEDS: ondansetron/PF 4mg/2ml inj IV PRN (10:06)
[2021-10-18] MEDS: K and/or MAG REPLACEMENT MC SCH ×2 (10:51→20:43)
[2021-10-18] MEDS: potassium Cl 20 mEq SR tablet PO PRN ×3 (10:52→20:43)
[2021-10-18 11:00] VITALS: BP 118/67
[2021-10-18 12:38] LABS: ABG BASE EXCESS 12.3 mmol/L (-2.0-2.0); ABG HCO3 37.5 mmol/L (22.0-26.0); ABG OXYGEN SATURATION 93.4 % (94-97); ABG PCO2 (T) 51.5 mmHg (32.0-45.0); ABG PO2 (T) 67.1 mmHg (75.0-100.0); ALLEN'S TEST POSITIVE; FCOHb 0.2 % (0.0-3.9); FMetHb 0.1 % (0.0-1.5); FO2Hb 93.1 % (94-97); TOTAL HEMOGLOBIN 11.6 G/dl (12.0-16.0)
--- NOTE | 2021-10-18 13:05 | NUR ---
Blood Sugar Pt. unable to eat due to patient unable to remove bipap without desatting; No insulin given due to the inability to eat; Will continue to monitor
[2021-10-18 15:00] VITALS: BP 127/67
--- NOTE | 2021-10-18 17:50 | NUR ---
Blood Sugar PAGER ID: [phone] MESSAGE: Dr. Boyd. Pt. in room 3019-Shoshana Falcon. blood sugars were 193 and 160. I was unable to cover her because she couldn't have the bipap off without desatting to 50's, even with 15L high flow. Thanks Donna U
[2021-10-18 18:00] VITALS: BP 124/84
--- NOTE | 2021-10-18 18:28 | NUR ---
Problems reprioritized. Patient report given to Agustina CASTELLANOS, questions answered & plan of care reviewed with Agustina. Pt. safe and stablew at time of change of shift.
[2021-10-18] MEDS ORDERED: glucagon, human recombinant 1mg kit SUBCUT PRN (18:50)
[2021-10-18] MEDS ORDERED: dextrose 50%-water 50ml dispensing syringe IV PRN ×2 (18:50)
[2021-10-18] MEDS ORDERED: insulin Lispro (HumaLOG) vial - multi-dose SQ SCH (18:50)
[2021-10-18] MEDS ORDERED: dextrose ORAL solution 15 GM/59 ML bottle PO PRN ×2 (18:50)
[2021-10-18] MEDS ORDERED: MESSAGE TO PHARMACY PO ONE (18:50)
[2021-10-18] MEDS: lactobacillus rhamnosus 10,000 MMU CELLS/CAPSULE PO SCH (20:00)
[2021-10-18] MEDS: QUEtiapine 25mg tablet PO SCH (20:04)
[2021-10-18] MEDS: insulin glargine (Lantus) pen - multi-dose SQ SCH ×2 (20:36→20:52)
[2021-10-18 22:00] VITALS: BP 101/55
[2021-10-19] VITALS (7 sets, daily range): BP systolic 93–132; BP diastolic 47–71
[2021-10-19] MEDS: methylPREDNISolone sod succ/PF 40mg inj. IV SCH ×3 (00:48→16:44)
[2021-10-19] MEDS: oxyCODONE SR 10mg (sust. release) tab PO SCH ×2 (00:49→08:00)
[2021-10-19 06:13] LABS: BASOPHILS % (AUTO) 0.4 % (0-1); EOSINOPHILS % (AUTO) 0 % (0-6); HEMATOCRIT 29.4 % (35.0-45.0); HEMOGLOBIN 10.2 g/dl (12.0-16.0); LYMPHOCYTES # (AUTO) 0.8 X10'3 (1.1-4.8); LYMPHOCYTES % (AUTO) 8.8 % (21-51); MEAN CORPUSCULAR HEMOGLOBIN 31.4 PG (27.0-31.0); MEAN CORPUSCULAR HGB CONC 34.7 g/dL (33.0-36.5); MEAN CORPUSCULAR VOLUME 90.5 FL (78-98); MEAN PLATELET VOLUME 7.5 FL (7.4-10.4); MONOCYTES # (AUTO) 0.7 X10'3 (0-0.9); MONOCYTES % (AUTO) 8.2 % (2-12); NEUTROPHILS # (AUTO) 7.5 X10'3 (1.8-7.7); NEUTROPHILS % (AUTO) 82.6 % (42-75); PLATELET COUNT 558 X10'3 (140-440); RED BLOOD COUNT 3.25 X10'6 (4.20-5.60); RED CELL DISTRIBUTION WIDTH 14.5 % (11.5-14.5); WHITE BLOOD COUNT 9.1 X10'3 (4.5-11.0)
[2021-10-19 06:45] LABS: ALANINE AMINOTRANSFERASE 32 U/L (12-78); ALBUMIN 2.4 G/DL (3.4-5.0); ALBUMIN/GLOBULIN RATIO 0.5 (1.1-1.5); ALKALINE PHOSPHATASE 101 IU/L (46-116); ANION GAP 2 (8-16); ASPARTATE AMINO TRANSFERASE 20 U/L (10-37); BILIRUBIN,TOTAL 0.5 MG/DL (0.1-1.0); BLOOD UREA NITROGEN 26 MG/DL (7-18); BUN/CREATININE RATIO 37.7 (6.6-38.0); CALCIUM 9.7 MG/DL (8.5-10.1); CHLORIDE 91 MMOL/L (99-107); CREATININE 0.69 MG/DL (0.40-0.90); GLUCOSE 177 MG/DL (70-104); POTASSIUM 3.6 MMOL/L (3.5-5.1); SODIUM 133 MMOL/L (135-145); TOTAL CARBON DIOXIDE 39.9 MMOL/L (24-32); TOTAL PROTEIN 7.5 G/DL (6.4-8.2); eGFR 86 ML/MIN
[2021-10-19] MEDS: furosemide 10 MG/1 ML 10ml inj IV SCH (07:49)
[2021-10-19] MEDS: CefTRIAXone/D5W-Rocephin 1gm 50 ML IV SCH (07:50)
[2021-10-19] MEDS: K and/or MAG REPLACEMENT MC SCH ×2 (08:00→20:00)
[2021-10-19] MEDS: docusate sod 100mg capsule PO SCH ×2 (08:00→20:04)
[2021-10-19] MEDS: guaiFENesin/DM 10ml UD oral syrup PO PRN ×3 (08:48→20:04)
[2021-10-19] MEDS: lactobacillus rhamnosus 10,000 MMU CELLS/CAPSULE PO SCH ×2 (08:49→20:04)
[2021-10-19] MEDS: azithromycin 250mg tablet PO SCH (08:49)
[2021-10-19] MEDS: montelukast 10mg tablet PO SCH (08:50)
[2021-10-19] MEDS: ALPRAZolam 0.5mg tablet PO SCH ×3 (08:50→20:04)
[2021-10-19] MEDS: diltiazem CD 180mg cap (once-daily) PO SCH (08:50)
[2021-10-19] MEDS: cholecalciferol (vitamin D3) 1,000 unit (25mcg) tablet PO SCH (08:50)
[2021-10-19] MEDS: duloxetine 30mg CAPSULE.DR PO SCH (08:50)
[2021-10-19] MEDS: fenofibrate 145mg tablet PO SCH (08:50)
[2021-10-19] MEDS: apixaban 5mg tablet PO SCH ×2 (08:50→20:05)
[2021-10-19] MEDS: insulin Lispro (HumaLOG) vial - multi-dose SQ SCH ×2 (09:00→13:34)
--- NOTE | 2021-10-19 09:30 | NUR ---
I discussed with Dr. Boyd about the dose of patient's Oxycontin 60mg total may be too much especially with the respiratory issue already. She agreed with me to hold on to giving it and she requested pharmacy to investigate how much patient really take and who is the prescriber. Will call our pharmacist to help Addendum: 10/19/21 at 0955 by Jenifer Houston RN Paged RT that patient is ready for breathing treatment
--- NOTE | 2021-10-19 09:55 | NUR ---
Dr. Boyd agreed to cut down on patient's dose of Oxycontin
[2021-10-19] MEDS: ipratropium/albuterol 3ml nebule NEB SCH ×3 (10:23→19:22)
--- NOTE | 2021-10-19 12:52 | NUR ---
Patient sleeping comfortably at this time. O2 sat 96% on CPAP. No sign of pain or distress
[2021-10-19] MEDS ORDERED: oxyCODONE SR 10mg (sust. release) tab PO SCH (13:00)
--- NOTE | 2021-10-19 14:21 | NUR ---
Patient awake, no sign of pain. at bedside.
--- NOTE | 2021-10-19 18:39 | NUR ---
Problems reprioritized. Patient report given, questions answered & plan of care reviewed with Radha CASTELLANOS.
[2021-10-19] MEDS: QUEtiapine 25mg tablet PO SCH (20:05)
[2021-10-19] MEDS: insulin glargine (Lantus) pen - multi-dose SQ SCH ×2 (21:00→21:27)
[2021-10-19] MEDS: oxyCODONE SR 10mg (sust. release) tab PO PRN (23:39)
[2021-10-19] MEDS: ondansetron/PF 4mg/2ml inj IV PRN (23:59)
[2021-10-20] MEDS: methylPREDNISolone sod succ/PF 40mg inj. IV SCH ×3 (00:01→16:23)
--- NOTE | 2021-10-20 06:17 | NUR ---
ABG ordered placed, Shan respiraty therapist was notified. Results still pending. Rehana VANG,RN
--- NOTE | 2021-10-20 06:20 | NUR ---
Patient in room PCU 3019. I have received report from JASMIN Patricio and had the opportunity to ask questions and assume patient care.
[2021-10-20 07:00] VITALS: BP 115/62
[2021-10-20 07:10] LABS: BASOPHILS % (AUTO) 0.2 % (0-1); EOSINOPHILS % (AUTO) 0 % (0-6); HEMATOCRIT 32.1 % (35.0-45.0); HEMOGLOBIN 11.1 g/dl (12.0-16.0); LYMPHOCYTES # (AUTO) 0.9 X10'3 (1.1-4.8); LYMPHOCYTES % (AUTO) 9.4 % (21-51); MEAN CORPUSCULAR HEMOGLOBIN 31.6 PG (27.0-31.0); MEAN CORPUSCULAR HGB CONC 34.6 g/dL (33.0-36.5); MEAN CORPUSCULAR VOLUME 91.5 FL (78-98); MEAN PLATELET VOLUME 7.7 FL (7.4-10.4); MONOCYTES # (AUTO) 0.7 X10'3 (0-0.9); MONOCYTES % (AUTO) 7.1 % (2-12); NEUTROPHILS # (AUTO) 7.7 X10'3 (1.8-7.7); NEUTROPHILS % (AUTO) 83.3 % (42-75); PLATELET COUNT 539 X10'3 (140-440); RED BLOOD COUNT 3.51 X10'6 (4.20-5.60); RED CELL DISTRIBUTION WIDTH 14.6 % (11.5-14.5); WHITE BLOOD COUNT 9.2 X10'3 (4.5-11.0)
[2021-10-20 07:43] LABS: ALANINE AMINOTRANSFERASE 27 U/L (12-78); ALBUMIN 2.4 G/DL (3.4-5.0); ALBUMIN/GLOBULIN RATIO 0.5 (1.1-1.5); ALKALINE PHOSPHATASE 94 IU/L (46-116); ANION GAP 6 (8-16); ASPARTATE AMINO TRANSFERASE 14 U/L (10-37); BILIRUBIN,TOTAL 0.4 MG/DL (0.1-1.0); BLOOD UREA NITROGEN 29 MG/DL (7-18); BUN/CREATININE RATIO 39.2 (6.6-38.0); CALCIUM 9.5 MG/DL (8.5-10.1); CHLORIDE 95 MMOL/L (99-107); CREATININE 0.74 MG/DL (0.40-0.90); GLUCOSE 186 MG/DL (70-104); POTASSIUM 3.6 MMOL/L (3.5-5.1); SODIUM 140 MMOL/L (135-145); TOTAL CARBON DIOXIDE 39.2 MMOL/L (24-32); TOTAL PROTEIN 7.1 G/DL (6.4-8.2); eGFR 79 ML/MIN
[2021-10-20] MEDS: K and/or MAG REPLACEMENT MC SCH ×2 (08:00→19:17)
[2021-10-20 08:09] LABS: PLATELET ESTIMATE INCREASED; TOTAL CELLS COUNTED 100
[2021-10-20 08:14] LABS: STOMATOCYTES 1+
[2021-10-20] MEDS: CefTRIAXone/D5W-Rocephin 1gm 50 ML IV SCH (08:31)
[2021-10-20] MEDS: ALPRAZolam 0.5mg tablet PO SCH ×3 (08:33→21:43)
[2021-10-20] MEDS: diltiazem CD 180mg cap (once-daily) PO SCH (08:33)
[2021-10-20] MEDS: docusate sod 100mg capsule PO SCH ×2 (08:33→21:44)
[2021-10-20] MEDS: azithromycin 250mg tablet PO SCH (08:33)
[2021-10-20] MEDS: lactobacillus rhamnosus 10,000 MMU CELLS/CAPSULE PO SCH ×2 (08:33→21:43)
[2021-10-20] MEDS: montelukast 10mg tablet PO SCH (08:33)
[2021-10-20] MEDS: cholecalciferol (vitamin D3) 1,000 unit (25mcg) tablet PO SCH (08:33)
[2021-10-20] MEDS: apixaban 5mg tablet PO SCH ×2 (08:34→21:43)
[2021-10-20] MEDS: furosemide 10 MG/1 ML 10ml inj IV SCH (08:36)
[2021-10-20] MEDS: duloxetine 30mg CAPSULE.DR PO SCH (08:46)
[2021-10-20] MEDS: fenofibrate 145mg tablet PO SCH (08:48)
[2021-10-20] MEDS: ipratropium/albuterol 3ml nebule NEB SCH ×3 (08:55→19:39)
[2021-10-20] MEDS: insulin Lispro (HumaLOG) vial - multi-dose SQ SCH ×2 (09:41→14:25)
[2021-10-20 11:00] VITALS: BP 121/59
[2021-10-20] MEDS: oxyCODONE SR 10mg (sust. release) tab PO PRN (11:06)
[2021-10-20] MEDS: guaiFENesin/DM 10ml UD oral syrup PO PRN ×2 (11:06→21:44)
[2021-10-20 12:22] LABS: ABG BASE EXCESS 16.9 mmol/L (-2.0-2.0); ABG HCO3 42.7 mmol/L (22.0-26.0); ABG OXYGEN SATURATION 94.2 % (94-97); ABG PCO2 (T) 56.2 mmHg (32.0-45.0); ABG PO2 (T) 68.8 mmHg (75.0-100.0); ALLEN'S TEST POSITIVE; FCOHb 0.3 % (0.0-3.9); FMetHb 0.3 % (0.0-1.5); FO2Hb 93.6 % (94-97); TOTAL HEMOGLOBIN 12.3 G/dl (12.0-16.0)
[2021-10-20 15:00] VITALS: BP 112/69
[2021-10-20 18:00] VITALS: BP 130/68
[2021-10-20] MEDS: acetaminophen 325mg tablet PO PRN (18:04)
[2021-10-20 21:00] VITALS: BP 153/73
[2021-10-20] MEDS: insulin glargine (Lantus) pen - multi-dose SQ SCH ×2 (21:00→21:48)
[2021-10-20] MEDS: QUEtiapine 25mg tablet PO SCH (21:43)
[2021-10-21] MEDS: methylPREDNISolone sod succ/PF 40mg inj. IV SCH ×3 (00:44→16:34)
[2021-10-21 02:00] VITALS: BP 126/66
[2021-10-21 06:00] VITALS: BP 106/65
--- NOTE | 2021-10-21 06:42 | NUR ---
Patient in room PCU 3019. I have received report from JASMIN Kimball and had the opportunity to ask questions and assume patient care.
[2021-10-21] MEDS: ipratropium/albuterol 3ml nebule NEB SCH ×3 (07:14→20:06)
[2021-10-21 07:19] LABS: BASOPHILS # (AUTO) 0.1 X10'3 (0-0.2); BASOPHILS % (AUTO) 0.4 % (0-1); EOSINOPHILS % (AUTO) 0 % (0-6); HEMATOCRIT 34.2 % (35.0-45.0); HEMOGLOBIN 11.9 g/dl (12.0-16.0); LYMPHOCYTES # (AUTO) 1.1 X10'3 (1.1-4.8); LYMPHOCYTES % (AUTO) 7.5 % (21-51); MEAN CORPUSCULAR HEMOGLOBIN 31.4 PG (27.0-31.0); MEAN CORPUSCULAR HGB CONC 34.8 g/dL (33.0-36.5); MEAN CORPUSCULAR VOLUME 90.3 FL (78-98); MEAN PLATELET VOLUME 7.6 FL (7.4-10.4); MONOCYTES # (AUTO) 0.9 X10'3 (0-0.9); MONOCYTES % (AUTO) 6.1 % (2-12); NEUTROPHILS # (AUTO) 13.2 X10'3 (1.8-7.7); PLATELET COUNT 551 X10'3 (140-440); RED BLOOD COUNT 3.78 X10'6 (4.20-5.60); RED CELL DISTRIBUTION WIDTH 14.7 % (11.5-14.5); WHITE BLOOD COUNT 15.4 X10'3 (4.5-11.0)
[2021-10-21 07:38] LABS: ALANINE AMINOTRANSFERASE 22 U/L (12-78); ALBUMIN 2.5 G/DL (3.4-5.0); ALBUMIN/GLOBULIN RATIO 0.5 (1.1-1.5); ALKALINE PHOSPHATASE 88 IU/L (46-116); ANION GAP 3 (8-16); ASPARTATE AMINO TRANSFERASE 10 U/L (10-37); BILIRUBIN,TOTAL 0.5 MG/DL (0.1-1.0); BLOOD UREA NITROGEN 28 MG/DL (7-18); BUN/CREATININE RATIO 41.2 (6.6-38.0); CALCIUM 9.3 MG/DL (8.5-10.1); CHLORIDE 95 MMOL/L (99-107); CREATININE 0.68 MG/DL (0.40-0.90); GLUCOSE 167 MG/DL (70-104); POTASSIUM 3.2 MMOL/L (3.5-5.1); SODIUM 138 MMOL/L (135-145); TOTAL PROTEIN 7.1 G/DL (6.4-8.2); eGFR 87 ML/MIN
[2021-10-21] MEDS: K and/or MAG REPLACEMENT MC SCH ×2 (08:00→20:00)
[2021-10-21] MEDS: guaiFENesin/DM 10ml UD oral syrup PO PRN ×2 (08:20→20:39)
[2021-10-21] MEDS: azithromycin 250mg tablet PO SCH (08:25)
[2021-10-21] MEDS: diltiazem CD 180mg cap (once-daily) PO SCH (08:26)
[2021-10-21] MEDS: docusate sod 100mg capsule PO SCH ×2 (08:26→20:32)
[2021-10-21] MEDS: fenofibrate 145mg tablet PO SCH (08:27)
[2021-10-21] MEDS: cholecalciferol (vitamin D3) 1,000 unit (25mcg) tablet PO SCH (08:27)
[2021-10-21] MEDS: furosemide 10 MG/1 ML 10ml inj IV SCH (08:29)
[2021-10-21] MEDS: CefTRIAXone/D5W-Rocephin 1gm 50 ML IV SCH (08:32)
[2021-10-21] MEDS: apixaban 5mg tablet PO SCH ×2 (08:33→20:31)
[2021-10-21] MEDS: ALPRAZolam 0.5mg tablet PO SCH ×3 (08:34→20:31)
[2021-10-21] MEDS: duloxetine 30mg CAPSULE.DR PO SCH (08:38)
[2021-10-21] MEDS: montelukast 10mg tablet PO SCH (08:38)
[2021-10-21] MEDS: lactobacillus rhamnosus 10,000 MMU CELLS/CAPSULE PO SCH ×2 (08:39→20:31)
[2021-10-21 09:56] LABS: PLATELET ESTIMATE INCREASED; TOTAL CELLS COUNTED 100
--- NOTE | 2021-10-21 10:47 | NUR ---
Initial: Pt admitted w/ worsening of acute respiratory failure s/p previous Covid PNA and new onset systolic heart failure per EMR. Pt currently on CPAP at 100% per documentation, desaturates easily and has difficulty w/ eating. Pt currently on EC7/HH/CCHO diet 1/5L fluid restriction w/ variable PO intake overall avg 33% x 12 meals which meets 39% of est energy needs and 47% of est protein needs. Pt may benefit from Ensure Enlive TID; pending physician approval. [facility] 10/16 receiving routine colace. Will continue to monitor and make recommendations as appropriate. Recs: 1. Continue EC7/CCHO diet as tolerated, remove Heart healthy if MD agreeable 2. Ensure Enlive TID; pending MD approval 3. Bowel care per rs 4. Scaled wt this admit, subsequent weekly wts Addendum: 10/21/21 at [address] Amended: Links added.
[2021-10-21 11:00] VITALS: BP 121/74
[2021-10-21] MEDS: lactose-reduced food (Ensure Enlive) - 237ml bottle PO SCH ×2 (13:00→20:31)
[2021-10-21] MEDS: acetaminophen 325mg tablet PO PRN ×3 (13:24→15:47)
[2021-10-21] MEDS: insulin Lispro (HumaLOG) vial - multi-dose SQ SCH (13:37)
[2021-10-21 15:00] VITALS: BP 96/48
--- NOTE | 2021-10-21 15:00 | NUR ---
Patient c/o chest pain EKG ordered per protocol. Dr. leong was notified by pager and person.
[2021-10-21 18:00] VITALS: BP 67/54
[2021-10-21] MEDS: QUEtiapine 25mg tablet PO SCH (20:31)
[2021-10-21] MEDS: insulin glargine (Lantus) pen - multi-dose SQ SCH ×2 (21:00→22:22)
[2021-10-21 22:00] VITALS: BP 118/73
[2021-10-22] MEDS: methylPREDNISolone sod succ/PF 40mg inj. IV SCH ×3 (01:28→15:55)
[2021-10-22 02:00] VITALS: BP 96/48
[2021-10-22 06:00] VITALS: BP 129/78
[2021-10-22] MEDS: CefTRIAXone/D5W-Rocephin 1gm 50 ML IV SCH (07:56)
[2021-10-22] MEDS: duloxetine 30mg CAPSULE.DR PO SCH (07:58)
[2021-10-22] MEDS: furosemide 10 MG/1 ML 10ml inj IV SCH (07:58)
[2021-10-22] MEDS: ALPRAZolam 0.5mg tablet PO SCH ×3 (07:58→19:49)
[2021-10-22] MEDS: diltiazem CD 180mg cap (once-daily) PO SCH (07:58)
[2021-10-22] MEDS: azithromycin 250mg tablet PO SCH (07:59)
[2021-10-22] MEDS: fenofibrate 145mg tablet PO SCH (07:59)
[2021-10-22] MEDS: montelukast 10mg tablet PO SCH (07:59)
[2021-10-22] MEDS: cholecalciferol (vitamin D3) 1,000 unit (25mcg) tablet PO SCH (07:59)
[2021-10-22] MEDS: apixaban 5mg tablet PO SCH ×2 (08:00→19:49)
[2021-10-22] MEDS: K and/or MAG REPLACEMENT MC SCH ×2 (08:00→20:00)
[2021-10-22] MEDS: lactobacillus rhamnosus 10,000 MMU CELLS/CAPSULE PO SCH ×2 (08:00→19:48)
[2021-10-22] MEDS: lactose-reduced food (Ensure Enlive) - 237ml bottle PO SCH ×3 (08:00→14:00)
[2021-10-22] MEDS: docusate sod 100mg capsule PO SCH ×2 (08:00→20:00)
[2021-10-22] MEDS: ipratropium/albuterol 3ml nebule NEB SCH ×3 (09:00→21:00)
[2021-10-22] MEDS: insulin Lispro (HumaLOG) vial - multi-dose SQ SCH ×2 (09:57→13:33)
--- NOTE | 2021-10-22 12:58 | NUR ---
Patient present Diarrhea X3, Dr. Blackmon was notified by pager. Also C/O chest pain. EKG per protocol will be performed.
[2021-10-22 15:00] VITALS: BP 98/75
[2021-10-22] MEDS: cefepime inj 2 GM in dextrose 5%-water 100 ML IV SCH (15:55)
[2021-10-22 18:00] VITALS: BP 115/51
[2021-10-22] MEDS: guaiFENesin/DM 10ml UD oral syrup PO PRN (18:14)
[2021-10-22] MEDS: QUEtiapine 25mg tablet PO SCH (19:49)
[2021-10-22] MEDS: insulin glargine (Lantus) pen - multi-dose SQ SCH ×2 (21:00)
[2021-10-22 22:00] VITALS: BP 85/59
[2021-10-23] MEDS: guaiFENesin/DM 10ml UD oral syrup PO PRN (00:10)
[2021-10-23] MEDS: oxyCODONE SR 10mg (sust. release) tab PO PRN ×3 (00:11→22:10)
[2021-10-23] MEDS: methylPREDNISolone sod succ/PF 40mg inj. IV SCH ×3 (00:11→16:44)
[2021-10-23] MEDS: cefepime inj 2 GM in dextrose 5%-water 100 ML IV SCH ×3 (00:11→16:44)
[2021-10-23 02:00] VITALS: BP 90/62
[2021-10-23 07:00] VITALS: BP 148/87
--- NOTE | 2021-10-23 07:08 | NUR ---
Patient in room PCU 3019. I have received report from ADÁN CASTELLANOS and had the opportunity to ask questions and assume patient care.
[2021-10-23] MEDS ORDERED: magnesium 4gm in 100ml NS 100 ML IV PRN (07:15)
[2021-10-23] MEDS ORDERED: magnesium Cl slow-release 64mg tablet PO PRN (07:15)
[2021-10-23] MEDS ORDERED: potassium Cl 40MEQ/1/2NS 520ml 520 ML IV PRN (07:15)
[2021-10-23] MEDS ORDERED: potassium Cl 20 mEq SR tablet PO PRN ×2 (07:15)
[2021-10-23] MEDS: docusate sod 100mg capsule PO SCH ×2 (07:19→19:37)
[2021-10-23] MEDS ORDERED: potassium CL 10mEq/100ml bag 100 ML IV PRN (07:20)
[2021-10-23] MEDS: ipratropium/albuterol 3ml nebule NEB SCH ×3 (07:47→20:24)
[2021-10-23] MEDS: K and/or MAG REPLACEMENT MC SCH ×2 (08:00→20:00)
[2021-10-23] MEDS: lactose-reduced food (Ensure Enlive) - 237ml bottle PO SCH ×3 (08:00→18:00)
--- NOTE | 2021-10-23 09:07 | NUR ---
Reassessment: Pt currently on CPAP at 100% per documentation, desaturates easily and has difficulty w/ eating. Pt currently on EC7/HH/CCHO diet 1/5L fluid restriction w/ variable PO intake overall avg 34% x 9 meals; ONS just began and pt has consumed 50%x 2 ONS, overall partially meeting needs. LBM 12/6 noted to be diarrhea, bowel care held. Will continue to monitor and make recommendations as appropriate. Recs: 1. Continue EC7/CCHO diet as tolerated, remove Heart healthy if MD agreeable 2. Ensure Enlive TID 3. Bowel care per rx 4. Scaled wt this admit, subsequent weekly wts Addendum: 10/23/21 at [address] Amended: Links added.
[2021-10-23] MEDS: furosemide 10 MG/1 ML 10ml inj IV SCH (09:17)
[2021-10-23] MEDS: cholecalciferol (vitamin D3) 1,000 unit (25mcg) tablet PO SCH (09:17)
[2021-10-23] MEDS: montelukast 10mg tablet PO SCH (09:18)
[2021-10-23] MEDS: ALPRAZolam 0.5mg tablet PO SCH ×3 (09:18→21:35)
[2021-10-23] MEDS: apixaban 5mg tablet PO SCH ×2 (09:18→21:35)
[2021-10-23] MEDS: lactobacillus rhamnosus 10,000 MMU CELLS/CAPSULE PO SCH ×2 (09:18→21:35)
[2021-10-23] MEDS: duloxetine 30mg CAPSULE.DR PO SCH (09:18)
[2021-10-23] MEDS: fenofibrate 145mg tablet PO SCH (09:18)
[2021-10-23] MEDS: diltiazem CD 180mg cap (once-daily) PO SCH (09:23)
[2021-10-23] MEDS: insulin Lispro (HumaLOG) vial - multi-dose SQ SCH ×2 (09:45→17:39)
[2021-10-23] MEDS: ondansetron/PF 4mg/2ml inj IV PRN (10:25)
--- NOTE | 2021-10-23 12:04 | NUR ---
PAGER ID: [phone] MESSAGE: Nancy [id number]. I need you to ask Dr Lacey to place a central line for Shoshana Corral for TPN because all the PICC nurses are on vacation this week. I called ICU and Veroniqeu advised me that Dr. Lacey would do it if YOU asked, not me. CIRAK
--- NOTE | 2021-10-23 15:04 | NUR ---
TPN consult: TC with RN who reports pt able to tolerate PO Ensure at this time so will not be pursuing TPN. TPN consult cancelled. Will continue to follow closely. Addendum: 10/23/21 at [address] Amended: Links added.
--- NOTE | 2021-10-23 16:13 | NUR ---
MESSAGE: Nancy [facility] [phone]. Pt Shoshana Franco 3019 is improving today. Bipap down to 70% and she is requesting sleep aid for tonight. She has Seroquel at 50 mg but wants 100 mg. Can we do anything more to help her sleep later? Michael, CIRAK
[2021-10-23] MEDS: HYDROcodone/acetaminophen 10/325mg tab PO PRN (16:45)
[2021-10-23 18:00] VITALS: BP 130/89
[2021-10-23] MEDS ORDERED: lactose-reduced food (Ensure Enlive) - 237ml bottle PO SCH (18:00)
--- NOTE | 2021-10-23 18:17 | NUR ---
Patient in room PCU 3019. I have received report from Nancy CASTELLANOS and had the opportunity to ask questions and assume patient care.
--- NOTE | 2021-10-23 18:18 | NUR ---
Problems reprioritized. Patient report given, questions answered & plan of care reviewed with Sondra CASTELLANOS.
--- NOTE | 2021-10-23 19:36 | NUR ---
Pgejose Boyd per increased heart rate of 180-190s. PAGER ID: [phone] MESSAGE: Re: Salvador Shoshana [phone], Pt has new onset of tachy running 180-190s. Please advise
--- NOTE | 2021-10-23 19:48 | NUR ---
Paged Dr Garcia PAGER ID: [phone] MESSAGE: Shoshana Kelly [phone], Pt having bursts of 180-200 HR. Please advise. Thank you
[2021-10-23] MEDS ORDERED: diltiazem-NS 100mg/100ml 100 ML IV SCH (20:00)
--- NOTE | 2021-10-23 20:00 | NUR ---
Radha started a cardizem drip @ 5ml in response to the high HR
--- NOTE | 2021-10-23 20:52 | NUR ---
Pg Dr. Garcia per pt request PAGER ID: [phone] MESSAGE: Shoshana Kelly [phone], has seroquel 50 mg, pt asking to increase to 100mg because that is what she takes at home. Let me know if we can increase it.
[2021-10-23] MEDS: insulin glargine (Lantus) pen - multi-dose SQ SCH ×3 (21:00→21:53)
[2021-10-23] MEDS: QUEtiapine 25mg tablet PO SCH (21:36)
[2021-10-23 22:00] VITALS: BP 122/75
[2021-10-24] VITALS (8 sets, daily range): BP systolic 112–157; BP diastolic 54–82
[2021-10-24] MEDS: methylPREDNISolone sod succ/PF 40mg inj. IV SCH ×3 (00:31→20:06)
--- NOTE | 2021-10-24 01:36 | NUR ---
Attempting new IV access to give Maxipime. Medication will be late.
--- NOTE | 2021-10-24 04:28 | NUR ---
Multiple iv attempts, Maxipime not given because cardizem drip is running until second IV completed.
--- NOTE | 2021-10-24 06:24 | NUR ---
Problems reprioritized. Patient report given, questions answered & plan of care reviewed with Aspen CASTELLANOS.
[2021-10-24 06:34] LABS: BASOPHILS # (AUTO) 0.1 X10'3 (0-0.2); BASOPHILS % (AUTO) 0.3 % (0-1); EOSINOPHILS % (AUTO) 0.1 % (0-6); HEMATOCRIT 41.6 % (35.0-45.0); HEMOGLOBIN 14.1 g/dl (12.0-16.0); LYMPHOCYTES # (AUTO) 1.6 X10'3 (1.1-4.8); LYMPHOCYTES % (AUTO) 6.2 % (21-51); MEAN CORPUSCULAR HEMOGLOBIN 30.9 PG (27.0-31.0); MEAN CORPUSCULAR HGB CONC 33.9 g/dL (33.0-36.5); MEAN CORPUSCULAR VOLUME 91.3 FL (78-98); MEAN PLATELET VOLUME 8.1 FL (7.4-10.4); MONOCYTES # (AUTO) 0.7 X10'3 (0-0.9); MONOCYTES % (AUTO) 2.8 % (2-12); NEUTROPHILS % (AUTO) 90.6 % (42-75); PLATELET COUNT 596 X10'3 (140-440); RED BLOOD COUNT 4.56 X10'6 (4.20-5.60)
[2021-10-24 06:44] LABS: WHITE BLOOD COUNT 26.4 X10'3 (4.5-11.0)
--- NOTE | 2021-10-24 07:04 | NUR ---
Patient in room PCU 3015. I have received report from Sondra Mtz RN and had the opportunity to ask questions and assume patient care. Pt semi folwers in bed with whole face Bipap in place with FIO2 at 80%. Cardizem running at 5 to pt's only IV. Per Sondra, RAMA shift charge and Sondra both tried for another IV but were unsuccessful at placing another. safety measures in place. no s/sx acute distress.
[2021-10-24 07:05] LABS: ANION GAP 6 (8-16); BILIRUBIN,TOTAL 0.5 MG/DL (0.1-1.0); BLOOD UREA NITROGEN 37 MG/DL (7-18); BUN/CREATININE RATIO 53.6 (6.6-38.0); C-REACTIVE PROTEIN 0.17 MG/DL (0.0-0.5); CALCIUM 9.8 MG/DL (8.5-10.1); CHLORIDE 95 MMOL/L (99-107); CREATININE 0.69 MG/DL (0.40-0.90); GLUCOSE 158 MG/DL (70-104); POTASSIUM 3.5 MMOL/L (3.5-5.1); SODIUM 138 MMOL/L (135-145); TOTAL PROTEIN 7.3 G/DL (6.4-8.2); eGFR 86 ML/MIN
[2021-10-24 07:06] LABS: ALANINE AMINOTRANSFERASE 19 U/L (12-78); ALBUMIN 2.8 G/DL (3.4-5.0); ALBUMIN/GLOBULIN RATIO 0.6 (1.1-1.5); ALKALINE PHOSPHATASE 78 IU/L (46-116); ASPARTATE AMINO TRANSFERASE 15 U/L (10-37)
[2021-10-24 07:53] LABS: TOTAL CELLS COUNTED 100
[2021-10-24 07:54] LABS: LARGE PLATELETS FEW; PLATELET ESTIMATE INCREASED
--- NOTE | 2021-10-24 07:56 | NUR ---
Critical WBC. Dr. Blackmon paged "PAGER ID: [phone] MESSAGE: RE: Shoshana Franco: CRITICAL WBC: 26.4. (previous 10/21: 15.4) VS stable. Emi #[id number]"
[2021-10-24] MEDS: ipratropium/albuterol 3ml nebule NEB SCH ×3 (07:58→19:49)
[2021-10-24] MEDS: lactose-reduced food (Ensure Enlive) - 237ml bottle PO SCH (08:00)
[2021-10-24] MEDS: K and/or MAG REPLACEMENT MC SCH ×2 (08:00→20:00)
--- NOTE | 2021-10-24 08:04 | NUR ---
Dr. Blackmon paged. "PAGER ID: [phone] MESSAGE: RE: AnaShoshana au: [phone]: Pt with only one IV that is running Cardizem. No Antibiotic given last night. unable to establish additional IV access. PICC or Central line? +/- TPN? -Aspen #[id number]"
--- NOTE | 2021-10-24 08:07 | NUR ---
IR paged regarding possible PICC placement.
--- NOTE | 2021-10-24 08:08 | NUR ---
PT CONTINUOUSLY TAKING BIPAP MASK OFF TO DRINK OR DOESN'T WANT IT ON, EDUCATED PT ONCE AGAIN ON RISK OF TAKING MASK OFF. SPOKE WITH DEVORAH CASTELLANOS AT BEDSIDE Addendum: 10/24/21 at 0810 by Bebe Pleitez RT Amended: Links added.
[2021-10-24] MEDS: furosemide 10 MG/1 ML 10ml inj IV SCH (08:39)
[2021-10-24] MEDS: ondansetron/PF 4mg/2ml inj IV PRN (08:41)
[2021-10-24] MEDS: lactobacillus rhamnosus 10,000 MMU CELLS/CAPSULE PO SCH ×2 (08:43→20:07)
[2021-10-24] MEDS: ALPRAZolam 0.5mg tablet PO SCH ×3 (08:43→20:06)
[2021-10-24] MEDS: montelukast 10mg tablet PO SCH (08:43)
[2021-10-24] MEDS: docusate sod 100mg capsule PO SCH ×2 (08:43→20:00)
[2021-10-24] MEDS: duloxetine 30mg CAPSULE.DR PO SCH (08:43)
[2021-10-24] MEDS: oxyCODONE SR 10mg (sust. release) tab PO PRN ×2 (08:43→22:10)
[2021-10-24] MEDS: fenofibrate 145mg tablet PO SCH (08:43)
[2021-10-24] MEDS: cholecalciferol (vitamin D3) 1,000 unit (25mcg) tablet PO SCH (08:44)
[2021-10-24] MEDS: apixaban 5mg tablet PO SCH (08:44)
--- NOTE | 2021-10-24 09:10 | NUR ---
Dr. Blackmon to the floor. discussed pt status. discussed pt critical WBC, only one line with cardizem running, abo missed dose last night and held dose this am due to lack of line for administration. Per Dr. Blackmon, PICC to place PICC line violeta and TPN needs to be visited. new order to stop cardizem IV gtt, start cardizem po. picc paged. "3019: Shoshana Franco: PICC line needed violeta. pt NPO/Bipap. Dr. Blackmon ordered PICC a couple days ago. Thank you so much, -[facility] #[id number]"
[2021-10-24] MEDS: cefepime inj 2 GM in dextrose 5%-water 100 ML IV SCH ×5 (10:38→23:40)
[2021-10-24] MEDS ORDERED: potassium Cl 20 mEq SR tablet PO PRN ×2 (12:40)
[2021-10-24] MEDS: K, MAG and/or Phos replacement - Verify level? MC SCH (12:40)
[2021-10-24] MEDS ORDERED: magnesium 4gm in 100ml NS 100 ML IV PRN (12:40)
[2021-10-24] MEDS ORDERED: magnesium Cl slow-release 64mg tablet PO PRN (12:40)
[2021-10-24] MEDS ORDERED: magnesium 2GM in 50ml NS 50 ML IV PRN (12:40)
--- NOTE | 2021-10-24 12:51 | NUR ---
TPN consult: TC with RN who reports pt desats with removal of BiPAP so pt unable to tolerate much PO intake or Corpak placement. Pt s/p PICC placement today per EMR. TPN recommendations have been d/w clinical pharmacist, see below. Pt to be NPO at this time per RN. LBM 10/23. Will continue to follow closely. Recommendations: 1) Continuous TPN per MD using 2:1 Clinimix-E 04/05 with 75 mL/hr goal rate with additional 250 mL lipids to run at 20.83 mL/hr for 12 hours on Tuesdays and Fridays. To provide 1800 mL total volume/day, 90 g AA, 360 g dext (2.94 mg/kg/min dext load), and average 1727 kcal/day with lipids 2) Prealbumin and TG q Friday/ 3) Daily scaled weights 4) PO diet advancement to heart healthy as medically indicated; Monitor need to resume Ensure Enlive TIDWM with resumption of PO diet 5) Routine bowel care Addendum: 10/24/21 at [address] Amended: Links added.
[2021-10-24 13:08] LABS: MAGNESIUM 2.5 MG/DL (1.5-2.4); PHOSPHORUS 4.9 MG/DL (2.3-4.5); PREALBUMIN 43.9 MG/DL (19-36); TRIGLYCERIDES 136 MG/DL (20-135)
[2021-10-24] MEDS ORDERED: Dextrose 10%-water IV solution 1,000 ML IV PRN (13:50)
[2021-10-24] MEDS ORDERED: diltiazem 30mg tablet PO SCH (14:00)
[2021-10-24] MEDS: HYDROcodone/acetaminophen 10/325mg tab PO PRN (14:19)
[2021-10-24] MEDS ORDERED: ZINC/COPPER/MANGANESE/SELENIUM 0.5 ML, chromic chloride inj. 5 MCG in AA 5%/CALCIUM/LYT... IV SCH (16:00)
--- NOTE | 2021-10-24 16:07 | NUR ---
Dr. Blackmon Paged, Pt tachycardic. "PAGER ID: [phone] MESSAGE: RE: Shoshana Franco 3019: HR 140-160. 60mg oral diltiazem given and HR has not come down after 2 hours. -[facility] #[id number]" Dr. Blackmon called immediately back and instructed nurse to restart pt back on cardizem gtt, d/c oral diltizem, hold eloquis tonight (due to picc line bleeding from biopatch.)
--- NOTE | 2021-10-24 16:08 | NUR ---
Per Dr. Blackmon: "yes it is ok to proceed and use the picc line even though it is bleeding. start the TPN and start the cardizem gtt."
[2021-10-24] MEDS: diltiazem-NS 100mg/100ml 100 ML IV SCH (17:48)
--- NOTE | 2021-10-24 18:37 | NUR ---
Problems reprioritized. Patient report given, questions answered & plan of care reviewed with Sondra Mtz RN. pt without s/sx acute distress
--- NOTE | 2021-10-24 18:47 | NUR ---
Patient in room PCU 3019. I have received report from Aspen CASTELLANOS and had the opportunity to ask questions and assume patient care.
[2021-10-24] MEDS: quetiapine 100mg tablet PO SCH (20:06)
[2021-10-24] MEDS: insulin regular, human U-100 3ml vial - multi-dose SQ SCH (20:22)
[2021-10-24] MEDS: insulin glargine (Lantus) pen - multi-dose SQ SCH (21:00)
[2021-10-25] VITALS (9 sets, daily range): BP systolic 107–140; BP diastolic 51–78
[2021-10-25] MEDS: insulin regular, human U-100 3ml vial - multi-dose SQ SCH ×4 (02:20→20:20)
--- NOTE | 2021-10-25 02:48 | NUR ---
Pt repositioned and linens/dry flows changed.
[2021-10-25] MEDS: HYDROcodone/acetaminophen 10/325mg tab PO PRN ×2 (04:22→17:12)
--- NOTE | 2021-10-25 05:24 | NUR ---
Pt was rounded on frequently throughout the night. In no apparent distress and was monitored per unit protocol.
--- NOTE | 2021-10-25 06:27 | NUR ---
Problems reprioritized. Patient report given, questions answered & plan of care reviewed with Aspen CASTELLANOS.
--- NOTE | 2021-10-25 06:30 | NUR ---
Patient in room PCU 3019. I have received report from Sondra Mtz RN and had the opportunity to ask questions and assume patient care. Pt semi fowlers in bed, CPAP/BIPAP mask in place. FIO2 @100%. Pt endorses wanting p.o. fluids. discussed with pt that p.o. fluids would be given with first p.o. medication to maintain as much NPO status as possible to facilitate pulmonary stability. pt acknowledged understanding. breathing even with mild dyspnea per baseline. no s/sx acute distress.
[2021-10-25] MEDS: K and/or MAG REPLACEMENT MC SCH ×2 (08:00→19:30)
[2021-10-25] MEDS: K, MAG and/or Phos replacement - Verify level? MC SCH (08:00)
[2021-10-25] MEDS: docusate sod 100mg capsule PO SCH ×2 (08:00→19:31)
[2021-10-25] MEDS: cefepime inj 2 GM in dextrose 5%-water 100 ML IV SCH ×2 (08:04→17:13)
[2021-10-25] MEDS: oxyCODONE SR 10mg (sust. release) tab PO PRN (08:07)
[2021-10-25] MEDS: duloxetine 30mg CAPSULE.DR PO SCH (08:07)
[2021-10-25] MEDS: furosemide 10 MG/1 ML 10ml inj IV SCH (08:07)
[2021-10-25] MEDS: cholecalciferol (vitamin D3) 1,000 unit (25mcg) tablet PO SCH (08:07)
[2021-10-25] MEDS: ALPRAZolam 0.5mg tablet PO SCH ×3 (08:08→20:00)
[2021-10-25] MEDS: fenofibrate 145mg tablet PO SCH (08:08)
[2021-10-25] MEDS: apixaban 5mg tablet PO SCH ×2 (08:09→19:32)
[2021-10-25] MEDS: lactobacillus rhamnosus 10,000 MMU CELLS/CAPSULE PO SCH ×2 (08:14→19:30)
[2021-10-25] MEDS: methylPREDNISolone sod succ/PF 40mg inj. IV SCH ×2 (08:14→19:32)
[2021-10-25] MEDS: montelukast 10mg tablet PO SCH (08:14)
[2021-10-25] MEDS: ipratropium/albuterol 3ml nebule NEB SCH ×3 (09:21→20:05)
[2021-10-25 13:08] LABS: BASOPHILS # (AUTO) 0.1 X10'3 (0-0.2); BASOPHILS % (AUTO) 0.4 % (0-1); EOSINOPHILS % (AUTO) 0 % (0-6); HEMATOCRIT 38.4 % (35.0-45.0); HEMOGLOBIN 12.9 g/dl (12.0-16.0); LYMPHOCYTES # (AUTO) 1.4 X10'3 (1.1-4.8); LYMPHOCYTES % (AUTO) 5.5 % (21-51); MEAN CORPUSCULAR HEMOGLOBIN 30.5 PG (27.0-31.0); MEAN CORPUSCULAR HGB CONC 33.5 g/dL (33.0-36.5); MEAN CORPUSCULAR VOLUME 91.1 FL (78-98); MEAN PLATELET VOLUME 8.5 FL (7.4-10.4); MONOCYTES % (AUTO) 3.8 % (2-12); NEUTROPHILS # (AUTO) 23.4 X10'3 (1.8-7.7); NEUTROPHILS % (AUTO) 90.3 % (42-75); PLATELET COUNT 495 X10'3 (140-440); RED BLOOD COUNT 4.22 X10'6 (4.20-5.60); RED CELL DISTRIBUTION WIDTH 15.1 % (11.5-14.5)
[2021-10-25 13:10] LABS: WHITE BLOOD COUNT 25.9 X10'3 (4.5-11.0)
[2021-10-25 13:14] LABS: ALANINE AMINOTRANSFERASE 18 U/L (12-78); ALBUMIN 2.9 G/DL (3.4-5.0); ALBUMIN/GLOBULIN RATIO 0.7 (1.1-1.5); ALKALINE PHOSPHATASE 69 IU/L (46-116); ANION GAP 4 (8-16); ASPARTATE AMINO TRANSFERASE 11 U/L (10-37); BILIRUBIN,TOTAL 0.6 MG/DL (0.1-1.0); BLOOD UREA NITROGEN 37 MG/DL (7-18); BUN/CREATININE RATIO 47.4 (6.6-38.0); CALCIUM 9.3 MG/DL (8.5-10.1); CHLORIDE 88 MMOL/L (99-107); CREATININE 0.78 MG/DL (0.40-0.90); GLUCOSE 166 MG/DL (70-104); MAGNESIUM 2.2 MG/DL (1.5-2.4); POTASSIUM 3.8 MMOL/L (3.5-5.1); PREALBUMIN 42.1 MG/DL (19-36); SODIUM 132 MMOL/L (135-145); TOTAL CARBON DIOXIDE 39.9 MMOL/L (24-32); TOTAL PROTEIN 7.1 G/DL (6.4-8.2); TRIGLYCERIDES 227 MG/DL (20-135); eGFR 75 ML/MIN
[2021-10-25] MEDS: diltiazem-NS 100mg/100ml 100 ML IV SCH (13:44)
[2021-10-25 14:18] LABS: TOTAL CELLS COUNTED 100
[2021-10-25 14:19] LABS: PLATELET ESTIMATE INCREASED
[2021-10-25 14:20] LABS: LARGE PLATELETS FEW
[2021-10-25] MEDS: ZINC/COPPER/MANGANESE/SELENIUM 0.5 ML, chromic chloride inj. 5 MCG in AA 5%/CALCIUM/LYT... IV SCH (16:34)
--- NOTE | 2021-10-25 18:22 | NUR ---
Problems reprioritized. Patient report given, questions answered & plan of care reviewed with Agustina CASTELLANOS .pt semi fowlers in bed, HF NC 02 @ 50LPM/95%. spo2 97%. no s/sx acute distress. cardizem running.
[2021-10-25] MEDS: quetiapine 100mg tablet PO SCH (20:00)
[2021-10-25] MEDS: insulin glargine (Lantus) pen - multi-dose SQ SCH (20:15)
[2021-10-26] MEDS: cefepime inj 2 GM in dextrose 5%-water 100 ML IV SCH ×3 (00:53→15:40)
[2021-10-26] MEDS: guaiFENesin/DM 10ml UD oral syrup PO PRN (02:01)
[2021-10-26] MEDS: insulin regular, human U-100 3ml vial - multi-dose SQ SCH ×4 (02:29→19:37)
[2021-10-26] MEDS: diltiazem-NS 100mg/100ml 100 ML IV SCH (02:58)
[2021-10-26] MEDS: HYDROcodone/acetaminophen 10/325mg tab PO PRN (05:02)
--- NOTE | 2021-10-26 06:30 | NUR ---
Patient in room PCU 3021. I have received report from goldie Tsai and had the opportunity to ask questions and assume patient care.
[2021-10-26 06:46] LABS: BASOPHILS # (AUTO) 0.1 X10'3 (0-0.2); BASOPHILS % (AUTO) 0.3 % (0-1); EOSINOPHILS % (AUTO) 0.1 % (0-6); HEMATOCRIT 36.8 % (35.0-45.0); HEMOGLOBIN 12.4 g/dl (12.0-16.0); LYMPHOCYTES # (AUTO) 1.5 X10'3 (1.1-4.8); LYMPHOCYTES % (AUTO) 6.3 % (21-51); MEAN CORPUSCULAR HEMOGLOBIN 30.7 PG (27.0-31.0); MEAN CORPUSCULAR HGB CONC 33.8 g/dL (33.0-36.5); MEAN CORPUSCULAR VOLUME 90.8 FL (78-98); MEAN PLATELET VOLUME 8.6 FL (7.4-10.4); MONOCYTES % (AUTO) 4.3 % (2-12); NEUTROPHILS # (AUTO) 21.5 X10'3 (1.8-7.7); PLATELET COUNT 430 X10'3 (140-440); RED BLOOD COUNT 4.05 X10'6 (4.20-5.60); RED CELL DISTRIBUTION WIDTH 15.4 % (11.5-14.5); WHITE BLOOD COUNT 24.1 X10'3 (4.5-11.0)
[2021-10-26 06:50] LABS: ALANINE AMINOTRANSFERASE 18 U/L (12-78); ALBUMIN 2.8 G/DL (3.4-5.0); ALBUMIN/GLOBULIN RATIO 0.7 (1.1-1.5); ALKALINE PHOSPHATASE 65 IU/L (46-116); ANION GAP 2 (8-16); ASPARTATE AMINO TRANSFERASE 14 U/L (10-37); BILIRUBIN,TOTAL 0.5 MG/DL (0.1-1.0); BLOOD UREA NITROGEN 31 MG/DL (7-18); CALCIUM 9.6 MG/DL (8.5-10.1); CHLORIDE 90 MMOL/L (99-107); CREATININE 0.66 MG/DL (0.40-0.90); GLUCOSE 127 MG/DL (70-104); MAGNESIUM 2.2 MG/DL (1.5-2.4); PHOSPHORUS 2.5 MG/DL (2.3-4.5); POTASSIUM 3.6 MMOL/L (3.5-5.1); SODIUM 131 MMOL/L (135-145); TOTAL CARBON DIOXIDE 38.9 MMOL/L (24-32); TOTAL PROTEIN 6.6 G/DL (6.4-8.2); eGFR 90 ML/MIN
[2021-10-26 07:00] VITALS: BP 134/68
[2021-10-26 07:39] LABS: LARGE PLATELETS FEW; PLATELET ESTIMATE NORMAL
[2021-10-26] MEDS: K and/or MAG REPLACEMENT MC SCH ×2 (08:00→20:00)
[2021-10-26] MEDS: docusate sod 100mg capsule PO SCH ×2 (08:00→20:00)
[2021-10-26] MEDS: K, MAG and/or Phos replacement - Verify level? MC SCH (08:00)
[2021-10-26] MEDS: ipratropium/albuterol 3ml nebule NEB SCH ×3 (08:47→19:45)
[2021-10-26 09:00] VITALS: BP 131/73
--- NOTE | 2021-10-26 10:00 | NUR ---
Pharmacist miguel a called and informed this nurse that no s/sx of refeeding syndrome AEB lab values, thus increase TPN to goal of 75/hr
[2021-10-26] MEDS: MVI, adult No.4 with vit. K 10 ML in dextrose 5% water 500ml 500 ML IV SCH ×2 (10:13)
[2021-10-26] MEDS: fenofibrate 145mg tablet PO SCH (10:17)
[2021-10-26] MEDS: cholecalciferol (vitamin D3) 1,000 unit (25mcg) tablet PO SCH (10:17)
[2021-10-26] MEDS: oxyCODONE SR 10mg (sust. release) tab PO PRN (10:18)
[2021-10-26] MEDS: montelukast 10mg tablet PO SCH (10:18)
[2021-10-26] MEDS: diltiazem 30mg tablet PO SCH ×3 (10:18→20:32)
[2021-10-26] MEDS: duloxetine 30mg CAPSULE.DR PO SCH (10:18)
[2021-10-26] MEDS: apixaban 5mg tablet PO SCH ×2 (10:18→20:37)
[2021-10-26] MEDS: furosemide 10 MG/1 ML 10ml inj IV SCH (10:19)
[2021-10-26] MEDS: methylPREDNISolone sod succ/PF 40mg inj. IV SCH ×2 (10:19→20:32)
[2021-10-26] MEDS: ALPRAZolam 0.5mg tablet PO SCH ×3 (10:21→20:32)
[2021-10-26] MEDS: lactobacillus rhamnosus 10,000 MMU CELLS/CAPSULE PO SCH ×2 (10:21→20:32)
[2021-10-26 11:00] VITALS: BP 151/68
--- NOTE | 2021-10-26 13:23 | NUR ---
Dr. Blackmon paged. spo2 82%. RT at bedside. "PAGER ID: [phone] MESSAGE: RE: munira cho: [phone]: spo2 82%. pt refusing bipap. RT is at bedside. pt on high flow plus non rebreather. -rosario #[phone]"
--- NOTE | 2021-10-26 13:25 | NUR ---
pt adamantly refusing bipap on face. RR 30, spo2 84%. RT at bedside. pt right respected.
[2021-10-26 15:00] VITALS: BP 124/59
--- NOTE | 2021-10-26 15:21 | NUR ---
Reassessment: TPN advanced to goal rate this morning. Noted electrolytes have decreased despite pt receiving electrolyte containing formula. Decrease in electrolytes likely not r/t refeeding as pt taking in PO intake prior to receiving TPN. Noted PO diet was advanced to heart healthy CHO controlled this morning, pending documentation of PO intake. TC to RN who reports pt consumed breakfast though was unable to consume lunch and MD would like to continue TPN at this time to ensure pt able to tolerate PO intake prior to discontinuing nutrition support. Noted pt on HFNC and refusing to wear BiPAP at this time per EMR. LBM 10/23 though pt documented with nausea and diarrhea per EMR. Pt with routine bowel care available though pt refuses at times per EMR. Will continue to follow closely and make recommendations as appropriate. Recommendations: 1) Continuous TPN per MD using 2:1 Clinimix-E 04/05 with 75 mL/hr goal rate with additional 250 mL lipids to run at 20.83 mL/hr for 12 hours on Tuesdays and Fridays. To provide 1800 mL total volume/day, 90 g AA, 360 g dext (2.94 mg/kg/min dext load), and average 1727 kcal/day with lipids 2) Prealbumin and TG q Friday/ 3) Daily scaled weights 4) Continue heart healthy CHO controlled diet; Monitor trends in PO intake and need to resume Ensure Enlive TIDWM 5) Wean TPN once pt able to consistently tolerate average PO intake greater than 65% of meals 6) Routine bowel care Addendum: 10/26/21 at [address] Amended: Links added.
[2021-10-26 18:00] VITALS: BP 145/68
--- NOTE | 2021-10-26 18:18 | NUR ---
Problems reprioritized. Patient report given, questions answered & plan of care reviewed with Agustina CASTELLANOS. Pt semi fowlers in bed, high flow 02 @ 60LPM/100% FIO2. with non rebreather supplement over nose and mouth. spo2: 90%. deep meaningful breaths encouraged. agustina notified of pt refusal of bipap during the day. safety measures in place. no s/sx acute distress.
[2021-10-26] MEDS: quetiapine 100mg tablet PO SCH (20:32)
[2021-10-26] MEDS: insulin glargine (Lantus) pen - multi-dose SQ SCH (21:00)
[2021-10-26 22:00] VITALS: BP 110/56
[2021-10-26] MEDS: ZINC/COPPER/MANGANESE/SELENIUM 0.5 ML, chromic chloride inj. 5 MCG in AA 5%/CALCIUM/LYT... IV SCH (23:04)
[2021-10-27] VITALS (22 sets, daily range): BP systolic 19–137; BP diastolic 52–86
[2021-10-27] MEDS ORDERED: morphine 4 MG/ML inj SYRINge ONE (00:37)
[2021-10-27] MEDS: cefepime inj 2 GM in dextrose 5%-water 100 ML IV SCH ×4 (01:19→23:54)
[2021-10-27 01:32] LABS: ABG BASE EXCESS 9.8 mmol/L (-2.0-2.0); ABG HCO3 33.2 mmol/L (22.0-26.0); ABG OXYGEN SATURATION 80.7 % (94-97); ABG PCO2 (T) 40.7 mmHg (32.0-45.0); ABG PO2 (T) 44.1 mmHg (75.0-100.0); ALLEN'S TEST Modified; FCOHb 0.7 % (0.0-3.9); FO2Hb 80.1 % (94-97); PATIENT TEMPERATURE 37.2; TOTAL HEMOGLOBIN 14.4 G/dl (12.0-16.0)
[2021-10-27] MEDS: insulin regular, human U-100 3ml vial - multi-dose SQ SCH ×4 (02:22→20:51)
[2021-10-27] MEDS: ondansetron/PF 4mg/2ml inj IV PRN (02:28)
[2021-10-27] MEDS: morphine 2 MG/ML inj. syringe IV PRN ×4 (02:28→21:05)
[2021-10-27] MEDS: diltiazem 30mg tablet PO SCH ×4 (03:12→20:00)
--- NOTE | 2021-10-27 03:41 | NUR ---
Patient in room PCU 3019. I have received report APPLICATION TECHNICIAN and had the opportunity to ask questions. Patent to be transferred to ICU bed, 2013
--- NOTE | 2021-10-27 03:50 | NUR ---
Patient arrived from PCU with RT and RN's at bedside. [facility] via slide board. Full Face CPAP in place. Patient appears anxious respiratory rate 30's. Patient lung sounds clear and equal, crepitus noted to anterior chest at clavicles and sternum. Patient c/o pain to back of head from CPAP mask band. Patient placed on air sampling and monitoring showing normal sinus rhythm at 88. Spo2 86-90% respiratory rate 28-32. Patient with radial and pedal pulses present. Patient is able to move all extremities. Patients in waiting room. Dr. Lindsey called will see patient via tele medicine.
[2021-10-27] MEDS: dexmedetomidin/NS 400mcg/100ml 100 ML IV SCH ×3 (04:47→19:25)
[2021-10-27 05:42] LABS: BASOPHILS # (AUTO) 0.2 X10'3 (0-0.2); BASOPHILS % (AUTO) 0.4 % (0-1); EOSINOPHILS % (AUTO) 0.1 % (0-6); HEMATOCRIT 39.7 % (35.0-45.0); HEMOGLOBIN 13.2 g/dl (12.0-16.0); LYMPHOCYTES # (AUTO) 1.2 X10'3 (1.1-4.8); LYMPHOCYTES % (AUTO) 2.6 % (21-51); MEAN CORPUSCULAR HEMOGLOBIN 30.3 PG (27.0-31.0); MEAN CORPUSCULAR HGB CONC 33.3 g/dL (33.0-36.5); MEAN PLATELET VOLUME 9.1 FL (7.4-10.4); MONOCYTES # (AUTO) 2.5 X10'3 (0-0.9); MONOCYTES % (AUTO) 5.4 % (2-12); NEUTROPHILS # (AUTO) 42.2 X10'3 (1.8-7.7); NEUTROPHILS % (AUTO) 91.5 % (42-75); PLATELET COUNT 464 X10'3 (140-440); RED BLOOD COUNT 4.36 X10'6 (4.20-5.60); RED CELL DISTRIBUTION WIDTH 14.8 % (11.5-14.5)
[2021-10-27 05:53] LABS: WHITE BLOOD COUNT 46.1 X10'3 (4.5-11.0)
--- NOTE | 2021-10-27 06:00 | NUR ---
Patient in room CICU 2013. I have received report from Cecilia CASTELLANOS and had the opportunity to ask questions and assume patient care.
[2021-10-27 06:07] LABS: ALANINE AMINOTRANSFERASE 19 U/L (12-78); ALBUMIN 2.9 G/DL (3.4-5.0); ALBUMIN/GLOBULIN RATIO 0.7 (1.1-1.5); ALKALINE PHOSPHATASE 71 IU/L (46-116); ANION GAP 7 (8-16); ASPARTATE AMINO TRANSFERASE 30 U/L (10-37); BILIRUBIN,TOTAL 0.5 MG/DL (0.1-1.0); BLOOD UREA NITROGEN 27 MG/DL (7-18); BUN/CREATININE RATIO 43.5 (6.6-38.0); CALCIUM 9.8 MG/DL (8.5-10.1); CHLORIDE 93 MMOL/L (99-107); CREATININE 0.62 MG/DL (0.40-0.90); GLUCOSE 211 MG/DL (70-104); SODIUM 135 MMOL/L (135-145); TOTAL CARBON DIOXIDE 35.2 MMOL/L (24-32); TOTAL PROTEIN 7.1 G/DL (6.4-8.2); eGFR > 90 ML/MIN
[2021-10-27 06:15] LABS: ANISOCYTOSIS 1+; CREATINE KINASE 51 U/L (26-192); LARGE PLATELETS FEW; MAGNESIUM 2.1 MG/DL (1.5-2.4); NUCLEATED RED BLOOD CELLS 1 /100WBC (0-0); PHOSPHORUS 2.4 MG/DL (2.3-4.5); PLATELET ESTIMATE INCREASED; TOTAL CELLS COUNTED 100
[2021-10-27 06:18] LABS: POTASSIUM 3.7 MMOL/L (3.5-5.1)
--- NOTE | 2021-10-27 06:46 | NUR ---
Problems reprioritized. Patient report given, questions answered & plan of care reviewed with JASMIN Ling.
[2021-10-27] MEDS: furosemide 10 MG/1 ML 10ml inj IV SCH (07:44)
--- NOTE | 2021-10-27 07:45 | NUR ---
lab at bedside, blood cultures drawn before cefepime dose given. Pt unable to tolerate removal of bipap mask, unable to give her 8 am medications, will discuss with MD during rounds alternatives
[2021-10-27] MEDS: methylPREDNISolone sod succ/PF 40mg inj. IV SCH ×2 (07:55→20:30)
[2021-10-27] MEDS: lactobacillus rhamnosus 10,000 MMU CELLS/CAPSULE PO SCH ×2 (08:00→20:00)
[2021-10-27] MEDS: duloxetine 30mg CAPSULE.DR PO SCH (08:00)
[2021-10-27] MEDS: fenofibrate 145mg tablet PO SCH (08:00)
[2021-10-27] MEDS: K and/or MAG REPLACEMENT MC SCH ×2 (08:00→20:00)
[2021-10-27] MEDS: K, MAG and/or Phos replacement - Verify level? MC SCH (08:00)
[2021-10-27] MEDS: apixaban 5mg tablet PO SCH ×2 (08:00→20:00)
[2021-10-27] MEDS: cholecalciferol (vitamin D3) 1,000 unit (25mcg) tablet PO SCH (08:00)
[2021-10-27] MEDS: montelukast 10mg tablet PO SCH (08:00)
[2021-10-27] MEDS: ALPRAZolam 0.5mg tablet PO SCH ×3 (08:00→21:00)
[2021-10-27] MEDS: docusate sod 100mg capsule PO SCH ×2 (08:00→20:00)
[2021-10-27] MEDS: ipratropium/albuterol 3ml nebule NEB SCH ×3 (08:15→20:32)
[2021-10-27] MEDS: ZINC/COPPER/MANGANESE/SELENIUM 0.5 ML, chromic chloride inj. 5 MCG in AA 5%/CALCIUM/LYT... IV SCH ×2 (09:20→23:53)
--- NOTE | 2021-10-27 13:00 | NUR ---
pts sister at bedside visiting
[2021-10-27 13:41] LABS: C-REACTIVE PROTEIN 0.47 MG/DL (0.0-0.5)
--- NOTE | 2021-10-27 14:38 | NUR ---
Problems reprioritized. Patient report given, questions answered & plan of care reviewed with Neema CASTELLANOS.
--- NOTE | 2021-10-27 18:43 | NUR ---
Problems reprioritized. Patient report given, questions answered & plan of care reviewed with JASMIN Riddle.
[2021-10-27] MEDS: insulin glargine (Lantus) pen - multi-dose SQ SCH (20:53)
[2021-10-27] MEDS: quetiapine 100mg tablet PO SCH (21:00)
[2021-10-28] VITALS (24 sets, daily range): BP systolic 93–145; BP diastolic 51–66
[2021-10-28] MEDS: morphine 2 MG/ML inj. syringe IV PRN ×3 (00:07→07:37)
[2021-10-28] MEDS: diltiazem 30mg tablet PO SCH ×4 (02:00→20:00)
[2021-10-28] MEDS: insulin regular, human U-100 3ml vial - multi-dose SQ SCH ×3 (03:30→20:45)
[2021-10-28 03:55] LABS: ALANINE AMINOTRANSFERASE 13 U/L (12-78); ALBUMIN 2.6 G/DL (3.4-5.0); ALBUMIN/GLOBULIN RATIO 0.7 (1.1-1.5); ALKALINE PHOSPHATASE 69 IU/L (46-116); ANION GAP 4 (8-16); ASPARTATE AMINO TRANSFERASE 15 U/L (10-37); BILIRUBIN,TOTAL 0.4 MG/DL (0.1-1.0); BLOOD UREA NITROGEN 32 MG/DL (7-18); BUN/CREATININE RATIO 55.2 (6.6-38.0); C-REACTIVE PROTEIN 0.44 MG/DL (0.0-0.5); CALCIUM 9.3 MG/DL (8.5-10.1); CHLORIDE 98 MMOL/L (99-107); CREATININE 0.58 MG/DL (0.40-0.90); GLUCOSE 159 MG/DL (70-104); MAGNESIUM 2.2 MG/DL (1.5-2.4); PHOSPHORUS 2.4 MG/DL (2.3-4.5); POTASSIUM 3.7 MMOL/L (3.5-5.1); SODIUM 138 MMOL/L (135-145); TOTAL CARBON DIOXIDE 36.1 MMOL/L (24-32); TOTAL PROTEIN 6.3 G/DL (6.4-8.2); eGFR > 90 ML/MIN
[2021-10-28] MEDS: methylPREDNISolone sod succ/PF 40mg inj. IV SCH ×2 (07:41→20:00)
[2021-10-28] MEDS: furosemide 10 MG/1 ML 10ml inj IV SCH (07:42)
[2021-10-28] MEDS: cefepime inj 2 GM in dextrose 5%-water 100 ML IV SCH ×3 (07:52→23:06)
[2021-10-28] MEDS: ALPRAZolam 0.5mg tablet PO SCH ×3 (08:00→20:21)
[2021-10-28] MEDS: K and/or MAG REPLACEMENT MC SCH ×2 (08:00→20:00)
[2021-10-28] MEDS: duloxetine 30mg CAPSULE.DR PO SCH (08:00)
[2021-10-28] MEDS: K, MAG and/or Phos replacement - Verify level? MC SCH (08:00)
[2021-10-28] MEDS: lactobacillus rhamnosus 10,000 MMU CELLS/CAPSULE PO SCH ×2 (08:00→20:01)
[2021-10-28] MEDS: docusate sod 100mg capsule PO SCH ×2 (08:00→20:01)
[2021-10-28] MEDS: apixaban 5mg tablet PO SCH ×2 (08:00→20:01)
[2021-10-28] MEDS: montelukast 10mg tablet PO SCH (08:00)
[2021-10-28] MEDS: fenofibrate 145mg tablet PO SCH (08:00)
[2021-10-28] MEDS: cholecalciferol (vitamin D3) 1,000 unit (25mcg) tablet PO SCH (08:00)
[2021-10-28] MEDS ORDERED: etomidate 2mg/ml inj. ONE (08:00)
[2021-10-28] MEDS: ipratropium/albuterol 3ml nebule NEB SCH ×6 (08:14→23:28)
[2021-10-28] MEDS ORDERED: LIDOcaine 2% 10ml TOPICAL JELLY (Urojet) TP ONE (08:25)
[2021-10-28] MEDS: dexmedetomidin/NS 400mcg/100ml 100 ML IV SCH ×4 (08:39→19:18)
[2021-10-28 08:40] LABS: ABG BASE EXCESS 5.5 mmol/L (-2.0-2.0); ABG HCO3 28.2 mmol/L (22.0-26.0); ABG OXYGEN SATURATION 85.1 % (94-97); ABG PCO2 (T) 34.8 mmHg (32.0-45.0); ABG PO2 (T) 48.7 mmHg (75.0-100.0); ALLEN'S TEST POSITIVE; FCOHb 0.4 % (0.0-3.9); FO2Hb 84.8 % (94-97)
[2021-10-28] MEDS ORDERED: etomidate 2mg/ml inj. IV ONE (09:00)
[2021-10-28] MEDS ORDERED: ipratropium/albuterol 3ml nebule NEB PRN (09:00)
[2021-10-28] MEDS ORDERED: fentaNYL/PF 50MCG/1 ML 2ML syringe IV PRN (09:00)
[2021-10-28] MEDS ORDERED: midazolam 1 mg/ML 2ml injection IV ONE (09:00)
[2021-10-28] MEDS ORDERED: midazolam 1 mg/ML 2ml injection ONE (09:05)
[2021-10-28] MEDS: midazolam 100mg in NS 100ml 100 ML IV PRN ×3 (09:19→20:48)
[2021-10-28] MEDS: FENTANYL-0.9 % NACL/PF 100 ML IV PRN ×3 (09:19→18:53)
[2021-10-28 11:24] LABS: ABG BASE EXCESS 7.8 mmol/L (-2.0-2.0); ABG HCO3 32.4 mmol/L (22.0-26.0); ABG OXYGEN SATURATION 86.8 % (94-97); ABG PCO2 (T) 45.1 mmHg (32.0-45.0); ABG PO2 (T) 53.8 mmHg (75.0-100.0); ALLEN'S TEST POSITIVE; FCOHb 0.5 % (0.0-3.9); FMetHb 0.1 % (0.0-1.5); FO2Hb 86.3 % (94-97); PEEP 10 cm H2O; RESPIRATORY RATE 20 b/min; TIDAL VOLUME 300 mL; TOTAL HEMOGLOBIN 12.7 G/dl (12.0-16.0)
[2021-10-28] MEDS: ZINC/COPPER/MANGANESE/SELENIUM 0.5 ML, chromic chloride inj. 5 MCG in AA 5%/CALCIUM/LYT... IV SCH ×2 (12:12→23:11)
--- NOTE | 2021-10-28 18:11 | NUR ---
Problems reprioritized. Patient report given, questions answered & plan of care reviewed with Elena CASTELLANOS.
[2021-10-28] MEDS: quetiapine 100mg tablet PO SCH (20:21)
[2021-10-28] MEDS: insulin glargine (Lantus) pen - multi-dose SQ SCH (20:42)
[2021-10-29] VITALS (26 sets, daily range): BP systolic 94–155; BP diastolic 37–66
[2021-10-29] MEDS: dexmedetomidin/NS 400mcg/100ml 100 ML IV SCH (00:35)
[2021-10-29] MEDS: insulin regular, human U-100 3ml vial - multi-dose SQ SCH ×4 (01:17→20:36)
[2021-10-29] MEDS: midazolam 100mg in NS 100ml 100 ML IV PRN ×5 (01:18→23:46)
[2021-10-29] MEDS: diltiazem 30mg tablet PO SCH ×4 (01:18→20:00)
[2021-10-29 02:59] LABS: BASOPHILS # (AUTO) 0.1 X10'3 (0-0.2); BASOPHILS % (AUTO) 0.2 % (0-1); EOSINOPHILS % (AUTO) 0.1 % (0-6); HEMATOCRIT 32.7 % (35.0-45.0); HEMOGLOBIN 10.8 g/dl (12.0-16.0); LYMPHOCYTES % (AUTO) 2.7 % (21-51); MEAN CORPUSCULAR HEMOGLOBIN 30.5 PG (27.0-31.0); MEAN CORPUSCULAR VOLUME 92.4 FL (78-98); MEAN PLATELET VOLUME 9.2 FL (7.4-10.4); MONOCYTES # (AUTO) 1.2 X10'3 (0-0.9); MONOCYTES % (AUTO) 3.5 % (2-12); NEUTROPHILS # (AUTO) 32.8 X10'3 (1.8-7.7); NEUTROPHILS % (AUTO) 93.5 % (42-75); PLATELET COUNT 292 X10'3 (140-440); RED BLOOD COUNT 3.54 X10'6 (4.20-5.60); RED CELL DISTRIBUTION WIDTH 14.8 % (11.5-14.5)
[2021-10-29] MEDS: FENTANYL-0.9 % NACL/PF 100 ML IV PRN ×7 (03:00→23:46)
[2021-10-29] MEDS: ipratropium/albuterol 3ml nebule NEB SCH ×6 (03:04→23:31)
[2021-10-29 03:08] LABS: WHITE BLOOD COUNT 35.1 X10'3 (4.5-11.0)
[2021-10-29 03:36] LABS: D-DIMER 3.01 MG/L FEU (0-0.50)
[2021-10-29 03:47] LABS: ALANINE AMINOTRANSFERASE 13 U/L (12-78); ALBUMIN 2.5 G/DL (3.4-5.0); ALBUMIN/GLOBULIN RATIO 0.7 (1.1-1.5); ALKALINE PHOSPHATASE 78 IU/L (46-116); ASPARTATE AMINO TRANSFERASE 24 U/L (10-37); BILIRUBIN,TOTAL 0.3 MG/DL (0.1-1.0); BLOOD UREA NITROGEN 31 MG/DL (7-18); BUN/CREATININE RATIO 54.4 (6.6-38.0); C-REACTIVE PROTEIN 0.55 MG/DL (0.0-0.5); CHLORIDE 102 MMOL/L (99-107); CREATININE 0.57 MG/DL (0.40-0.90); GLUCOSE 166 MG/DL (70-104); MAGNESIUM 2.2 MG/DL (1.5-2.4); PHOSPHORUS 2.9 MG/DL (2.3-4.5); POTASSIUM 4.1 MMOL/L (3.5-5.1); SODIUM 138 MMOL/L (135-145); TRIGLYCERIDES 273 MG/DL (20-135); eGFR > 90 ML/MIN
[2021-10-29 03:59] LABS: ANION GAP 6 (8-16); PREALBUMIN 49.3 MG/DL (19-36)
[2021-10-29 04:27] LABS: ABG BASE EXCESS 4.1 mmol/L (-2.0-2.0); ABG HCO3 28.4 mmol/L (22.0-26.0); ABG OXYGEN SATURATION 85.8 % (94-97); ABG PCO2 (T) 41.6 mmHg (32.0-45.0); ABG PO2 (T) 50.9 mmHg (75.0-100.0); ALLEN'S TEST Modified; FCOHb 0.3 % (0.0-3.9); FMetHb 0.3 % (0.0-1.5); FO2Hb 85.3 % (94-97); PEEP 15 cm H2O; RESPIRATORY RATE 20 b/min; TIDAL VOLUME 300 mL; TOTAL HEMOGLOBIN 10.6 G/dl (12.0-16.0)
[2021-10-29 04:45] LABS: ANISOCYTOSIS 1+; PLATELET ESTIMATE NORMAL; TOTAL CELLS COUNTED 100
[2021-10-29 04:46] LABS: LARGE PLATELETS FEW
[2021-10-29] MEDS: propofol 1000mg/100ml bottle 100 ML IV SCH (04:55)
--- NOTE | 2021-10-29 06:17 | NUR ---
problems reprioritized and addressed with JASMIN Pineda
[2021-10-29] MEDS: cefepime inj 2 GM in dextrose 5%-water 100 ML IV SCH ×3 (07:36→23:43)
[2021-10-29] MEDS: lactobacillus rhamnosus 10,000 MMU CELLS/CAPSULE PO SCH ×2 (07:38→19:01)
[2021-10-29] MEDS: ALPRAZolam 0.5mg tablet PO SCH ×3 (07:39→19:01)
[2021-10-29] MEDS: docusate sod 100mg capsule PO SCH (08:00)
[2021-10-29] MEDS: furosemide 10 MG/1 ML 10ml inj IV SCH (08:03)
[2021-10-29] MEDS: duloxetine 30mg CAPSULE.DR PO SCH (08:10)
[2021-10-29] MEDS: montelukast 10mg tablet PO SCH (08:11)
[2021-10-29] MEDS: cholecalciferol (vitamin D3) 1,000 unit (25mcg) tablet PO SCH (08:11)
[2021-10-29] MEDS: methylPREDNISolone sod succ/PF 40mg inj. IV SCH ×2 (08:11→19:02)
[2021-10-29] MEDS: apixaban 5mg tablet PO SCH ×2 (08:11→19:00)
[2021-10-29] MEDS: K, MAG and/or Phos replacement - Verify level? MC SCH (08:11)
[2021-10-29] MEDS: pantoprazole IV 40 MG in dextrose 5%-water 100 ML IV SCH (08:23)
[2021-10-29] MEDS: fenofibrate 145mg tablet PO SCH (10:07)
[2021-10-29] MEDS: CISatracurium besylate inj. 100 MG in normal saline 100ml IV soln 90 ML IV PRN ×3 (10:08→23:47)
[2021-10-29] MEDS ORDERED: amiodarone 150mg/dext, iso-os 100 ML IV ONE (11:35)
[2021-10-29] MEDS: ZINC/COPPER/MANGANESE/SELENIUM 0.5 ML, chromic chloride inj. 5 MCG in AA 5%/CALCIUM/LYT... IV SCH (13:16)
[2021-10-29] MEDS: mineral oil/petrolatum ophthal oint EACHEYE SCH ×2 (14:00→19:02)
--- NOTE | 2021-10-29 14:50 | NUR ---
F/u 10/29: Pt intubated yesterday w/ respiratory failure tolerating TPN at goal rate. TF okay to start today via NG per clinical account specialist; pending consult at this time. Per recent RN note; pt HR increasing and now stat CXR to rule out pneumothorax. TF recs below in case EN to start today. Noted Propofol at 19.99ml/hr during rounds however now decreased to 7ml/hr per RN via TC; providing additional 185 kcals/day at this time. TG 273 this AM; PN to wean once EN initiates/advances as medically indicated. PALB 49.3 this AM; likely r/t steroids as not overfeeding using estimated nurition needs. Noted LBM 10/23 w/ routine colace started since now able to take PO via NG. Will continue to monitor for nutrition support needs on vent. Recommendations: 1) Continuous TPN per MD using 2:1 Clinimix-E 04/05 with 75 mL/hr goal rate with additional 250 mL lipids to run at 20.83 mL/hr for 12 hours on Tuesdays and Fridays. To provide 1800 mL total volume/day, 90 g AA, 360 g dext (2.94 mg/kg/min dext load), and average 1727 kcal/day with lipids 2) IF TF while remaining on Propofol at 7ml/hr (185 kcals/day); Vital AF at 55ml/hr goal would provide 1320ml volume/day, 1584 kcals, 1069ml water, and 99g protein. 3) IF TF; additional water flush 100ml Q4H 4) monitor Propofol rates for PN/EN adjustment needs 5) Prealbumin/TG Q /; Daily scaled weights 6) Monitor updated scaled wts for EN/PN adjustment needs; no documentation how wt obtained at this time 7) Routine bowel care Addendum: 10/29/21 at [address] Amended: Links added.
[2021-10-29] MEDS ORDERED: amiodarone/D5 360MG/200ML BAG 200 ML IV ONE (17:42)
[2021-10-29] MEDS: amiodarone/D5 360MG/200ML BAG 200 ML IV SCH ×2 (17:45→23:49)
[2021-10-29] MEDS: docusate sodium 100mg/10ml UD cup PO SCH (19:01)
[2021-10-29] MEDS: quetiapine 100mg tablet PO SCH (19:01)
[2021-10-29] MEDS: guaiFENesin/DM 10ml UD oral syrup PO PRN (19:01)
[2021-10-29] MEDS: NORepinephrine 8mg/ 250ml NS 250 ML IV SCH ×2 (20:22→21:16)
[2021-10-29] MEDS: insulin glargine (Lantus) pen - multi-dose SQ SCH (20:32)
[2021-10-30] VITALS (24 sets, daily range): BP systolic 100–130; BP diastolic 51–59
[2021-10-30] MEDS: diltiazem 30mg tablet PO SCH ×2 (01:01→07:43)
[2021-10-30] MEDS: mineral oil/petrolatum ophthal oint EACHEYE SCH ×4 (01:01→20:00)
[2021-10-30] MEDS: amiodarone/D5 360MG/200ML BAG 200 ML IV SCH ×3 (01:05→16:39)
[2021-10-30] MEDS: propofol 1000mg/100ml bottle 100 ML IV SCH ×2 (01:36→10:07)
[2021-10-30] MEDS: insulin regular, human U-100 3ml vial - multi-dose SQ SCH ×3 (01:36→14:13)
[2021-10-30] MEDS: ZINC/COPPER/MANGANESE/SELENIUM 0.5 ML, chromic chloride inj. 5 MCG in AA 5%/CALCIUM/LYT... IV SCH (01:37)
[2021-10-30] MEDS: ipratropium/albuterol 3ml nebule NEB SCH ×6 (02:47→23:19)
[2021-10-30 03:20] LABS: D-DIMER 4.38 MG/L FEU (0-0.50)
[2021-10-30] MEDS: FENTANYL-0.9 % NACL/PF 100 ML IV PRN ×3 (03:49→13:05)
[2021-10-30 03:54] LABS: BASOPHILS # (AUTO) 0.1 X10'3 (0-0.2); BASOPHILS % (AUTO) 0.2 % (0-1); EOSINOPHILS % (AUTO) 0 % (0-6); HEMATOCRIT 33.5 % (35.0-45.0); HEMOGLOBIN 10.7 g/dl (12.0-16.0); LYMPHOCYTES # (AUTO) 0.9 X10'3 (1.1-4.8); MEAN CORPUSCULAR HEMOGLOBIN 30.7 PG (27.0-31.0); MEAN CORPUSCULAR HGB CONC 31.8 g/dL (33.0-36.5); MEAN CORPUSCULAR VOLUME 96.6 FL (78-98); MEAN PLATELET VOLUME 9.6 FL (7.4-10.4); MONOCYTES # (AUTO) 2.7 X10'3 (0-0.9); NEUTROPHILS # (AUTO) 40.4 X10'3 (1.8-7.7); NEUTROPHILS % (AUTO) 91.8 % (42-75); PLATELET COUNT 378 X10'3 (140-440); RED BLOOD COUNT 3.47 X10'6 (4.20-5.60); RED CELL DISTRIBUTION WIDTH 15.2 % (11.5-14.5)
[2021-10-30 04:00] LABS: C-REACTIVE PROTEIN 4.76 MG/DL (0.0-0.5); WHITE BLOOD COUNT 44.1 X10'3 (4.5-11.0)
[2021-10-30 04:33] LABS: ABG BASE EXCESS -1.1 mmol/L (-2.0-2.0); ABG HCO3 33.2 mmol/L (22.0-26.0); ABG OXYGEN SATURATION 94.9 % (94-97); ABG PCO2 (T) 134.7 mmHg (32.0-45.0); ABG PO2 (T) 83.7 mmHg (75.0-100.0); ALLEN'S TEST Modified; FCOHb 0.4 % (0.0-3.9); FMetHb 0.3 % (0.0-1.5); FO2Hb 94.2 % (94-97); PATIENT TEMPERATURE 36.6; PEEP 15 cm H2O; RESPIRATORY RATE 20 b/min; TIDAL VOLUME 300 mL; TOTAL HEMOGLOBIN 11.7 G/dl (12.0-16.0)
[2021-10-30 05:22] LABS: ALANINE AMINOTRANSFERASE 142 U/L (12-78); ALBUMIN 2.3 G/DL (3.4-5.0); ALBUMIN/GLOBULIN RATIO 0.6 (1.1-1.5); ALKALINE PHOSPHATASE 171 IU/L (46-116); ANION GAP 9 (8-16); ASPARTATE AMINO TRANSFERASE 133 U/L (10-37); BILIRUBIN,TOTAL 0.6 MG/DL (0.1-1.0); BLOOD UREA NITROGEN 51 MG/DL (7-18); BUN/CREATININE RATIO 42.5 (6.6-38.0); CALCIUM 8.5 MG/DL (8.5-10.1); CHLORIDE 99 MMOL/L (99-107); GLUCOSE 257 MG/DL (70-104); MAGNESIUM 2.3 MG/DL (1.5-2.4); PHOSPHORUS 6.5 MG/DL (2.3-4.5); POTASSIUM 5.6 MMOL/L (3.5-5.1); SODIUM 136 MMOL/L (135-145); TOTAL CARBON DIOXIDE 27.7 MMOL/L (24-32); TOTAL PROTEIN 6.2 G/DL (6.4-8.2); eGFR 45 ML/MIN
[2021-10-30] MEDS: midazolam 100mg in NS 100ml 100 ML IV PRN ×3 (05:53→16:39)
[2021-10-30] MEDS: CISatracurium besylate inj. 100 MG in normal saline 100ml IV soln 90 ML IV PRN ×3 (06:32→17:09)
[2021-10-30 06:50] LABS: PLATELET ESTIMATE NORMAL; TOTAL CELLS COUNTED 100
[2021-10-30] MEDS: cefepime inj 2 GM in dextrose 5%-water 100 ML IV SCH ×2 (07:40→16:37)
[2021-10-30] MEDS: levoFLOXACIN-Levaquin 750MG/D5 150 ML IV SCH (07:41)
[2021-10-30] MEDS: pantoprazole IV 40 MG in dextrose 5%-water 100 ML IV SCH (07:41)
[2021-10-30] MEDS: cholecalciferol (vitamin D3) 1,000 unit (25mcg) tablet PO SCH (07:42)
[2021-10-30] MEDS: furosemide 10 MG/1 ML 10ml inj IV SCH (07:42)
[2021-10-30] MEDS: duloxetine 30mg CAPSULE.DR PO SCH (07:42)
[2021-10-30] MEDS: docusate sodium 100mg/10ml UD cup PO SCH (07:42)
[2021-10-30] MEDS: lactobacillus rhamnosus 10,000 MMU CELLS/CAPSULE PO SCH (07:43)
[2021-10-30] MEDS: apixaban 5mg tablet PO SCH (07:43)
[2021-10-30] MEDS: methylPREDNISolone sod succ/PF 40mg inj. IV SCH ×2 (07:43→20:00)
[2021-10-30] MEDS: montelukast 10mg tablet PO SCH (07:43)
[2021-10-30] MEDS: ALPRAZolam 0.5mg tablet PO SCH ×2 (07:44→12:27)
[2021-10-30] MEDS: K, MAG and/or Phos replacement - Verify level? MC SCH (07:44)
[2021-10-30 07:48] LABS: ABG BASE EXCESS 1.5 mmol/L (-2.0-2.0); ABG HCO3 32.9 mmol/L (22.0-26.0); ABG OXYGEN SATURATION 94.5 % (94-97); ABG PCO2 (T) 108.2 mmHg (32.0-45.0); ABG PO2 (T) 85.5 mmHg (75.0-100.0); ALLEN'S TEST POSITIVE; FCOHb 0.3 % (0.0-3.9); FMetHb 0.3 % (0.0-1.5); FO2Hb 93.9 % (94-97); PATIENT TEMPERATURE 38.5; PEEP 15 cm H2O; RESPIRATORY RATE 26 b/min; TIDAL VOLUME 350 mL; TOTAL HEMOGLOBIN 11.2 G/dl (12.0-16.0)
[2021-10-30] MEDS: fenofibrate 145mg tablet PO SCH (10:08)
[2021-10-30] MEDS: MVI, adult No.4 with vit. K 10 ML in dextrose 5% water 500ml 500 ML IV SCH ×2 (11:11)
[2021-10-30] MEDS: NORepinephrine 8mg/ 250ml NS 250 ML IV SCH (12:31)
[2021-10-30] MEDS ORDERED: fentaNYL/PF inj 2,500 MCG in normal saline 250ml IV soln 200 ML IV PRN (13:10)
--- NOTE | 2021-10-30 13:28 | NUR ---
TF consult: Pt remains intubated, to begin TF and wean TPN per MD at critical care rounds, see recommendations below. Per EMR Propofol running at 2.436 mL/hr though rate visualized at bedside noted to be running at 9.72 mL/hr providing roughly 256 kcal/day, TF recommendations adjusted accordingly. LBM 10/23, pt started on routine bowel care 10/29. Will continue to follow closely and make recommendations as appropriate. Recommendations: 1) Given Propofol at 9.72 mL/hr (256 kcal/day), continuous TF via OGT using Vital AF with 55 mL/hr goal rate to provide 1320 mL total volume/day, 1584 kcal, 99 g protein, and 1069 mL water 2) Additional 100 mL water flush Q4H; monitor serum Na and need to adjust 3) Monitor Propofol rate and adjust TF recommendations as appropriate 4) With advancement in TF wean continuous TPN using 2:1 Clinimix-E 04/05 with 75 mL/hr goal rate with additional 250 mL lipids to run at 20.83 mL/hr for 12 hours on Tuesdays and Fridays. To provide 1800 mL total volume/day, 90 g AA, 360 g dext (2.94 mg/kg/min dext load), and average 1727 kcal/day with lipids 5) Prealbumin q Friday/ 6) Daily scaled weights 7) Monitor for updated scaled wt and adjust nutrition recommendations as appropriate; no documentation of how wt obtained at this time 8) Routine bowel care Addendum: 10/30/21 at [address] Amended: Links added.
[2021-10-30] MEDS ORDERED: cholecalciferol (vitamin D3) 1,000 unit (25mcg) tablet NG SCH (13:37)
[2021-10-30] MEDS ORDERED: dextrose ORAL solution 15 GM/59 ML bottle NG PRN ×2 (13:37)
[2021-10-30] MEDS ORDERED: acetaminophen 325mg/10.15ml oral unit dose solution NG PRN (13:40)
[2021-10-30] MEDS ORDERED: fenofibrate 145mg tablet NG SCH (13:46)
[2021-10-30] MEDS ORDERED: mag hydrox/Alum hydrox/simeth 30ml oral suspension NG PRN (13:47)
[2021-10-30] MEDS ORDERED: guaiFENesin/DM 10ml UD oral syrup NG PRN (13:47)
[2021-10-30] MEDS ORDERED: montelukast 10mg tablet NG SCH (13:49)
[2021-10-30] MEDS ORDERED: potassium Cl 20 mEq SR tablet NG PRN ×2 (13:50)
[2021-10-30] MEDS: diltiazem 30mg tablet NG SCH ×2 (14:17→20:00)
[2021-10-30 15:47] LABS: ABG BASE EXCESS -1.2 mmol/L (-2.0-2.0); ABG HCO3 29.2 mmol/L (22.0-26.0); ABG PCO2 (T) 91.9 mmHg (32.0-45.0); ABG PO2 (T) 68.8 mmHg (75.0-100.0); ALLEN'S TEST POSITIVE; FCOHb 0.3 % (0.0-3.9); FMetHb 0.1 % (0.0-1.5); FO2Hb 90.6 % (94-97); PATIENT TEMPERATURE 37.8; PEEP 15 cm H2O; RESPIRATORY RATE 30 b/min; TIDAL VOLUME 350 mL
[2021-10-30] MEDS: apixaban 5mg tablet NG SCH (20:00)
[2021-10-30] MEDS: lactobacillus rhamnosus 10,000 MMU CELLS/CAPSULE NG SCH (20:00)
[2021-10-30] MEDS: docusate sodium 100mg/10ml UD cup NG SCH (20:00)
[2021-10-30] MEDS ORDERED: vancomycin 1,500 MG in NS 300ml IV soln IV ONE (20:19)
[2021-10-30] MEDS: ALPRAZolam 0.5mg tablet NG SCH (21:00)
[2021-10-30] MEDS: quetiapine 100mg tablet NG SCH (21:00)
[2021-10-30] MEDS: insulin glargine (Lantus) pen - multi-dose SQ SCH (21:57)
[2021-10-31] VITALS (24 sets, daily range): BP systolic 127–151; BP diastolic 52–60
[2021-10-31] MEDS: amiodarone/D5 360MG/200ML BAG 200 ML IV SCH ×4 (00:05→18:19)
[2021-10-31] MEDS: cefepime inj 2 GM in dextrose 5%-water 100 ML IV SCH ×3 (00:41→17:50)
[2021-10-31] MEDS: mineral oil/petrolatum ophthal oint EACHEYE SCH ×4 (02:00→20:00)
[2021-10-31] MEDS: diltiazem 30mg tablet NG SCH ×4 (02:00→20:00)
[2021-10-31] MEDS: ipratropium/albuterol 3ml nebule NEB SCH ×6 (02:50→23:00)
[2021-10-31 03:22] LABS: C-REACTIVE PROTEIN 2.48 MG/DL (0.0-0.5)
[2021-10-31 03:46] LABS: ABG BASE EXCESS -4.2 mmol/L (-2.0-2.0); ABG HCO3 25.2 mmol/L (22.0-26.0); ABG OXYGEN SATURATION 86.4 % (94-97); ABG PCO2 (T) 71.9 mmHg (32.0-45.0); ABG PO2 (T) 54.1 mmHg (75.0-100.0); ALLEN'S TEST Modified; FCOHb 0.1 % (0.0-3.9); FMetHb 0.1 % (0.0-1.5); FO2Hb 86.2 % (94-97); PATIENT TEMPERATURE 36.7; PEEP 15 cm H2O; RESPIRATORY RATE 30 b/min; TIDAL VOLUME 350 mL
[2021-10-31 04:08] LABS: D-DIMER 1.73 MG/L FEU (0-0.50)
[2021-10-31 04:18] LABS: ALANINE AMINOTRANSFERASE 208 U/L (12-78); ALBUMIN 1.5 G/DL (3.4-5.0); ALBUMIN/GLOBULIN RATIO 0.5 (1.1-1.5); ALKALINE PHOSPHATASE 131 IU/L (46-116); ANION GAP 13 (8-16); ASPARTATE AMINO TRANSFERASE 136 U/L (10-37); BILIRUBIN,TOTAL 0.6 MG/DL (0.1-1.0); BLOOD UREA NITROGEN 68 MG/DL (7-18); BUN/CREATININE RATIO 51.9 (6.6-38.0); CALCIUM 6.7 MG/DL (8.5-10.1); CHLORIDE 99 MMOL/L (99-107); CREATININE 1.31 MG/DL (0.40-0.90); MAGNESIUM 1.6 MG/DL (1.5-2.4); PHOSPHORUS 3.6 MG/DL (2.3-4.5); SODIUM 129 MMOL/L (135-145); TOTAL PROTEIN 4.5 G/DL (6.4-8.2); eGFR 41 ML/MIN
[2021-10-31 04:21] LABS: GLUCOSE 121 MG/DL (70-104); POTASSIUM 4.6 MMOL/L (3.5-5.1)
[2021-10-31] MEDS: propofol 1000mg/100ml bottle 100 ML IV SCH ×3 (04:28→23:24)
[2021-10-31] MEDS: midazolam 100mg in NS 100ml 100 ML IV PRN ×4 (04:28→23:21)
[2021-10-31] MEDS: CISatracurium besylate inj. 100 MG in normal saline 100ml IV soln 90 ML IV PRN ×2 (07:16→12:53)
[2021-10-31] MEDS: lactobacillus rhamnosus 10,000 MMU CELLS/CAPSULE NG SCH ×2 (07:45→20:00)
[2021-10-31] MEDS: apixaban 5mg tablet NG SCH ×2 (07:45→20:00)
[2021-10-31] MEDS: ALPRAZolam 0.5mg tablet NG SCH ×3 (07:46→21:00)
[2021-10-31] MEDS: duloxetine 30mg CAPSULE.DR PO SCH (07:46)
[2021-10-31] MEDS: docusate sodium 100mg/10ml UD cup NG SCH ×2 (07:46→20:00)
[2021-10-31] MEDS: methylPREDNISolone sod succ/PF 40mg inj. IV SCH ×2 (07:47→20:00)
[2021-10-31] MEDS: pantoprazole IV 40 MG in dextrose 5%-water 100 ML IV SCH (07:47)
[2021-10-31] MEDS: levoFLOXACIN-Levaquin 750MG/D5 150 ML IV SCH (07:48)
[2021-10-31] MEDS ORDERED: multi-vitamin w/minerals & ferrous gluconate 9 MG/15 ML oral LIQUID NG SCH (08:00)
[2021-10-31] MEDS: K, MAG and/or Phos replacement - Verify level? MC SCH (08:00)
[2021-10-31] MEDS ORDERED: furosemide 40mg/4ml inj IV SCH (08:00)
[2021-10-31] MEDS ORDERED: micafungin inj 100 MG in normal saline 100ml IV soln 100 ML IV SCH (08:00)
[2021-10-31] MEDS: insulin regular, human U-100 3ml vial - multi-dose SQ SCH ×2 (08:26→12:52)
[2021-10-31] MEDS ORDERED: sodium bicarbonate (8.4%) inj. 150 MEQ in dextrose 5%-water 1,000 ML IV SCH (08:45)
[2021-10-31] MEDS: NORepinephrine 8mg/ 250ml NS 250 ML IV SCH (09:06)
[2021-10-31 09:14] LABS: EOSINOPHILS % (AUTO) 0.1 % (0-6); LYMPHOCYTES # (AUTO) 0.9 X10'3 (1.1-4.8); MEAN PLATELET VOLUME 9.4 FL (7.4-10.4); MONOCYTES # (AUTO) 0.9 X10'3 (0-0.9); NEUTROPHILS % (AUTO) 93.3 % (42-75)
[2021-10-31 09:16] LABS: BASOPHILS # (AUTO) 0.1 X10'3 (0-0.2); BASOPHILS % (AUTO) 0.2 % (0-1); HEMATOCRIT 25.8 % (35.0-45.0); HEMOGLOBIN 8.4 g/dl (12.0-16.0); LYMPHOCYTES % (AUTO) 3.1 % (21-51); MEAN CORPUSCULAR HEMOGLOBIN 30.9 PG (27.0-31.0); MEAN CORPUSCULAR HGB CONC 32.5 g/dL (33.0-36.5); MEAN CORPUSCULAR VOLUME 95.1 FL (78-98); MONOCYTES % (AUTO) 3.3 % (2-12); NEUTROPHILS # (AUTO) 26.5 X10'3 (1.8-7.7); PLATELET COUNT 203 X10'3 (140-440); RED BLOOD COUNT 2.71 X10'6 (4.20-5.60); RED CELL DISTRIBUTION WIDTH 15.2 % (11.5-14.5)
[2021-10-31 09:21] LABS: WHITE BLOOD COUNT 28.4 X10'3 (4.5-11.0)
[2021-10-31 09:53] LABS: NUCLEATED RED BLOOD CELLS 1 /100WBC (0-0); PLATELET ESTIMATE NORMAL; TOTAL CELLS COUNTED 100
[2021-10-31] MEDS ORDERED: sodium bicarbonate (8.4%) inj. 75 MEQ in sodium chloride 0.45% 1,000 ML IV SCH (11:45)
--- NOTE | 2021-10-31 12:19 | NUR ---
F/u: Patient's serum Na down to 129 MMOL/L, water flushes to discontinue at this time per MD. CASTELLANOS updated EMR. Addendum: 10/31/21 at [address] Amended: Links added.
[2021-10-31] MEDS ORDERED: duloxetine 30mg CAPSULE.DR NG SCH (13:47)
[2021-10-31] MEDS ORDERED: LORazepam 2 mg/ml vial IV PRN (17:05)
[2021-10-31] MEDS ORDERED: morphine 10mg/ml inj. IV PRN (17:05)
[2021-10-31] MEDS ORDERED: vancomycin/NS 1 GM ADD-VANTAGE 250 ML IV SCH (20:00)
[2021-10-31] MEDS: insulin glargine (Lantus) pen - multi-dose SQ SCH (21:00)
[2021-10-31] MEDS: quetiapine 100mg tablet NG SCH (21:00)
[2021-11-01] VITALS: BP 135/54
[2021-11-01 01:00] VITALS: BP 122/49
--- NOTE | 2021-11-01 01:13 | NUR ---
PATIENT DESATURATING IN THE 40'S ADAM NOTIFIED OF CHANGE IN CONDITION AND GIVEN OPTION TO BE PRESENT AT BEDSIDE . DAUGHTER AND OTW.
[2021-11-01 01:45] VITALS: BP 0/0
--- NOTE | 2021-11-01 01:45 | NUR ---
FAMILY AT BEDSIDE . EXPRESS THAT HE WANTED TO WITHDRAW CARE AT THIS TIME . DR BARBOSA NOTIFIED ORDERS RECEIVED . CARE WITHDRAWN . PATIENT PASSED COMFORTABLY WITH FAMILY AT BEDSIDE PRONOUNCED AT 0145 . NOTIFIED . FAMILY GRIEVING APPROPRIATE . ADAM SIGNED RELEASED OF REMAINS . ALL BELONGINGS WERE TAKE BY FAMILY ON DAYSHIFT . POST MORTUM CARE PERFORMED . O THE WAY.
[2021-11-01] MEDS ORDERED: MULTIVIT-MIN/FERROUS GLUCONATE 9 MG/15 ML LIQUID NG SCH (08:00)
[2021-11-02] MEDS ORDERED: VANCOMYCIN LEVEL IV ONE (19:30)
== END 2021-11-01 04:21 | DRG 208 ==
LOC: ER 09:54 → ED HOLD 14:22 → PCU 3S 19:20 → CICU 2S 10-27 03:49
PROVIDERS: ADMIT Family Medicine; ATTEND Family Medicine
PROC: B32T1ZZ Computerized Tomography (CT Scan) of Left Pulmonary Artery using Low Osmolar Contrast (ICD-10-PCS; 2021-10-16)
PROC: B3201ZZ Computerized Tomography (CT Scan) of Thoracic Aorta using Low Osmolar Contrast (ICD-10-PCS; 2021-10-16)
PROC: B32S1ZZ Computerized Tomography (CT Scan) of Right Pulmonary Artery using Low Osmolar Contrast (ICD-10-PCS; 2021-10-16)
PROC: 5A0935A Assistance with Respiratory Ventilation, Less than 24 Consecutive Hours, High Flow/Velocity Cannula (ICD-10-PCS; 2021-10-16)
PROC: 5A09457 Assistance with Respiratory Ventilation, 24-96 Consecutive Hours, Continuous Positive Airway Pressure (ICD-10-PCS; 2021-10-17)
PROC: 5A0935A Assistance with Respiratory Ventilation, Less than 24 Consecutive Hours, High Flow/Velocity Cannula (ICD-10-PCS; 2021-10-17)
PROC: 5A09357 Assistance with Respiratory Ventilation, Less than 24 Consecutive Hours, Continuous Positive Airway Pressure (ICD-10-PCS; 2021-10-21)
PROC: 5A09457 Assistance with Respiratory Ventilation, 24-96 Consecutive Hours, Continuous Positive Airway Pressure (ICD-10-PCS; 2021-10-22)
PROC: 02HV33Z Insertion of Infusion Device into Superior Vena Cava, Percutaneous Approach (ICD-10-PCS; 2021-10-24)
PROC: B548ZZA Ultrasonography of Superior Vena Cava, Guidance (ICD-10-PCS; 2021-10-24)
PROC: 5A0935A Assistance with Respiratory Ventilation, Less than 24 Consecutive Hours, High Flow/Velocity Cannula (ICD-10-PCS; 2021-10-25)
PROC: 5A09357 Assistance with Respiratory Ventilation, Less than 24 Consecutive Hours, Continuous Positive Airway Pressure (ICD-10-PCS; 2021-10-26)
PROC: 5A09457 Assistance with Respiratory Ventilation, 24-96 Consecutive Hours, Continuous Positive Airway Pressure (ICD-10-PCS; 2021-10-27)
PROC: 5A1945Z Respiratory Ventilation, 24-96 Consecutive Hours (ICD-10-PCS; principal; 2021-10-28)
PROC: 0BH17EZ Insertion of Endotracheal Airway into Trachea, Via Natural or Artificial Opening (ICD-10-PCS; 2021-10-28)
DX: J80 Acute respiratory distress syndrome (principal); I50.21 Acute systolic (congestive) heart failure; J15.9 Unspecified bacterial pneumonia; I21.A1 Myocardial infarction type 2; A41.9 Sepsis, unspecified organism; E46 Unspecified protein-calorie malnutrition; E87.2 Acidosis; I48.92 Unspecified atrial flutter; J93.9 Pneumothorax, unspecified; R57.9 Shock, unspecified; Z99.11 Dependence on respirator [ventilator] status; Z66 Do not resuscitate; Z51.5 Encounter for palliative care; E66.01 Morbid (severe) obesity due to excess calories; E78.5 Hyperlipidemia, unspecified; F41.9 Anxiety disorder, unspecified; F32.A Depression, unspecified; U09.9 Post COVID-19 condition, unspecified; E11.65 Type 2 diabetes mellitus with hyperglycemia; Z96.659 Presence of unspecified artificial knee joint; M54.9 Dorsalgia, unspecified; G89.4 Chronic pain syndrome; E87.6 Hypokalemia; I11.0 Hypertensive heart disease with heart failure; I48.0 Paroxysmal atrial fibrillation; J98.2 Interstitial emphysema; Z68.30 Body mass index [BMI] 30.0-30.9, adult; Z80.1 Family history of malignant neoplasm of trachea, bronchus and lung; Z79.84 Long term (current) use of oral hypoglycemic drugs; Z88.5 Allergy status to narcotic agent; Z88.8 Allergy status to other drugs, medicaments and biological substances; Z79.899 Other long term (current) drug therapy; Z78.1 Physical restraint status
CPT/HCPCS: 36415; 36573; 36600; 71045; 71275; 80053; 82550; 82803; 82948; 83036; 83605; 83735; 83880; 84100; 84132; 84134; 84145; 84478; 84484; 85007; 85008; 85018; 85025; 85379; 86140; 87040; 87070; 87081; 93005; 93306; 94002; 94003; 94640; 94660; 94760; 97110; 97161; 97530; 99285; C9113; G0378; J0282; J0456; J0692; J0696; J1815; J1940; J1956; J2248; J2250; J2270; J2405; J2704; J2920; J3010; J3370; J3475; J3480; J3490; J7040; J7050; J7060; J7070; Q9967